=== PATIENT | female | born 1975 | race Hispanic/Latino ===

== ENCOUNTER 2019-08-10 13:52 | Emergency (ER) | payer SELFPAY ==
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
[2019-08-10 15:02] LABS: Albumin 3.7 g/dL (3.4-5.0); Bilirubin Total 0.3 mg/dL (0.2-1.0); Potassium 3.8 mmol/L (3.5-5.1); Protein, Total 7.4 g/dL (6.4-8.2)
[2019-08-10 15:09] LABS: Absolute Lymphocytes (CBC) 1.7 K/uL (0.7-4.9); Basophils % 0.6 % (0-1.3); Hematocrit 36.1 % (36.0-45.0); Lymphocytes % 24.5 % (15.3-44.8); MPV 8.6 fL (7.6-11.3); RBC Red Blood Cell Count 4.35 M/uL (3.86-4.86)
[2019-08-10] MEDS ORDERED: MORPHINE 4 MG/ML SYR ONE (15:19)
[2019-08-10] MEDS ORDERED: CEFAZOLIN/SWI 1gm 1 GM/10 ML SYR ONE (15:20)
[2019-08-10] MEDS ORDERED: TETANUS & DIPHTHERIA TOX,ADULT 0.5 ML VIAL ONE (15:20)
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
[2019-08-10 15:55] VITALS: TEMP 97.6; O2SAT 98
[2019-08-10 15:56] VITALS: BP 122/88
== END 2019-08-10 15:48 | disposition home or self-care (01) ==
LOC: ER 13:52
DX: M79.601 Pain in right arm (principal); Z18.10 Retained metal fragments, unspecified; Z23 Encounter for immunization
CPT/HCPCS: 36415; 80053; 85025; 90471; 90714; 96374; 96375; 99284; J0690

== ENCOUNTER 2023-09-14 02:18 | Emergency (ER) | payer SELFPAY ==
--- OUTSIDE RECORDS SUMMARY | 2023-09-14 03:21 | XMS REPORT | Continuity of Care Document ---
:1975 Author Organization [facility] t Address [address] [place] [address] Care Team Providers Name Role Phone DENISE OSULLIVAN Primary Care Physician Unavailable MARYANNE GUTIÉRREZ Attending Clinician Unavailable Rola Noland LVN Attending Clinician Unavailable Kerry Alvarez MA Attending Clinician Unavailable DENISE OSULLIVAN Attending Clinician Unavailable Maryanne Gutiérrez MD Attending Clinician Doctor Unassigned, [place] Attending Clinician Unavailable Arlette Ga MA Attending Clinician Unavailable Cathie Henderson RN Attending Clinician Unavailable [facility] Attending Clinician Unavailable Cathie Talley RN Attending Clinician Unavailable Deandre Denise CLINTON Attending Clinician [phone] Dasha Agustin CNM Attending Clinician ZEENAT LAWS Attending Clinician Unavailable ZEENAT LAWS Attending Clinician Unavailable ALEXANDRIA ASHFORD Attending Clinician Unavailable Christina Carr MD Attending Clinician [facility] Attending Clinician Unavailable Alexandria Nolan Attending Clinician Bruna Wagner LVN Attending Clinician Unavailable Ramiro Ballard DO Attending Clinician Beverly ESCALANTE, Philipp Clayton Attending Clinician Unavailable Payers Payer Name Policy Type Policy Number Effective Date Expiration Date [employer]ibr[employer] [id number] 2022 JOHN 0-100% 00:00:00 Problems Condition Condition Condition Status Onset Resolution Last Treating Co mments Source Name Details Category Date Date Treatment Clinician Date Seasonal Seasonal Disease Active Unive rs allergic allergic 31 ity of rhinitis rhinitis 00:00: [place] [id number] Medical Branch Encounter Encounter Disease Active Uni vers for for 9-20 ity of [place]pt [place] 00 Medical management management Br anch , , unspecifie unspecifie d type d type History of History of Disease Active U nivers bilateral bilateral 9-20 ity of tubal tubal 00:00: [place] ligation ligation 00 Medica l Branch Morbid Morbid Disease Active Univers obesity obesity 9-20 ity of 00:00: [address] [place] [address] Branch BMI BMI Disease Active Univers 40.0-44.9, 40.0-44.9, 9-20 it y of adult adult 00:00: [address] 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 3-08 [place] disorder[place], [place] episode, episode, 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 it y of ciency ciency 00:00: [place] virus virus 00 Medical infection) infection) Br anch Allergies, Adverse Reactions, Alerts Allergy Allergy Status Severity Reaction(s) Onset Inactive Treating Comm ents Source Name Type Date Date Clinician NO KNOWN Drug Active Univers ALLERGIE Class ity of S [facility] Social History Social Habit Start Date Stop Date Quantity Comments Source History SDOH University o f Alcohol Frequency [place] [facility] History SDOH University o f Alcohol Std Drinks [facility] History SDKS University o f Alcohol Binge [place] [facility] [place] Gender identity Universit y [facility] to 2023-01-25 2023-02-04 Not sure University of SARS-CoV-2 (event) 00:00:00 09:55:00 [facility] Alcohol intake 2023-02-04 2023-02-04 Current drinker Unive rsity of 00:00:00 00:00:00 of alcohol [facility] (finding) [place] Alcohol Comment 2022-07-17 2022-07-17 social Universit y of 00:00:00 00:00:00 [facility] Tobacco use and 2022-07-02 2022-07-02 Smokeless Universit y of exposure 00:00:00 00:00:00 tobacco non-user [facility] History of Social 2021-12-25 2021-12-25 Univers ity of function 00:00:00 00:00:00 [facility] Sex [birth year] Universit y of 00:00:00 00:00:00 [facility] Smoking Status Start Date Stop Date Source Never smoked tobacco [facility] Medications Ordered Filled Start Stop Current Ordering Indication Dosage Frequency Signature Comments Components Source Medication Medication Date Date Medication? Clinician (SIG) Name Name abacavir-do 2022-10 Yes [id number] 1{tbl} Take 1 Univers lutegravir- 0-02 tablet by ity of lamivudine 00:00: mouth [place] (TRIUMEQ) 00 daily. Medical 600-50-300 Branch mg per tablet abacavir-do 2022-10 Yes [id number] 1{tbl} Take 1 Univers lutegravir- 0-02 tablet by ity of lamivudine 00:00: mouth [place] (TRIUMEQ) 00 daily. Medical 600-50-300 Branch mg per tablet abacavir-do 2022-10 Yes [id number] 1{tbl} Take 1 Univers lutegravir- 0-02 tablet by ity of lamivudine 00:00: mouth [place] (TRIUMEQ) 00 daily. Medical 600-50-300 Branch mg per tablet abacavir-do 2022-10 Yes [id number] 1{tbl} Take 1 Univers lutegravir- 0-02 tablet by ity of lamivudine 00:00: mouth [place] (TRIUMEQ) 00 daily. Medical 600-50-300 Branch mg per tablet abacavir-do 2022-10- No [id number] 1{tbl} Take 1 Univers lutegravir- 0-02 10-02 tablet by it y of lamivudine 00:00: 00:00 mouth [place] (TRIUMEQ) 00 :00 daily. Medical 600-50-300 Branch mg per tablet abacavir-do 2022-10- No [id number] 1{tbl} Take 1 Univers lutegravir- 0-02 10-02 tablet by it y of lamivudine 00:00: 00:00 mouth [place] (TRIUMEQ) 00 :00 daily. Medical 600-50-300 Branch mg per tablet metroNIDAZO 0 2022- No [id number] 500mg Take 1 Univers LE 500 mg 4-25 05-03 tablet by ity of tablet 00:00: 04:59 mouth [place] 00 :00 every 12 Medical (twelve) Branch hours for 7 days. metroNIDAZO 0 2022- No [id number] 500mg Take 1 Univers LE 500 mg 4-25 05-03 tablet by ity of tablet 00:00: 04:59 mouth [place] 00 :00 every 12 Medical (twelve) Branch hours for 7 days. metroNIDAZO 2022- No [id number] 500mg Take 1 Univers LE 500 mg 4-25 05-03 tablet by ity of tablet 00:00: 04:59 mouth [place] 00 :00 every 12 Medical (twelve) Branch hours for 7 days. abacavir-do Yes 1{tbl} Take 1 Un negrita lutegravir- 4-20 tablet by ity of lamivudine 00:00: mouth [place] (TRIUMEQ) 00 daily. Medical 600-50-300 Branch mg per tablet abacavir-do Yes 1{tbl} Take 1 Un negrita lutegravir- 4-20 tablet by ity of lamivudine 00:00: mouth [place] (TRIUMEQ) 00 daily. Medical 600-50-300 Branch mg per tablet abacavir-do 0 Yes 1{tbl} Take 1 Un negrita lutegravir- 4-20 tablet by ity of lamivudine 00:00: mouth [place] (TRIUMEQ) 00 daily. Medical 600-50-300 Branch mg per tablet abacavir-do Yes 1{tbl} Take 1 Un negrita lutegravir- 4-20 tablet by ity of lamivudine 00:00: mouth [place] (TRIUMEQ) 00 daily. Medical 600-50-300 Branch mg per tablet abacavir-do 2022-0 Yes 1{tbl} Take 1 Un negrita lutegravir- 4-20 tablet by ity of lamivudine 00:00: mouth [place] (TRIUMEQ) 00 daily. Medical 600-50-300 Branch mg per tablet abacavir-do 2022-0 Yes 1{tbl} Take 1 Un negrita lutegravir- 4-20 tablet by ity of lamivudine 00:00: mouth [place] (TRIUMEQ) 00 daily. Medical 600-50-300 Branch mg per tablet abacavir-do 2022-0 Yes 1{tbl} Take 1 Un negrita lutegravir- 4-20 tablet by ity of lamivudine 00:00: mouth [place] (TRIUMEQ) 00 daily. Medical 600-50-300 Branch mg per tablet abacavir-do 2022-0 Yes 1{tbl} Take 1 Un negrita lutegravir- 4-20 tablet by ity of lamivudine 00:00: mouth [place] (TRIUMEQ) 00 daily. Medical 600-50-300 Branch mg per tablet abacavir-do 2022-0 Yes 1{tbl} Take 1 Un negrita lutegravir- 4-20 tablet by ity of lamivudine 00:00: mouth [place] (TRIUMEQ) 00 daily. Medical 600-50-300 Branch mg per tablet abacavir-do 2022-0 Yes 1{tbl} Take 1 Un negrita lutegravir- 4-20 tablet by ity of lamivudine 00:00: mouth [place] (TRIUMEQ) 00 daily. Medical 600-50-300 Branch mg per tablet abacavir-do 2022-0 Yes 1{tbl} Take 1 Un negrita lutegravir- 4-20 tablet by ity of lamivudine 00:00: mouth [place] (TRIUMEQ) 00 daily. Medical 600-50-300 Branch mg per tablet abacavir-do 2022-0 Yes 1{tbl} Take 1 Un negrita lutegravir- 4-20 tablet by ity of lamivudine 00:00: mouth [place] (TRIUMEQ) 00 daily. Medical 600-50-300 Branch mg per tablet abacavir-do 2022-0 Yes 1{tbl} Take 1 Un negrita lutegravir- 4-20 tablet by ity of lamivudine 00:00: mouth [place] (TRIUMEQ) 00 daily. Medical 600-50-300 Branch mg per tablet abacavir-do 0 2022- No 1{tbl} Take 1 U nivers lutegravir- 4-20 10-02 tablet by it y of lamivudine 00:00: 00:00 mouth [place] (TRIUMEQ) 00 :00 daily. Medical 600-50-300 Branch mg per tablet abacavir-do 0 3- No 1{tbl} Take 1 U nivers lutegravir- 4-20 10-02 tablet by it y of lamivudine 00:00: 00:00 mouth [place] (TRIUMEQ) 00 :00 daily. Medical 600-50-300 Branch mg per tablet abacavir-do 0 Yes [id number] 1{tbl} Take 1 Univers lutegravir- 2-02 tablet by ity of lamivudine 00:00: mouth [place] (TRIUMEQ) 00 daily. Medical 600-50-300 Branch mg per tablet abacavir-do 0 Yes [id number] 1{tbl} Take 1 Univers lutegravir- 2-02 tablet by ity of lamivudine 00:00: mouth [place] (TRIUMEQ) 00 daily. Medical 600-50-300 Branch mg per tablet abacavir-do 0 Yes [id number] 1{tbl} Take 1 Univers lutegravir- 2-02 tablet by ity of lamivudine 00:00: mouth [place] (TRIUMEQ) 00 daily. Medical 600-50-300 Branch mg per tablet abacavir-do 2022-0 Yes [id number] 1{tbl} Take 1 Univers lutegravir- 2-02 tablet by ity of lamivudine 00:00: mouth [place] (TRIUMEQ) 00 daily. Medical 600-50-300 Branch mg per tablet abacavir-do 0 Yes [id number] 1{tbl} Take 1 Univers lutegravir- 2-02 tablet by ity of lamivudine 00:00: mouth [place] (TRIUMEQ) 00 daily. Medical 600-50-300 Branch mg per tablet abacavir-do 0 Yes [id number] 1{tbl} Take 1 Univers lutegravir- 2-02 tablet by ity of lamivudine 00:00: mouth [place] (TRIUMEQ) 00 daily. Medical 600-50-300 Branch mg per tablet abacavir-do Yes [id number] 1{tbl} Take 1 Univers lutegravir- 2-02 tablet by ity of lamivudine 00:00: mouth [place] (TRIUMEQ) 00 daily. Medical 600-50-300 Branch mg per tablet abacavir-do Yes [id number] 1{tbl} Take 1 Univers lutegravir- 2-02 tablet by ity of lamivudine 00:00: mouth [place] (TRIUMEQ) 00 daily. Medical 600-50-300 Branch mg per tablet abacavir-do Yes [id number] 1{tbl} Take 1 Univers lutegravir- 2-02 tablet by ity of lamivudine 00:00: mouth [place] (TRIUMEQ) 00 daily. Medical 600-50-300 Branch mg per tablet abacavir-do Yes [id number] 1{tbl} Take 1 Univers lutegravir- 2-02 tablet by ity of lamivudine 00:00: mouth [place] (TRIUMEQ) 00 daily. Medical 600-50-300 Branch mg per tablet abacavir-do Yes [id number] 1{tbl} Take 1 Univers lutegravir- 2-02 tablet by ity of lamivudine 00:00: mouth [place] (TRIUMEQ) 00 daily. Medical 600-50-300 Branch mg per tablet abacavir-do Yes [id number] 1{tbl} Take 1 Univers lutegravir- 2-02 tablet by ity of lamivudine 00:00: mouth [place] (TRIUMEQ) 00 daily. Medical 600-50-300 Branch mg per tablet abacavir-do Yes [id number] 1{tbl} Take 1 Univers lutegravir- 2-02 tablet by ity of lamivudine 00:00: mouth [place] (TRIUMEQ) 00 daily. Medical 600-50-300 Branch mg per tablet abacavir-do Yes [id number] 1{tbl} Take 1 Univers lutegravir- 2-02 tablet by ity of lamivudine 00:00: mouth [place] (TRIUMEQ) 00 daily. Medical 600-50-300 Branch mg per tablet abacavir-do Yes [id number] 1{tbl} Take 1 Univers lutegravir- 2-02 tablet by ity of lamivudine 00:00: mouth [place] (TRIUMEQ) 00 daily. Medical 600-50-300 Branch mg per tablet abacavir-do 0 Yes [id number] 1{tbl} Take 1 Univers lutegravir- 2-02 tablet by ity of lamivudine 00:00: mouth [place] (TRIUMEQ) 00 daily. Medical 600-50-300 Branch mg per tablet abacavir-do 0 2022- No [id number] 1{tbl} Take 1 Univers lutegravir- 2-02 04-20 tablet by it y of lamivudine 00:00: 00:00 mouth [place] (TRIUMEQ) 00 :00 daily. Medical 600-50-300 Branch mg per tablet abacavir-do 0 2022- No [id number] 1{tbl} Take 1 Univers lutegravir- 2-02 04-20 tablet by it y of lamivudine 00:00: 00:00 mouth [place] (TRIUMEQ) 00 :00 daily. Medical 600-50-300 Branch mg per tablet abacavir-do 0 2022- No [id number] 1{tbl} Take 1 Univers lutegravir- 2-02 04-20 tablet by it y of lamivudine 00:00: 00:00 mouth [place] (TRIUMEQ) 00 :00 daily. Medical 600-50-300 Branch mg per tablet abacavir-do 0 2022- No [id number] 1{tbl} Take 1 Univers lutegravir- 2-02 04-20 tablet by it y of lamivudine 00:00: 00:00 mouth [place] (TRIUMEQ) 00 :00 daily. Medical 600-50-300 Branch mg per tablet abacavir-do 0 Yes [id number] 1{tbl} Take 1 Univers lutegravir- 1-26 tablet by ity of lamivudine 00:00: mouth [place] (TRIUMEQ) 00 daily. Medical 600-50-300 Branch mg per tablet abacavir-do 0 Yes [id number] 1{tbl} Take 1 Univers lutegravir- 1-26 tablet by ity of lamivudine 00:00: mouth [place] (TRIUMEQ) 00 daily. Medical 600-50-300 Branch mg per tablet abacavir-do 0 Yes [id number] 1{tbl} Take 1 Univers lutegravir- 1-26 tablet by ity of lamivudine 00:00: mouth [place] (TRIUMEQ) 00 daily. Medical 600-50-300 Branch mg per tablet abacavir-do Yes [id number] 1{tbl} Take 1 Univers lutegravir- 1-26 tablet by ity of lamivudine 00:00: mouth [place] (TRIUMEQ) 00 daily. Medical 600-50-300 Branch mg per tablet abacavir-do Yes [id number] 1{tbl} Take 1 Univers lutegravir- 1-26 tablet by ity of lamivudine 00:00: mouth [place] (TRIUMEQ) 00 daily. Medical 600-50-300 Branch mg per tablet abacavir-do Yes [id number] 1{tbl} Take 1 Univers lutegravir- 1-26 tablet by ity of lamivudine 00:00: mouth [place] (TRIUMEQ) 00 daily. Medical 600-50-300 Branch mg per tablet abacavir-do 2022- No [id number] 1{tbl} Take 1 Univers lutegravir- 1-26 - tablet by it y of lamivudine 00:00: 00:00 mouth [place] (TRIUMEQ) 00 :00 daily. Medical 600-50-300 Branch mg per tablet abacavir-do 2022- No [id number] 1{tbl} Take 1 Univers lutegravir- 1-26 - tablet by it y of lamivudine 00:00: 00:00 mouth [place] (TRIUMEQ) 00 :00 daily. Medical 600-50-300 Branch mg per tablet abacavir-do 2022- No [id number] 1{tbl} Take 1 Univers lutegravir- 1-26 - tablet by it y of lamivudine 00:00: 00:00 mouth [place] (TRIUMEQ) 00 :00 daily. Medical 600-50-300 Branch mg per tablet abacavir-do 2022- No [id number] 1{tbl} Take 1 Univers lutegravir- 1-26 - tablet by it y of lamivudine 00:00: 00:00 mouth [place] (TRIUMEQ) 00 :00 daily. Medical 600-50-300 Branch mg per tablet abacavir-do 0 202- No [id number] 1{tbl} Take 1 Univers lutegravir- 1-26 - tablet by it y of lamivudine 00:00: 00:00 mouth [place] (TRIUMEQ) 00 :00 daily. Medical 600-50-300 Branch mg per tablet abacavir-do 0 2022- No [id number] 1{tbl} Take 1 Univers lutegravir- 1-26 - tablet by it y of lamivudine 00:00: 00:00 mouth [place] (TRIUMEQ) 00 :00 daily. Medical 600-50-300 Branch mg per tablet abacavir-do 0 2022- No [id number] 1{tbl} Take 1 Univers lutegravir- 1-26 - tablet by it y of lamivudine 00:00: 00:00 mouth [place] (TRIUMEQ) 00 :00 daily. Medical 600-50-300 Branch mg per tablet abacavir-do 2022- No [id number] 1{tbl} Take 1 Univers lutegravir- 1-26 11-12 tablet by it y of lamivudine 00:00: 00:00 mouth [place] (TRIUMEQ) 00 :00 daily. Medical 600-50-300 Branch mg per tablet abacavir-do 0 Yes [id number] 1{tbl} Take 1 Univers lutegravir- 1-25 tablet by ity of lamivudine 00:00: mouth [place] (TRIUMEQ) 00 daily. Medical 600-50-300 Branch mg per tablet abacavir-do 0 Yes [id number] 1{tbl} Take 1 Univers lutegravir- 1-25 tablet by ity of lamivudine 00:00: mouth [place] (TRIUMEQ) 00 daily. Medical 600-50-300 Branch mg per tablet abacavir-do 0 Yes [id number] 1{tbl} Take 1 Univers lutegravir- 1-25 tablet by ity of lamivudine 00:00: mouth [place] (TRIUMEQ) 00 daily. Medical 600-50-300 Branch mg per tablet abacavir-do 0 2022- No [id number] 1{tbl} Take 1 Univers lutegravir- 1-25 - tablet by it y of lamivudine 00:00: 00:00 mouth [place] (TRIUMEQ) 00 :00 daily. Medical 600-50-300 Branch mg per tablet abacavir-do 0 2022- No [id number] 1{tbl} Take 1 Univers lutegravir- 1-25 -26 tablet by it y of lamivudine 00:00: 00:00 mouth [place] (TRIUMEQ) 00 :00 daily. Medical 600-50-300 Branch mg per tablet abacavir-do 0 2022- No [id number] 1{tbl} Take 1 Univers lutegravir- 1-25 -26 tablet by it y of lamivudine 00:00: 00:00 mouth [place] (TRIUMEQ) 00 :00 daily. Medical 600-50-300 Branch mg per tablet abacavir-do 2022- No [id number] 1{tbl} Take 1 Univers lutegravir- 1-25 -26 tablet by it y of lamivudine 00:00: 00:00 mouth [place] (TRIUMEQ) 00 :00 daily. Medical 600-50-300 Branch mg per tablet abacavir-do Yes [id number] 1{tbl} Take 1 Univers lutegravir- 8-26 tablet by ity of lamivudine 00:00: mouth [place] (TRIUMEQ) 00 daily. Medical 600-50-300 Branch mg per tablet abacavir-do Yes [id number] 1{tbl} Take 1 Univers lutegravir- 8-26 tablet by ity of lamivudine 00:00: mouth [place] (TRIUMEQ) 00 daily. Medical 600-50-300 Branch mg per tablet abacavir-do Yes [id number] 1{tbl} Take 1 Univers lutegravir- 8-26 tablet by ity of lamivudine 00:00: mouth [place] (TRIUMEQ) 00 daily. Medical 600-50-300 Branch mg per tablet abacavir-do Yes [id number] 1{tbl} Take 1 Univers lutegravir- 8-26 tablet by ity of lamivudine 00:00: mouth [place] (TRIUMEQ) 00 daily. Medical 600-50-300 Branch mg per tablet abacavir-do Yes [id number] 1{tbl} Take 1 Univers lutegravir- 8-26 tablet by ity of lamivudine 00:00: mouth [place] (TRIUMEQ) 00 daily. Medical 600-50-300 Branch mg per tablet abacavir-do Yes [id number] 1{tbl} Take 1 Univers lutegravir- 8-26 tablet by ity of lamivudine 00:00: mouth [place] (TRIUMEQ) 00 daily. Medical 600-50-300 Branch mg per tablet abacavir-do Yes [id number] 1{tbl} Take 1 Univers lutegravir- 8-26 tablet by ity of lamivudine 00:00: mouth [place] (TRIUMEQ) 00 daily. Medical 600-50-300 Branch mg per tablet abacavir-do Yes [id number] 1{tbl} Take 1 Univers lutegravir- 8-26 tablet by ity of lamivudine 00:00: mouth [place] (TRIUMEQ) 00 daily. Medical 600-50-300 Branch mg per tablet abacavir-do Yes [id number] 1{tbl} Take 1 Univers lutegravir- 8-26 tablet by ity of lamivudine 00:00: mouth [place] (TRIUMEQ) 00 daily. Medical 600-50-300 Branch mg per tablet abacavir-do Yes [id number] 1{tbl} Take 1 Univers lutegravir- 8-26 tablet by ity of lamivudine 00:00: mouth [place] (TRIUMEQ) 00 daily. Medical 600-50-300 Branch mg per tablet abacavir-do Yes [id number] 1{tbl} Take 1 Univers lutegravir- 8-26 tablet by ity of lamivudine 00:00: mouth [place] (TRIUMEQ) 00 daily. Medical 600-50-300 Branch mg per tablet abacavir-do Yes [id number] 1{tbl} Take 1 Univers lutegravir- 8-26 tablet by ity of lamivudine 00:00: mouth [place] (TRIUMEQ) 00 daily. Medical 600-50-300 Branch mg per tablet abacavir-do Yes [id number] 1{tbl} Take 1 Univers lutegravir- 8-26 tablet by ity of lamivudine 00:00: mouth [place] (TRIUMEQ) 00 daily. Medical 600-50-300 Branch mg per tablet abacavir-do Yes [id number] 1{tbl} Take 1 Univers lutegravir- 8-26 tablet by ity of lamivudine 00:00: mouth [place] (TRIUMEQ) 00 daily. Medical 600-50-300 Branch mg per tablet abacavir-do 2020-0 Yes [id number] 1{tbl} Take 1 Univers lutegravir- 8-26 tablet by ity of lamivudine 00:00: mouth [place] (TRIUMEQ) 00 daily. Medical 600-50-300 Branch mg per tablet abacavir-do 2020-0 Yes [id number] 1{tbl} Take 1 Univers lutegravir- 8-26 tablet by ity of lamivudine 00:00: mouth [place] (TRIUMEQ) 00 daily. Medical 600-50-300 Branch mg per tablet abacavir-do 2020-0 Yes [id number] 1{tbl} Take 1 Univers lutegravir- 8-26 tablet by ity of lamivudine 00:00: mouth [place] (TRIUMEQ) 00 daily. Medical 600-50-300 Branch mg per tablet abacavir-do 0 Yes [id number] 1{tbl} Take 1 Univers lutegravir- 8-26 tablet by ity of lamivudine 00:00: mouth [place] (TRIUMEQ) 00 daily. Medical 600-50-300 Branch mg per tablet abacavir-do 0 3- No [id number] 1{tbl} Take 1 Univers lutegravir- 8-26 -25 tablet by it y of lamivudine 00:00: 00:00 mouth [place] (TRIUMEQ) 00 :00 daily. Medical 600-50-300 Branch mg per tablet abacavir-do 2020-0 2023- No [id number] 1{tbl} Take 1 Univers lutegravir- 8-26 01-25 tablet by it y of lamivudine 00:00: 00:00 mouth [place] (TRIUMEQ) 00 :00 daily. Medical 600-50-300 Branch mg per tablet abacavir-do 2020-0 2023- No [id number] 1{tbl} Take 1 Univers lutegravir- 8-26 01-25 tablet by it y of lamivudine 00:00: 00:00 mouth [place] (TRIUMEQ) 00 :00 daily. Medical 600-50-300 Branch mg per tablet abacavir-do 2020-0 2023- No [id number] 1{tbl} Take 1 Univers lutegravir- 8-26 01-25 tablet by it y of lamivudine 00:00: 00:00 mouth [place] (TRIUMEQ) 00 :00 daily. Medical 600-50-300 Branch mg per tablet abacavir-do 2022- No [id number] 1{tbl} Take 1 Univers lutegravir- 06-12 tablet by it y of lamivudine 00:00: 00:00 mouth [place] (TRIUMEQ) 00 :00 daily. Medical 600-50-300 Branch mg per tablet abacavir-do 2022- No [id number] 1{tbl} Take 1 Univers lutegravir- 06-12 tablet by it y of lamivudine 00:00: 00:00 mouth [place] (TRIUMEQ) 00 :00 daily. Medical 600-50-300 Branch mg per tablet cetirizine 2021- No [id number] 10mg Take 1 Univers (ZYRTEC) 10 06-12 tablet by it y of mg tablet 00:00: 00:00 mouth [place] 00 :00 daily. Medical Branch fluticasone 2021- No [id number] 2{spray Use 2 Univers propionate 06-12 } Sprays in ity of 50 00:00: 00:00 each [place] mcg/actuati 00 :00 nostril Medic al on nasal daily. Branch spray Immunizations Ordered Filled Date Status Comments Source Immunization Name Immunization Name Influenza Virus 2022-07-02 Completed Universit y of Vaccine Quad IM 3+ 00:00:00 [facility] Influenza Virus 2022-07-02 Completed Universit y of Vaccine Quad IM, 00:00:00 [facility] [place] [facility] dical Preserv and ABX Branch Free 6 MO-64 YRS Pneumococcal 20 2022-07-02 Completed Universit y of Conjugate, PCV20 00:00:00 [place] [facility]ical (Prevnar 20) Branch Influenza Virus 2022-07-02 Completed Universit y of Vaccine Quad IM 3+ 00:00:00 [facility] Influenza Virus 2022-07-02 Completed Universit y of Vaccine Quad IM, 00:00:00 [facility] [place] [facility] dical Preserv and ABX Branch Free 6 MO-64 YRS Pneumococcal 20 2022-07-02 Completed Universit y of Conjugate, PCV20 00:00:00 [facility] [place] [facility] dical (Prevnar 20) [place] Influenza Virus 2022-07-02 Completed Universit y of Vaccine Quad IM 3+ 00:00:00 [facility] Influenza Virus 2022-07-02 Completed Universit y of Vaccine Quad IM, 00:00:00 [facility] [place] [facility] dical Preserv and ABX Branch Free 6 MO-64 YRS Pneumococcal 20 2022-07-02 Completed Universit y of Conjugate, PCV20 00:00:00 [facility] [place] [facility] dical (Prevnar 20) [place] Influenza Virus 2022-07-02 Completed Universit y of Vaccine Quad IM 3+ 00:00:00 [facility] Influenza Virus 2022-07-02 Completed Universit y of Vaccine Quad IM, 00:00:00 [facility] [place] [facility] dical Preserv and ABX Branch Free 6 MO-64 YRS Pneumococcal 20 2022-07-02 Completed Universit y of Conjugate, PCV20 00:00:00 [facility] [place] [facility] dical (Prevnar 20) [place] Influenza Virus 2022-07-02 Completed Universit y of Vaccine Quad IM 3+ 00:00:00 [facility] Influenza Virus 2022-07-02 Completed Universit y of Vaccine Quad IM, 00:00:00 [facility] [place] [facility] dical Preserv and ABX Branch Free 6 MO-64 YRS Pneumococcal 20 2022-07-02 Completed Universit y of Conjugate, PCV20 00:00:00 [facility] [place] [facility] dical (Prevnar 20) [place] Influenza Virus 2022-07-02 Completed Universit y of Vaccine Quad IM 3+ 00:00:00 [facility] Influenza Virus 2022-07-02 Completed Universit y of Vaccine Quad IM, 00:00:00 [facility] [place] [facility] dical Preserv and ABX Branch Free 6 MO-64 YRS Pneumococcal 20 2022-07-02 Completed Universit y of Conjugate, PCV20 00:00:00 [facility] [place] [facility] dical (Prevnar 20) [place] Influenza Virus 2022-07-02 Completed Universit y of Vaccine Quad IM 3+ 00:00:00 [facility] Influenza Virus 2022-07-02 Completed Universit y of Vaccine Quad IM, 00:00:00 [facility] [place] [facility] dical Preserv and ABX Branch Free 6 MO-64 YRS Pneumococcal 20 2022-07-02 Completed Universit y of Conjugate, PCV20 00:00:00 [facility] [place] [facility] dical (Prevnar 20) [place] Influenza Virus 2022-07-02 Completed Universit y of Vaccine Quad IM 3+ 00:00:00 [facility] Influenza Virus 2022-07-02 Completed Universit y of Vaccine Quad IM, 00:00:00 [place] [facility] [facility] dical Preserv and ABX Branch Free 6 MO-64 YRS Pneumococcal 20 2022-07-02 Completed [facility] Conjugate, PCV20 00:00:00 [facility] dical (Prevnar 20) [place] Influenza Virus 2022-07-02 Completed [facility] Vaccine Quad IM 3+ 00:00:00 [facility] Influenza Virus 2022-07-02 Completed [facility] Vaccine Quad IM, 00:00:00 [facility] dical Preserv and ABX Branch Free 6 MO-64 YRS Pneumococcal 20 2022-07-02 Completed [facility] Conjugate, PCV20 00:00:00 [facility] dical (Prevnar 20) [place] Influenza Virus 2022-07-02 Completed [facility] Vaccine Quad IM 3+ 00:00:00 [facility] Influenza Virus 2022-07-02 Completed [facility] Vaccine Quad IM, 00:00:00 [facility] dical Preserv and ABX Branch Free 6 MO-64 YRS Pneumococcal 20 2022-07-02 Completed [facility] Conjugate, PCV20 00:00:00 [facility] dical (Prevnar 20) [place] Influenza Virus 2022-07-02 Completed [facility] Vaccine Quad IM 3+ 00:00:00 [facility] Influenza Virus 2022-07-02 Completed [facility] of Vaccine Quad IM, 00:00:00 [facility] dical Preserv and ABX Branch Free 6 MO-64 YRS Pneumococcal 20 2022-07-02 Completed [facility] Conjugate, PCV20 00:00:00 [facility] dical (Prevnar 20) [place] Influenza Virus 2022-07-02 Completed [facility] Vaccine Quad IM 3+ 00:00:00 [facility] Influenza Virus 2022-07-02 Completed [facility] of Vaccine Quad IM, 00:00:00 [facility] dical Preserv and ABX Branch Free 6 MO-64 YRS Pneumococcal 20 2022-07-02 Completed [facility] Conjugate, PCV20 00:00:00 [facility] dical (Prevnar 20) [place] Influenza Virus 2022-07-02 Completed [facility] Vaccine Quad IM 3+ 00:00:00 [facility] Influenza Virus 2022-07-02 Completed [facility] Vaccine Quad IM, 00:00:00 [facility] dical Preserv and ABX Branch Free 6 MO-64 YRS Pneumococcal 20 2022-07-02 Completed [facility] Conjugate, PCV20 00:00:00 [facility] dical (Prevnar 20) [place] Influenza Virus 2022-07-02 Completed [facility] Vaccine Quad IM 3+ 00:00:00 [facility] Influenza Virus 2022-07-02 Completed [facility] of Vaccine Quad IM, 00:00:00 [facility] dical Preserv and ABX Branch Free 6 MO-64 YRS Pneumococcal 20 2022-07-02 Completed [facility] Conjugate, PCV20 00:00:00 [facility] dical (Prevnar 20) [place] Influenza Virus 2022-07-02 Completed [facility] Vaccine Quad IM 3+ 00:00:00 [facility] Influenza Virus 2022-07-02 Completed [facility] of Vaccine Quad IM, 00:00:00 [facility] dical Preserv and ABX Branch Free 6 MO-64 YRS Pneumococcal 20 2022-07-02 Completed [facility] Conjugate, PCV20 00:00:00 [facility] dical (Prevnar 20) [place] Influenza Virus 2022-07-02 Completed [facility] Vaccine Quad IM 3+ 00:00:00 [facility] Influenza Virus 2022-07-02 Completed [facility] of Vaccine Quad IM, 00:00:00 [facility] dical Preserv and ABX Branch Free 6 MO-64 YRS Pneumococcal 20 2022-07-02 Completed [facility] Conjugate, PCV20 00:00:00 [facility] dical (Prevnar 20) [place] Influenza Virus 2022-07-02 Completed [facility] Vaccine Quad IM 3+ 00:00:00 [facility] Influenza Virus 2022-07-02 Completed [facility] of Vaccine Quad IM, 00:00:00 [facility] dical Preserv and ABX Branch Free 6 MO-64 YRS Pneumococcal 20 2022-07-02 Completed [facility] Conjugate, PCV20 00:00:00 [facility] dical (Prevnar 20) [place] Influenza Virus 2022-07-02 Completed [facility] of Vaccine Quad IM 3+ 00:00:00 [facility] Influenza Virus 2022-07-02 Completed [facility] of Vaccine Quad IM, 00:00:00 [facility] dical Preserv and ABX Branch Free 6 MO-64 YRS Pneumococcal 20 2022-07-02 Completed [facility] Conjugate, PCV20 00:00:00 [facility] dical (Prevnar 20) [place] Influenza Virus 2022-07-02 Completed [facility] Vaccine Quad IM 3+ 00:00:00 [facility] Influenza Virus 2022-07-02 Completed [facility] of Vaccine Quad IM, 00:00:00 [facility] dical Preserv and ABX Branch Free 6 MO-64 YRS Pneumococcal 20 2022-07-02 Completed [facility] of Conjugate, PCV20 00:00:00 [facility] dical (Prevnar 20) [place] Influenza Virus 2022-07-02 Completed [facility] Vaccine Quad IM 3+ 00:00:00 [facility] Influenza Virus 2022-07-02 Completed [facility] of Vaccine Quad IM, 00:00:00 [facility] dical Preserv and ABX Branch Free 6 MO-64 YRS Pneumococcal 20 2022-07-02 Completed [facility] of Conjugate, PCV20 00:00:00 [facility] dical (Prevnar 20) [place] Influenza Virus 2022-07-02 Completed [facility] Vaccine Quad IM 3+ 00:00:00 [facility] Influenza Virus 2022-07-02 Completed [facility] of Vaccine Quad IM, 00:00:00 [facility] dical Preserv and ABX Branch Free 6 MO-64 YRS Pneumococcal 20 2022-07-02 Completed [facility] Conjugate, PCV20 00:00:00 [facility] dical (Prevnar 20) [place] Influenza Virus 2022-07-02 Completed [facility] Vaccine Quad IM 3+ 00:00:00 [facility] Influenza Virus 2022-07-02 Completed [facility] of Vaccine Quad IM, 00:00:00 [facility] dical Preserv and ABX Branch Free 6 MO-64 YRS Pneumococcal 20 2022-07-02 Completed [facility] Conjugate, PCV20 00:00:00 [facility] dical (Prevnar 20) [place] Influenza Virus 2022-07-02 Completed [facility] Vaccine Quad IM 3+ 00:00:00 [facility] Influenza Virus 2022-07-02 Completed [facility] of Vaccine Quad IM, 00:00:00 [facility] dical Preserv and ABX Branch Free 6 MO-64 YRS Pneumococcal 20 2022-07-02 Completed [facility] Conjugate, PCV20 00:00:00 [facility] dical (Prevnar 20) [place] Influenza Virus 2022-07-02 Completed [facility] of Vaccine Quad IM 3+ 00:00:00 [facility] Influenza Virus 2022-07-02 Completed [facility] of Vaccine Quad IM, 00:00:00 [facility] dical Preserv and ABX Branch Free 6 MO-64 YRS Pneumococcal 20 2022-07-02 Completed [facility] of Conjugate, PCV20 00:00:00 [facility] dical (Prevnar 20) [place] Influenza Virus 2022-07-02 Completed [facility] of Vaccine Quad IM 3+ 00:00:00 [facility] Influenza Virus 2022-07-02 Completed [facility] of Vaccine Quad IM, 00:00:00 [facility] dical Preserv and ABX Branch Free 6 MO-64 YRS Pneumococcal 20 2022-07-02 Completed [facility] of Conjugate, PCV20 00:00:00 [facility] dical (Prevnar 20) [place] Influenza Virus 2022-07-02 Completed [facility] of Vaccine Quad IM 3+ 00:00:00 [facility] Influenza Virus 2022-07-02 Completed [facility] of Vaccine Quad IM, 00:00:00 [facility] dical Preserv and ABX Branch Free 6 MO-64 YRS Pneumococcal 20 2022-07-02 Completed [facility] Conjugate, PCV20 00:00:00 [facility] dical (Prevnar 20) [place] Influenza Virus 2022-07-02 Completed [facility] of Vaccine Quad IM 3+ 00:00:00 [facility] Influenza Virus 2022-07-02 Completed [facility] of Vaccine Quad IM, 00:00:00 [facility] dical Preserv and ABX Branch Free 6 MO-64 YRS Pneumococcal 20 2022-07-02 Completed [facility] of Conjugate, PCV20 00:00:00 [facility] dical (Prevnar 20) [place] Influenza Virus 2022-07-02 Completed [facility] of Vaccine Quad IM 3+ 00:00:00 [facility] Influenza Virus 2022-07-02 Completed [facility] of Vaccine Quad IM, 00:00:00 [facility] dical Preserv and ABX Branch Free 6 MO-64 YRS Pneumococcal 20 2022-07-02 Completed [facility] Conjugate, PCV20 00:00:00 [facility] dical (Prevnar 20) [place] Influenza Virus 2022-07-02 Completed [facility] of Vaccine Quad IM 3+ 00:00:00 [facility] Influenza Virus 2022-07-02 Completed [facility] of Vaccine Quad IM, 00:00:00 [facility] dical Preserv and ABX Branch Free 6 MO-64 YRS Pneumococcal 20 2022-07-02 Completed [facility] of Conjugate, PCV20 00:00:00 [facility] dical (Prevnar 20) [place] Influenza Virus 2022-07-02 Completed [facility] of Vaccine Quad IM 3+ 00:00:00 [facility] Influenza Virus 2022-07-02 Completed [facility] of Vaccine Quad IM, 00:00:00 [facility] dical Preserv and ABX Branch Free 6 MO-64 YRS Pneumococcal 20 2022-07-02 Completed [facility] of Conjugate, PCV20 00:00:00 [facility] dical (Prevnar 20) [place] Influenza Virus 2022-07-02 Completed [facility] of Vaccine Quad IM 3+ 00:00:00 [facility] Influenza Virus 2022-07-02 Completed [facility] of Vaccine Quad IM, 00:00:00 [facility] dical Preserv and ABX Branch Free 6 MO-64 YRS Pneumococcal 20 2022-07-02 Completed [facility] of Conjugate, PCV20 00:00:00 [facility] dical (Prevnar 20) [place] Influenza Virus 2022-07-02 Completed [facility] of Vaccine Quad IM 3+ 00:00:00 [facility] Influenza Virus 2022-07-02 Completed [facility] of Vaccine Quad IM, 00:00:00 [facility] dical Preserv and ABX Branch Free 6 MO-64 YRS Pneumococcal 20 2022-07-02 Completed [facility] of Conjugate, PCV20 00:00:00 [facility] dical (Prevnar 20) [place] Influenza Virus 2022-07-02 Completed [facility] of Vaccine Quad IM 3+ 00:00:00 [facility] Influenza Virus 2022-07-02 Completed [facility] of Vaccine Quad IM, 00:00:00 [facility] dical Preserv and ABX Branch Free 6 MO-64 YRS Pneumococcal 20 2022-07-02 Completed [facility] of Conjugate, PCV20 00:00:00 [facility] dical (Prevnar 20) [place] Influenza Virus 2022-07-02 Completed [facility] of Vaccine Quad IM 3+ 00:00:00 [facility] Influenza Virus 2022-07-02 Completed [facility] of Vaccine Quad IM, 00:00:00 [facility] dical Preserv and ABX Branch Free 6 MO-64 YRS Pneumococcal 20 2022-07-02 Completed [facility] of Conjugate, PCV20 00:00:00 [facility] dical (Prevnar 20) [place] Influenza Virus 2022-07-02 Completed [facility] of Vaccine Quad IM 3+ 00:00:00 [facility] Influenza Virus 2022-07-02 Completed [facility] of Vaccine Quad IM, 00:00:00 [facility] dical Preserv and ABX Branch Free 6 MO-64 YRS Pneumococcal 20 2022-07-02 Completed [facility] of Conjugate, PCV20 00:00:00 [facility] dical (Prevnar 20) [place] Influenza Virus 2022-07-02 Completed [facility] of Vaccine Quad IM 3+ 00:00:00 [facility] Influenza Virus 2022-07-02 Completed [facility] of Vaccine Quad IM, 00:00:00 [facility] dical Preserv and ABX Branch Free 6 MO-64 YRS Pneumococcal 20 2022-07-02 Completed [facility] of Conjugate, PCV20 00:00:00 [facility] dical (Prevnar 20) [place] Influenza Virus 2022-07-02 Completed [facility] of Vaccine Quad IM 3+ 00:00:00 [facility] Influenza Virus 2022-07-02 Completed [facility] of Vaccine Quad IM, 00:00:00 [facility] dical Preserv and ABX Branch Free 6 MO-64 YRS Pneumococcal 20 2022-07-02 Completed [facility] of Conjugate, PCV20 00:00:00 [facility] dical (Prevnar 20) Branch Influenza Virus 2022-07-02 Completed [facility] of Vaccine Quad IM 3+ 00:00:00 [facility] Influenza Virus 2022-07-02 Completed [facility] of Vaccine Quad IM, 00:00:00 [facility] dical Preserv and ABX Branch Free 6 MO-64 YRS Pneumococcal 20 2022-07-02 Completed [facility] of Conjugate, PCV20 00:00:00 [facility] dical (Prevnar 20) [place] Influenza Virus 2022-07-02 Completed [facility] of Vaccine Quad IM 3+ 00:00:00 [facility] Influenza Virus 2022-07-02 Completed [facility] of Vaccine Quad IM, 00:00:00 [facility] dical Preserv and ABX Branch Free 6 MO-64 YRS Pneumococcal 20 2022-07-02 Completed [facility] of Conjugate, PCV20 00:00:00 [facility] dical (Prevnar 20) [place] Influenza Virus 2022-07-02 Completed [facility] of Vaccine Quad IM 3+ 00:00:00 [facility] Influenza Virus 2022-07-02 Completed [facility] of Vaccine Quad IM, 00:00:00 [facility] dical Preserv and ABX Branch Free 6 MO-64 YRS Pneumococcal 20 2022-07-02 Completed [facility] of Conjugate, PCV20 00:00:00 [facility] dical (Prevnar 20) [place] Influenza Virus 2022-07-02 Completed [facility] of Vaccine Quad IM 3+ 00:00:00 [facility] Influenza Virus 2022-07-02 Completed [facility] of Vaccine Quad IM, 00:00:00 [facility] dical Preserv and ABX Branch Free 6 MO-64 YRS Pneumococcal 20 2022-07-02 Completed [facility] of Conjugate, PCV20 00:00:00 [facility] dical (Prevnar 20) [place] Influenza Virus 2022-07-02 Completed [facility] of Vaccine Quad IM 3+ 00:00:00 [facility] Influenza Virus 2022-07-02 Completed [facility] of Vaccine Quad IM, 00:00:00 [facility] dical Preserv and ABX Branch Free 6 MO-64 YRS Pneumococcal 20 2022-07-02 Completed [facility] of Conjugate, PCV20 00:00:00 [facility] dical (Prevnar 20) [place] Influenza Virus 2022-07-02 Completed [facility] of Vaccine Quad IM 3+ 00:00:00 [facility] Influenza Virus 2022-07-02 Completed [facility] of Vaccine Quad IM, 00:00:00 [facility] dical Preserv and ABX Branch Free 6 MO-64 YRS Pneumococcal 20 2022-07-02 Completed [facility] of Conjugate, PCV20 00:00:00 [facility] dical (Prevnar 20) [place] Influenza Virus 2022-07-02 Completed [facility] of Vaccine Quad IM 3+ 00:00:00 [facility] Influenza Virus 2022-07-02 Completed [facility] of Vaccine Quad IM, 00:00:00 [facility] dical Preserv and ABX Branch Free 6 MO-64 YRS Pneumococcal 20 2022-07-02 Completed [facility] of Conjugate, PCV20 00:00:00 [facility] dical (Prevnar 20) Branch Influenza Virus 2022-07-02 Completed [facility] of Vaccine Quad IM 3+ 00:00:00 [facility] Influenza Virus 2022-07-02 Completed [facility] of Vaccine Quad IM, 00:00:00 [facility] dical Preserv and ABX Branch Free 6 MO-64 YRS Pneumococcal 20 2022-07-02 Completed [facility] of Conjugate, PCV20 00:00:00 [facility] dical (Prevnar 20) [place] Influenza Virus 2022-07-02 Completed [facility] of Vaccine Quad IM 3+ 00:00:00 [facility] Influenza Virus 2022-07-02 Completed [facility] y of Vaccine Quad IM, 00:00:00 [facility] dical Preserv and ABX Branch Free 6 MO-64 YRS Pneumococcal 20 2022-07-02 Completed [facility] of Conjugate, PCV20 00:00:00 [facility] dical (Prevnar 20) [place] Influenza Virus 2022-07-02 Completed [facility] of Vaccine Quad IM 3+ 00:00:00 [facility] Influenza Virus 2022-07-02 Completed [facility] of Vaccine Quad IM, 00:00:00 [facility] dical Preserv and ABX Branch Free 6 MO-64 YRS Pneumococcal 20 2022-07-02 Completed [facility] y of Conjugate, PCV20 00:00:00 [facility] dical (Prevnar 20) [place] Influenza Virus 2022-07-02 Completed [facility] of Vaccine Quad IM 3+ 00:00:00 [facility] Influenza Virus 2022-07-02 Completed [facility] of Vaccine Quad IM, 00:00:00 [facility] dical Preserv and ABX Branch Free 6 MO-64 YRS Pneumococcal 20 2022-07-02 Completed [facility] of Conjugate, PCV20 00:00:00 [facility] dical (Prevnar 20) [place] Influenza Virus 2022-07-02 Completed [facility] of Vaccine Quad IM 3+ 00:00:00 [facility] Influenza Virus 2022-07-02 Completed [facility] y of Vaccine Quad IM, 00:00:00 [facility] dical Preserv and ABX Branch Free 6 MO-64 YRS Pneumococcal 20 2022-07-02 Completed [facility] of Conjugate, PCV20 00:00:00 [facility] dical (Prevnar 20) [place] Influenza Virus 2022-07-02 Completed [facility] y of Vaccine Quad IM 3+ 00:00:00 [facility] Influenza Virus 2022-07-02 Completed [facility] y of Vaccine Quad IM, 00:00:00 [facility] dical Preserv and ABX Branch Free 6 MO-64 YRS Pneumococcal 20 2022-07-02 Completed [facility] of Conjugate, PCV20 00:00:00 [facility] dical (Prevnar 20) [place] Influenza Virus 2022-07-02 Completed [facility] of Vaccine Quad IM 3+ 00:00:00 [facility] Influenza Virus 2022-07-02 Completed [facility] of Vaccine Quad IM, 00:00:00 [facility] dical Preserv and ABX Branch Free 6 MO-64 YRS Pneumococcal 20 2022-07-02 Completed [facility] of Conjugate, PCV20 00:00:00 [facility] dical (Prevnar 20) [place] Influenza Virus 2022-07-02 Completed [facility] of Vaccine Quad IM 3+ 00:00:00 [facility] Influenza Virus 2022-07-02 Completed [facility] of Vaccine Quad IM, 00:00:00 [facility] dical Preserv and ABX Branch Free 6 MO-64 YRS Pneumococcal 20 2022-07-02 Completed [facility] of Conjugate, PCV20 00:00:00 [facility] dical (Prevnar 20) [place] Influenza Virus 2022-07-02 Completed [facility] of Vaccine Quad IM 3+ 00:00:00 [facility] Influenza Virus 2022-07-02 Completed [facility] of Vaccine Quad IM, 00:00:00 [facility] dical Preserv and ABX Branch Free 6 MO-64 YRS Pneumococcal 20 2022-07-02 Completed [facility] of Conjugate, PCV20 00:00:00 [facility] dical (Prevnar 20) [place] Influenza Virus 2022-07-02 Completed [facility] of Vaccine Quad IM 3+ 00:00:00 [facility] Influenza Virus 2022-07-02 Completed [facility] of Vaccine Quad IM, 00:00:00 [facility] dical Preserv and ABX Branch Free 6 MO-64 YRS Pneumococcal 20 2022-07-02 Completed [facility] of Conjugate, PCV20 00:00:00 [facility] dical (Prevnar 20) [place] Influenza Virus 2022-07-02 Completed [facility] of Vaccine Quad IM 3+ 00:00:00 [facility] Influenza Virus 2022-07-02 Completed [facility] of Vaccine Quad IM, 00:00:00 [facility] dical Preserv and ABX Branch Free 6 MO-64 YRS Pneumococcal 20 2022-07-02 Completed [facility] of Conjugate, PCV20 00:00:00 [facility] dical (Prevnar 20) [place] Influenza Virus 2022-07-02 Completed [facility] y of Vaccine Quad IM 3+ 00:00:00 [facility] Influenza Virus 2022-07-02 Completed [facility] of Vaccine Quad IM, 00:00:00 [facility] dical Preserv and ABX Branch Free 6 MO-64 YRS Pneumococcal 20 2022-07-02 Completed [facility] of Conjugate, PCV20 00:00:00 [facility] dical (Prevnar 20) [place] Influenza Virus 2022-07-02 Completed [facility] of Vaccine Quad IM 3+ 00:00:00 [facility] Influenza Virus 2022-07-02 Completed [facility] of Vaccine Quad IM, 00:00:00 [facility] dical Preserv and ABX Branch Free 6 MO-64 YRS Pneumococcal 20 2022-07-02 Completed [facility] of Conjugate, PCV20 00:00:00 [facility] dical (Prevnar 20) [place] Influenza Virus 2022-07-02 Completed [facility] of Vaccine Quad IM 3+ 00:00:00 [facility] Influenza Virus 2022-07-02 Completed [facility] of Vaccine Quad IM, 00:00:00 [facility] dical Preserv and ABX Branch Free 6 MO-64 YRS Pneumococcal 20 2022-07-02 Completed [facility] of Conjugate, PCV20 00:00:00 [facility] dical (Prevnar 20) [place] Influenza Virus 2022-07-02 Completed [facility] of Vaccine Quad IM 3+ 00:00:00 [facility] Influenza Virus 2022-07-02 Completed [facility] of Vaccine Quad IM, 00:00:00 [facility] dical Preserv and ABX Branch Free 6 MO-64 YRS (FLUCELVAX) Pneumococcal 20 2022-07-02 Completed [facility] Conjugate, PCV20 00:00:00 [place] [facility] (Prevnar 20) Branch Influenza Virus 2021-12-25 Completed [facility] Vaccine Quad IM, 00:00:00 [place] [facility] Preserv and ABX Branch Free 6 MO-64 YRS Influenza Virus 2021-12-25 Completed [facility] Vaccine Quad IM, 00:00:00 [place] [facility] Preserv and ABX Branch Free 6 MO-64 YRS Influenza Virus 2021-12-25 Completed [facility] of Vaccine Quad IM, 00:00:00 [place] [facility] Preserv and ABX Branch Free 6 MO-64 YRS Influenza Virus 2021-12-25 Completed [facility] of Vaccine Quad IM, 00:00:00 [place] [facility] Preserv and ABX Branch Free 6 MO-64 YRS Influenza Virus 2021-12-25 Completed [facility] Vaccine Quad IM, 00:00:00 [place] [facility] Preserv and ABX Branch Free 6 MO-64 YRS Influenza Virus 2021-12-25 Completed [facility] Vaccine Quad IM, 00:00:00 [place] [facility] Preserv and ABX Branch Free 6 MO-64 YRS Influenza Virus 2021-12-25 Completed [facility] Vaccine Quad IM, 00:00:00 [place] [facility] Preserv and ABX Branch Free 6 MO-64 YRS Influenza Virus 2021-12-25 Completed [facility] Vaccine Quad IM, 00:00:00 [place] [facility] Preserv and ABX Branch Free 6 MO-64 YRS Influenza Virus 2021-12-25 Completed [facility], 00:00:00 [place] [facility] Preserv [facility] ABX Branch Free 6 MO-64 YRS Influenza Virus 2021-12-25 Completed [facility], 00:00:00 [place] [facility] Pres[facility] ABX Branch Free 6 MO-64 YRS Influenza Virus 2021-12-25 Completed [facility], 00:00:00 [place] [facility] Preserv [facility] ABX Branch Free 6 MO-64 YRS Influenza Virus 2021-12-25 Completed [facility], 00:00:00 [place] [facility] Preserv and ABX Branch Free 6 MO-64 YRS Influenza Virus 2021-12-25 Completed [facility], 00:00:00 [place] [facility] Preserv [facility] ABX Branch Free 6 MO-64 YRS Influenza Virus 2021-12-25 Completed [facility], 00:00:00 [place] [facility] Preserv and ABX Branch Free 6 MO-64 YRS Influenza Virus 2021-12-25 Completed [facility], 00:00:00 [place] [facility] Preserv and ABX Branch Free 6 MO-64 YRS Influenza Virus 2021-12-25 Completed [facility], 00:00:00 [place] [facility] Preserv and ABX Branch Free 6 MO-64 YRS Influenza Virus 2021-12-25 Completed [facility], 00:00:00 [place] [facility] Preserv and ABX Branch Free 6 MO-64 YRS Influenza Virus 2021-12-25 Completed [facility], 00:00:00 [place] [facility] Preserv and ABX Branch Free 6 MO-64 YRS Influenza Virus 2021-12-25 Completed [facility], 00:00:00 [place] [facility] Preserv and ABX Branch Free 6 MO-64 YRS Influenza Virus 2021-12-25 Completed [facility], 00:00:00 [place] [facility] Preserv and ABX Branch Free 6 MO-64 YRS Influenza Virus 2021-12-25 Completed [facility], 00:00:00 [place] [facility] Preserv and ABX Branch Free 6 MO-64 YRS Influenza Virus 2021-12-25 Completed [facility], 00:00:00 [place] [facility] Preserv and ABX Branch Free 6 MO-64 YRS Influenza Virus 2021-12-25 Completed [facility], 00:00:00 [place] [facility] Preserv and ABX Branch Free 6 MO-64 YRS Influenza Virus 2021-12-25 Completed [facility], 00:00:00 [place] [facility] Preserv and ABX Branch Free 6 MO-64 YRS Influenza Virus 2021-12-25 Completed [facility], 00:00:00 [place] [facility] Preserv and ABX Branch Free 6 MO-64 YRS Influenza Virus 2021-12-25 Completed [facility], 00:00:00 [place] [facility] Preserv and ABX Branch Free 6 MO-64 YRS Influenza Virus 2021-12-25 Completed [facility], 00:00:00 [place] [facility] Preserv and ABX Branch Free 6 MO-64 YRS Influenza Virus 2021-12-25 Completed [facility], 00:00:00 [place] [facility] Preserv and ABX Branch Free 6 MO-64 YRS Influenza Virus 2021-12-25 Completed [facility], 00:00:00 [place] [facility] Preserv and ABX Branch Free 6 MO-64 YRS Influenza Virus 2021-12-25 Completed [facility], 00:00:00 [place] [facility] Preserv and ABX Branch Free 6 MO-64 YRS Influenza Virus 2021-12-25 Completed [facility], 00:00:00 [place] [facility] Preserv and ABX Branch Free 6 MO-64 YRS Influenza Virus 2021-12-25 Completed [facility], 00:00:00 [place] [facility] Pres[facility] and ABX Branch Free 6 MO-64 YRS Influenza Virus 2021-12-25 Completed [facility], 00:00:00 [place] [facility] Preserv and ABX Branch Free 6 MO-64 YRS Influenza Virus 2021-12-25 Completed [facility], 00:00:00 [place] [facility] Pres[facility] and ABX Branch Free 6 MO-64 YRS Influenza Virus 2021-12-25 Completed [facility], 00:00:00 [place] [facility] Preserv and ABX Branch Free 6 MO-64 YRS Influenza Virus 2021-12-25 Completed [facility], 00:00:00 [place] [facility] Preserv and ABX Branch Free 6 MO-64 YRS Influenza Virus 2021-12-25 Completed [facility], 00:00:00 [place] [facility] Preserv and ABX Branch Free 6 MO-64 YRS Influenza Virus 2021-12-25 Completed [facility], 00:00:00 [place] [facility] Preserv and ABX Branch Free 6 MO-64 YRS Influenza Virus 2021-12-25 Completed [facility], 00:00:00 [place] [facility] Preserv and ABX Branch Free 6 MO-64 YRS Influenza Virus 2021-12-25 Completed [facility], 00:00:00 [place] [facility] Preserv and ABX Branch Free 6 MO-64 YRS Influenza Virus 2021-12-25 Completed [facility], 00:00:00 [place] [facility] Preserv and ABX Branch Free 6 MO-64 YRS Influenza Virus 2021-12-25 Completed [facility], 00:00:00 [place] [facility] Preserv and ABX Branch Free 6 MO-64 YRS Influenza Virus 2021-12-25 Completed [facility], 00:00:00 [place] [facility] Preserv and ABX Branch Free 6 MO-64 YRS Influenza Virus 2021-12-25 Completed [facility], 00:00:00 [place] [facility] Preserv and ABX Branch Free 6 MO-64 YRS Influenza Virus 2021-12-25 Completed [facility], 00:00:00 [place] [facility] Preserv and ABX Branch Free 6 MO-64 YRS Influenza Virus 2021-12-25 Completed [facility], 00:00:00 [place] [facility] Preserv and ABX Branch Free 6 MO-64 YRS Influenza Virus 2021-12-25 Completed [facility], 00:00:00 [place] [facility] Preserv and ABX Branch Free 6 MO-64 YRS Influenza Virus 2021-12-25 Completed [facility], 00:00:00 [place] [facility] Preserv and ABX Branch Free 6 MO-64 YRS Influenza Virus 2021-12-25 Completed [facility], 00:00:00 [place] [facility] Preserv and ABX Branch Free 6 MO-64 YRS Influenza Virus 2021-12-25 Completed [facility], 00:00:00 [place] [facility] Preserv and ABX Branch Free 6 MO-64 YRS Influenza Virus 2021-12-25 Completed [facility], 00:00:00 [place] [facility] Preserv and ABX Branch Free 6 MO-64 YRS Influenza Virus 2021-12-25 Completed [facility], 00:00:00 [place] [facility] Preserv and ABX Branch Free 6 MO-64 YRS Influenza Virus 2021-12-25 Completed [facility], 00:00:00 [place] [facility] Preserv and ABX Branch Free 6 MO-64 YRS Influenza Virus 2021-12-25 Completed [facility], 00:00:00 [place] [facility] Preserv and ABX Branch Free 6 MO-64 YRS Influenza Virus 2021-12-25 Completed [facility], 00:00:00 [place] [facility] Preserv and ABX Branch Free 6 MO-64 YRS Influenza Virus 2021-12-25 Completed [facility], 00:00:00 [place] [facility] Preserv and ABX Branch Free 6 MO-64 YRS Influenza Virus 2021-12-25 Completed [facility], 00:00:00 [place] [facility] Preserv and ABX Branch Free 6 MO-64 YRS Influenza Virus 2021-12-25 Completed [facility], 00:00:00 [place] [facility] Preserv and ABX Branch Free 6 MO-64 YRS Influenza Virus 2021-12-25 Completed [facility], 00:00:00 [place] [facility] Preserv and ABX Branch Free 6 MO-64 YRS Influenza Virus 2021-12-25 Completed [facility], 00:00:00 [place] [facility] Pres[facility] and ABX [facility] Free 6 MO-64 YRS (FLUCELVAX) SARS-COV-2 COVID-19 2021-03-11 Completed [facility] 12+ YRS 00:00:00 [place] [facility] VACCINE [facility] SARS-COV-2 COVID-19 2021-03-11 Completed [facility] 12+ YRS 00:00:00 [place] [facility] VACCINE [facility] SARS-COV-2 COVID-19 2021-03-11 Completed [facility] 12+ YRS 00:00:00 [place] [facility] VACCINE [facility] SARS-COV-2 COVID-19 2021-03-11 Completed [facility] 12+ YRS 00:00:00 [place] [facility] VACCINE [facility] SARS-COV-2 COVID-19 2021-03-11 Completed [facility]ERNA 12+ YRS 00:00:00 [place] [facility] VACCINE [facility] SARS-COV-2 COVID-19 2021-03-11 Completed [facility] 12+ YRS 00:00:00 [place] [facility] VACCINE [facility] SARS-COV-2 COVID-19 2021-03-11 Completed [facility]ER[facility] 12+ YRS 00:00:00 [place] [facility] VACCINE [facility] SARS-COV-2 COVID-19 2021-03-11 Completed [facility]ERNA 12+ YRS 00:00:00 [place] [facility] VACCINE [facility] SARS-COV-2 COVID-19 2021-03-11 Completed [facility]ERNA 12+ YRS 00:00:00 [place] [facility] VACCINE [facility] SARS-COV-2 COVID-19 2021-03-11 Completed [facility]ERNA 12+ YRS 00:00:00 [place] [facility] VACCINE [facility] SARS-COV-2 COVID-19 2021-03-11 Completed [facility]ERNA 12+ YRS 00:00:00 [place] [facility] VACCINE [facility] SARS-COV-2 COVID-19 2021-03-11 Completed [facility]ERNA 12+ YRS 00:00:00 [place] [facility] VACCINE [facility] SARS-COV-2 COVID-19 2021-03-11 Completed [facility]ERNA 12+ YRS 00:00:00 [place] [facility] VACCINE [facility] SARS-COV-2 COVID-19 2021-03-11 Completed [facility]ERNA 12+ YRS 00:00:00 [place] [facility] VACCINE [facility] SARS-COV-2 COVID-19 2021-03-11 Completed [facility]ERNA 12+ YRS 00:00:00 [place] [facility] VACCINE [facility] SARS-COV-2 COVID-19 2021-03-11 Completed [facility]ERNA 12+ YRS 00:00:00 [place] [facility] VACCINE [facility] SARS-COV-2 COVID-19 2021-03-11 Completed [facility]ERNA 12+ YRS 00:00:00 [place] [facility] VACCINE [facility] SARS-COV-2 COVID-19 2021-03-11 Completed [facility]ERNA 12+ YRS 00:00:00 [place] [facility] VACCINE [facility] SARS-COV-2 COVID-19 2021-03-11 Completed [facility]ERNA 12+ YRS 00:00:00 [place] [facility] VACCINE [facility] SARS-COV-2 COVID-19 2021-03-11 Completed [facility]ERNA 12+ YRS 00:00:00 [place] [facility] VACCINE [facility] SARS-COV-2 COVID-19 2021-03-11 Completed [facility]ERNA 12+ YRS 00:00:00 [place] [facility] VACCINE [facility] SARS-COV-2 COVID-19 2021-03-11 Completed [facility] MODERNA 12+ YRS 00:00:00 [place] [facility] VACCINE [facility] SARS-COV-2 COVID-19 2021-03-11 Completed [facility] MODERNA 12+ YRS 00:00:00 [place] [facility] VACCINE [facility] SARS-COV-2 COVID-19 2021-03-11 Completed [facility] MODERNA 12+ YRS 00:00:00 [place] [facility] VACCINE [facility] SARS-COV-2 COVID-19 2021-03-11 Completed [facility] MODERNA 12+ YRS 00:00:00 [place] [facility] VACCINE [facility] SARS-COV-2 COVID-19 2021-03-11 Completed [facility] MODERNA 12+ YRS 00:00:00 [place] [facility] VACCINE [facility] SARS-COV-2 COVID-19 2021-03-11 Completed [facility] MODERNA 12+ YRS 00:00:00 [place] [facility] VACCINE [facility] SARS-COV-2 COVID-19 2021-03-11 Completed [facility] MODERNA 12+ YRS 00:00:00 [place] [facility] VACCINE [facility] SARS-COV-2 COVID-19 2021-03-11 Completed [facility] MODERNA 12+ YRS 00:00:00 [place] [facility] VACCINE [facility] SARS-COV-2 COVID-19 2021-03-11 Completed [facility] MODERNA 12+ YRS 00:00:00 [place] [facility] VACCINE [facility] SARS-COV-2 COVID-19 2021-03-11 Completed [facility] MODERNA 12+ YRS 00:00:00 [place] [facility] VACCINE [facility] SARS-COV-2 COVID-19 2021-03-11 Completed [facility] MODERNA 12+ YRS 00:00:00 [place] [facility] VACCINE [facility] SARS-COV-2 COVID-19 2021-03-11 Completed [facility] MODERNA 12+ YRS 00:00:00 [place] [facility] VACCINE [facility] SARS-COV-2 COVID-19 2021-03-11 Completed [facility] MODERNA 12+ YRS 00:00:00 [place] [facility] VACCINE [facility] SARS-COV-2 COVID-19 2021-03-11 Completed [facility] MODERNA 12+ YRS 00:00:00 [place] [facility] VACCINE [facility] SARS-COV-2 COVID-19 2021-03-11 Completed [facility] MODERNA 12+ YRS 00:00:00 [place] [facility] VACCINE [facility] SARS-COV-2 COVID-19 2021-03-11 Completed [facility] MODERNA 12+ YRS 00:00:00 [place] [facility] VACCINE [facility] SARS-COV-2 COVID-19 2021-03-11 Completed [facility]ERNA 12+ YRS 00:00:00 [place] [facility] VACCINE [facility] SARS-COV-2 COVID-19 2021-03-11 Completed [facility]ERNA 12+ YRS 00:00:00 [place] [facility] VACCINE [facility] SARS-COV-2 COVID-19 2021-03-11 Completed [facility]ERNA 12+ YRS 00:00:00 [place] [facility] VACCINE [facility] SARS-COV-2 COVID-19 2021-03-11 Completed [facility]ERNA 12+ YRS 00:00:00 [place] [facility] VACCINE [facility] SARS-COV-2 COVID-19 2021-03-11 Completed [facility]ERNA 12+ YRS 00:00:00 [place] [facility] VACCINE [facility] SARS-COV-2 COVID-19 2021-03-11 Completed [facility]ERNA 12+ YRS 00:00:00 [place] [facility] VACCINE [facility] SARS-COV-2 COVID-19 2021-03-11 Completed [facility]ERNA 12+ YRS 00:00:00 [place] [facility] VACCINE [facility] SARS-COV-2 COVID-19 2021-03-11 Completed [facility]ER[facility] 12+ YRS 00:00:00 [place] [facility] VACCINE [facility] SARS-COV-2 COVID-19 2021-03-11 Completed [facility]ERNA 12+ YRS 00:00:00 [place] [facility] VACCINE [facility] SARS-COV-2 COVID-19 2021-03-11 Completed [facility]ERNA 12+ YRS 00:00:00 [place] [facility] VACCINE [facility] SARS-COV-2 COVID-19 2021-03-11 Completed [facility]ERNA 12+ YRS 00:00:00 [place] [facility] VACCINE [facility] SARS-COV-2 COVID-19 2021-03-11 Completed [facility]ER[facility] 12+ YRS 00:00:00 [place] [facility] VACCINE [facility] SARS-COV-2 COVID-19 2021-03-11 Completed [facility]ERNA 12+ YRS 00:00:00 [place] [facility] VACCINE [facility] SARS-COV-2 COVID-19 2021-03-11 Completed [facility]ERNA 12+ YRS 00:00:00 [place] [facility] VACCINE [facility] SARS-COV-2 COVID-19 2021-03-11 Completed [facility]ERNA 12+ YRS 00:00:00 [place] [facility] VACCINE [facility] SARS-COV-2 COVID-19 2021-03-11 Completed [facility]ERNA 12+ YRS 00:00:00 [place] [facility] VACCINE [facility] SARS-COV-2 COVID-19 2021-03-11 Completed [facility] MODERNA 12+ YRS 00:00:00 [place] [facility] VACCINE [facility] SARS-COV-2 COVID-19 2021-03-11 Completed [facility]ER[facility] 12+ YRS 00:00:00 [place] [facility] VACCINE [facility] SARS-COV-2 COVID-19 2021-03-11 Completed [facility]ERNA 12+ YRS 00:00:00 [place] [facility] VACCINE [facility] SARS-COV-2 COVID-19 2021-03-11 Completed [facility]ERNA 12+ YRS 00:00:00 [place] [facility] VACCINE [facility] SARS-COV-2 COVID-19 2021-03-11 Completed [facility]ERNA 12+ YRS 00:00:00 [place] [facility] VACCINE [facility] SARS-COV-2 COVID-19 2021-03-11 Completed [facility]ERNA 12+ YRS 00:00:00 [place] [facility] VACCINE [facility] SARS-COV-2 COVID-19 2021-03-11 Completed [facility] MODERNA 12+ YRS 00:00:00 [place] [facility] VACCINE [facility] SARS-COV-2 COVID-19 2021-02-11 Completed [facility]ERNA 12+ YRS 00:00:00 [place] [facility] VACCINE [facility] SARS-COV-2 COVID-19 2021-02-11 Completed [facility]ERNA 12+ YRS 00:00:00 [place] [facility] VACCINE [facility] SARS-COV-2 COVID-19 2021-02-11 Completed [facility]ERNA 12+ YRS 00:00:00 [place] [facility] VACCINE [facility] SARS-COV-2 COVID-19 2021-02-11 Completed [facility] 12+ YRS 00:00:00 [place] [facility] VACCINE [facility] SARS-COV-2 COVID-19 2021-02-11 Completed [facility]ER[facility] 12+ YRS 00:00:00 [place] [facility] VACCINE [facility] SARS-COV-2 COVID-19 2021-02-11 Completed [facility]ERNA 12+ YRS 00:00:00 [place] [facility] VACCINE [facility] SARS-COV-2 COVID-19 2021-02-11 Completed [facility] MODERNA 12+ YRS 00:00:00 [place] [facility] VACCINE [facility] SARS-COV-2 COVID-19 2021-02-11 Completed [facility] MODERNA 12+ YRS 00:00:00 [place] [facility] VACCINE [facility] SARS-COV-2 COVID-19 2021-02-11 Completed [facility] MODERNA 12+ YRS 00:00:00 [place] [facility] VACCINE [facility] SARS-COV-2 COVID-19 2021-02-11 Completed [facility] MODERNA 12+ YRS 00:00:00 [place] [facility] VACCINE [facility] SARS-COV-2 COVID-19 2021-02-11 Completed [facility] MODERNA 12+ YRS 00:00:00 [place] [facility] VACCINE [facility] SARS-COV-2 COVID-19 2021-02-11 Completed [facility]ERNA 12+ YRS 00:00:00 [place] [facility] VACCINE [facility] SARS-COV-2 COVID-19 2021-02-11 Completed [facility]ERNA 12+ YRS 00:00:00 [place] [facility] VACCINE [facility] SARS-COV-2 COVID-19 2021-02-11 Completed [facility]ERNA 12+ YRS 00:00:00 [place] [facility] VACCINE [facility] SARS-COV-2 COVID-19 2021-02-11 Completed [facility]ER[facility] 12+ YRS 00:00:00 [place] [facility] VACCINE [facility] SARS-COV-2 COVID-19 2021-02-11 Completed [facility]ERNA 12+ YRS 00:00:00 [place] [facility] VACCINE [facility] SARS-COV-2 COVID-19 2021-02-11 Completed [facility]ER[facility] 12+ YRS 00:00:00 [place] [facility] VACCINE [facility] SARS-COV-2 COVID-19 2021-02-11 Completed [facility]ERNA 12+ YRS 00:00:00 [place] [facility] VACCINE [facility] SARS-COV-2 COVID-19 2021-02-11 Completed [facility]ERNA 12+ YRS 00:00:00 [place] [facility] VACCINE [facility] SARS-COV-2 COVID-19 2021-02-11 Completed [facility]ERNA 12+ YRS 00:00:00 [place] [facility] VACCINE [facility] SARS-COV-2 COVID-19 2021-02-11 Completed [facility]ER[facility] 12+ YRS 00:00:00 [place] [facility] VACCINE [facility] SARS-COV-2 COVID-19 2021-02-11 Completed [facility]ER[facility] 12+ YRS 00:00:00 [place] [facility] VACCINE [facility] SARS-COV-2 COVID-19 2021-02-11 Completed [facility]ER[facility] 12+ YRS 00:00:00 [place] [facility] VACCINE [facility] SARS-COV-2 COVID-19 2021-02-11 Completed [facility]ERNA 12+ YRS 00:00:00 [place] [facility] VACCINE [facility] SARS-COV-2 COVID-19 2021-02-11 Completed [facility]ERNA 12+ YRS 00:00:00 [place] [facility] VACCINE [facility] SARS-COV-2 COVID-19 2021-02-11 Completed [facility]ERNA 12+ YRS 00:00:00 [place] [facility] VACCINE [facility] SARS-COV-2 COVID-19 2021-02-11 Completed [facility]ERNA 12+ YRS 00:00:00 [place] [facility] VACCINE [facility] SARS-COV-2 COVID-19 2021-02-11 Completed [facility]ERNA 12+ YRS 00:00:00 [place] [facility] VACCINE [facility] SARS-COV-2 COVID-19 2021-02-11 Completed [facility] MODERNA 12+ YRS 00:00:00 [place] [facility] VACCINE [facility] SARS-COV-2 COVID-19 2021-02-11 Completed [facility]ERNA 12+ YRS 00:00:00 [place] [facility] VACCINE [facility] SARS-COV-2 COVID-19 2021-02-11 Completed [facility]ERNA 12+ YRS 00:00:00 [place] [facility] VACCINE [facility] SARS-COV-2 COVID-19 2021-02-11 Completed [facility] MODERNA 12+ YRS 00:00:00 [place] [facility] VACCINE [facility] SARS-COV-2 COVID-19 2021-02-11 Completed [facility] MODERNA 12+ YRS 00:00:00 [place] [facility] VACCINE [facility] SARS-COV-2 COVID-19 2021-02-11 Completed [facility] MODERNA 12+ YRS 00:00:00 [place] [facility] VACCINE [facility] SARS-COV-2 COVID-19 2021-02-11 Completed [facility] MODERNA 12+ YRS 00:00:00 [place] [facility] VACCINE [facility] SARS-COV-2 COVID-19 2021-02-11 Completed [facility]ERNA 12+ YRS 00:00:00 [place] [facility] VACCINE [facility] SARS-COV-2 COVID-19 2021-02-11 Completed [facility]ERNA 12+ YRS 00:00:00 [place] [facility] VACCINE [facility] SARS-COV-2 COVID-19 2021-02-11 Completed [facility]ER[facility] 12+ YRS 00:00:00 [place] [facility] VACCINE [facility] SARS-COV-2 COVID-19 2021-02-11 Completed [facility] MODERNA 12+ YRS 00:00:00 [place] [facility] VACCINE [facility] SARS-COV-2 COVID-19 2021-02-11 Completed [facility]ERNA 12+ YRS 00:00:00 [place] [facility] VACCINE [facility] SARS-COV-2 COVID-19 2021-02-11 Completed [facility] MODERNA 12+ YRS 00:00:00 [place] [facility] VACCINE [facility] SARS-COV-2 COVID-19 2021-02-11 Completed [facility] MODERNA 12+ YRS 00:00:00 [place] [facility] VACCINE [facility] SARS-COV-2 COVID-19 2021-02-11 Completed [facility] MODERNA 12+ YRS 00:00:00 [place] [facility] VACCINE [facility] SARS-COV-2 COVID-19 2021-02-11 Completed [facility]ERNA 12+ YRS 00:00:00 [place] [facility] VACCINE [facility] SARS-COV-2 COVID-19 2021-02-11 Completed [facility] MODERNA 12+ YRS 00:00:00 [place] [facility] VACCINE [facility] SARS-COV-2 COVID-19 2021-02-11 Completed [facility] MODERNA 12+ YRS 00:00:00 [place] [facility] VACCINE [facility] SARS-COV-2 COVID-19 2021-02-11 Completed [facility] MODERNA 12+ YRS 00:00:00 [place] [facility] VACCINE [facility] SARS-COV-2 COVID-19 2021-02-11 Completed [facility] MODERNA 12+ YRS 00:00:00 [place] [facility] VACCINE [facility] SARS-COV-2 COVID-19 2021-02-11 Completed [facility] of MODERNA 12+ YRS 00:00:00 [place] [facility] VACCINE [facility] SARS-COV-2 COVID-19 2021-02-11 Completed [facility] MODERNA 12+ YRS 00:00:00 [place] [facility] VACCINE [facility] SARS-COV-2 COVID-19 2021-02-11 Completed [facility] of MODERNA 12+ YRS 00:00:00 [place] [facility] VACCINE [facility] SARS-COV-2 COVID-19 2021-02-11 Completed [facility] MODERNA 12+ YRS 00:00:00 [place] [facility] VACCINE [facility] SARS-COV-2 COVID-19 2021-02-11 Completed [facility] MODERNA 12+ YRS 00:00:00 [place] [facility] VACCINE [facility] SARS-COV-2 COVID-19 2021-02-11 Completed [facility] MODERNA 12+ YRS 00:00:00 [place] [facility] VACCINE [facility] SARS-COV-2 COVID-19 2021-02-11 Completed [facility] of MODERNA 12+ YRS 00:00:00 [place] [facility] VACCINE [facility] SARS-COV-2 COVID-19 2021-02-11 Completed [facility] MODERNA 12+ YRS 00:00:00 [place] [facility] VACCINE [facility] SARS-COV-2 COVID-19 2021-02-11 Completed [facility] of MODERNA 12+ YRS 00:00:00 [place] [facility] VACCINE [facility] SARS-COV-2 COVID-19 2021-02-11 Completed [facility] of MODERNA 12+ YRS 00:00:00 [place] [facility] VACCINE [facility] SARS-COV-2 COVID-19 2021-02-11 Completed [facility] MODERNA 12+ YRS 00:00:00 [place] [facility] ical VACCINE Branch SARS-COV-2 COVID-19 2021-02-11 Completed [facility] of MODERNA 12+ YRS 00:00:00 [place] [facility] ical VACCINE Branch Influenza Virus 2020-10-03 Completed [facility] .5 mL 00:00:00 [place] [facility] MO [facility] Influenza Virus 2020-10-03 Completed [facility] .5 mL 00:00:00 [place] [facility] 6[facility] MO [facility] Influenza Virus 2020-10-03 Completed [facility] .5 mL 00:00:00 [place] [facility] 6[facility] MO [facility] Influenza Virus 2020-10-03 Completed [facility] .5 mL 00:00:00 [place] [facility] 6[facility] MO [facility] Influenza Virus 2020-10-03 Completed [facility] .5 mL 00:00:00 [place] [facility] 6[facility] MO [facility] Influenza Virus 2020-10-03 Completed [facility] .5 mL 00:00:00 [place] [facility] 6[facility] MO [facility] Influenza Virus 2020-10-03 Completed [facility] .5 mL 00:00:00 [place] [facility] 6[facility] MO [facility] Influenza Virus 2020-10-03 Completed [facility] .5 mL 00:00:00 [place] [facility] 6[facility] MO [facility] Influenza Virus 2020-10-03 Completed [facility] .5 mL 00:00:00 [place] [facility] 6[facility] MO [facility] Influenza Virus 2020-10-03 Completed [facility] .5 mL 00:00:00 [place] [facility] 6[facility] MO [facility] Influenza Virus 2020-10-03 Completed [facility] .5 mL 00:00:00 [place] [facility] 6[facility] MO [facility] Influenza Virus 2020-10-03 Completed [facility] .5 mL 00:00:00 [place] [facility] 6[facility] MO [facility] Influenza Virus 2020-10-03 Completed [facility] .5 mL 00:00:00 [place] [facility] 6[facility] MO [facility] Influenza Virus 2020-10-03 Completed [facility] .5 mL 00:00:00 [place] [facility] 6[facility] MO [facility] Influenza Virus 2020-10-03 Completed [facility] .5 mL 00:00:00 [place] [facility] 6[facility] MO [facility] Influenza Virus 2020-10-03 Completed [facility] .5 mL 00:00:00 [place] [facility] 6[facility] MO [facility] Influenza Virus 2020-10-03 Completed [facility] .5 mL 00:00:00 [place] [facility] 6+ MO [facility] Influenza Virus 2020-10-03 Completed [facility] .5 mL 00:00:00 [place] [facility] 6[facility] MO [facility] Influenza Virus 2020-10-03 Completed [facility] .5 mL 00:00:00 [place] [facility] 6[facility] MO [facility] Influenza Virus 2020-10-03 Completed [facility] .5 mL 00:00:00 [place] [facility] 6[facility] MO [facility] Influenza Virus 2020-10-03 Completed [facility] .5 mL 00:00:00 [place] [facility] 6[facility] MO [facility] Influenza Virus 2020-10-03 Completed [facility] .5 mL 00:00:00 [place] [facility] 6[facility] MO [facility] Influenza Virus 2020-10-03 Completed [facility] .5 mL 00:00:00 [place] [facility] 6[facility] MO [facility] Influenza Virus 2020-10-03 Completed [facility] .5 mL 00:00:00 [place] [facility] 6[facility] MO Branch Influenza Virus 2020-10-03 Completed [facility] .5 mL 00:00:00 [place] [facility] 6[facility] MO [facility] Influenza Virus 2020-10-03 Completed [facility] .5 mL 00:00:00 [place] [facility] 6[facility] MO [facility] Influenza Virus 2020-10-03 Completed [facility] .5 mL 00:00:00 [place] [facility] 6[facility] MO [facility] Influenza Virus 2020-10-03 Completed [facility] .5 mL 00:00:00 [place] [facility] 6[facility] MO Branch Influenza Virus 2020-10-03 Completed [facility] .5 mL 00:00:00 [place] [facility] 6[facility] MO [facility] Influenza Virus 2020-10-03 Completed [facility] .5 mL 00:00:00 [place] [facility] 6+ MO Branch Influenza Virus 2020-10-03 Completed [facility] .5 mL 00:00:00 [place] [facility] 6[facility] MO Branch Influenza Virus 2020-10-03 Completed [facility] .5 mL 00:00:00 [place] [facility] 6[facility] MO [facility] Influenza Virus 2020-10-03 Completed [facility] .5 mL 00:00:00 [place] [facility] 6+ MO [facility] Influenza Virus 2020-10-03 Completed [facility] .[facility] 00:00:00 [facility] Influenza Virus 2020-10-03 Completed [facility] .5 mL 00:00:00 [facility] Influenza Virus 2020-10-03 Completed [facility] .5 mL 00:00:00 [facility] Influenza Virus 2020-10-03 Completed [facility] .5 mL 00:00:00 [facility] Influenza Virus 2020-10-03 Completed [facility] .5 mL 00:00:00 [facility] Influenza Virus 2020-10-03 Completed [facility] .5 mL 00:00:00 [facility] Influenza Virus 2020-10-03 Completed [facility] .5 mL 00:00:00 [facility] Influenza Virus 2020-10-03 Completed [facility] .5 mL 00:00:00 [facility] Influenza Virus 2020-10-03 Completed [facility] .5 mL 00:00:00 [facility] Influenza Virus 2020-10-03 Completed [facility] .5 mL 00:00:00 [facility] Influenza Virus 2020-10-03 Completed [facility] .5 mL 00:00:00 [facility] Influenza Virus 2020-10-03 Completed [facility] .5 mL 00:00:00 [facility] Influenza Virus 2020-10-03 Completed [facility] .5 mL 00:00:00 [facility] Influenza Virus 2020-10-03 Completed [facility] .5 mL 00:00:00 [facility] Influenza Virus 2020-10-03 Completed [facility] .5 mL 00:00:00 [facility] Influenza Virus 2020-10-03 Completed [facility] .5 mL 00:00:00 [facility] Influenza Virus 2020-10-03 Completed [facility] .5 mL 00:00:00 [facility] Influenza Virus 2020-10-03 Completed [facility] .5 mL 00:00:00 [facility] Influenza Virus 2020-10-03 Completed [facility] .5 mL 00:00:00 [facility] Influenza Virus 2020-10-03 Completed [facility] .5 mL 00:00:00 [facility] Influenza Virus 2020-10-03 Completed [facility] .5 mL 00:00:00 [facility] Influenza Virus 2020-10-03 Completed [facility] .5 mL 00:00:00 [facility] Influenza Virus 2020-10-03 Completed [facility] .5 mL 00:00:00 [facility] Influenza Virus 2020-10-03 Completed [facility] .5 mL 00:00:00 [facility] Influenza Virus 2020-10-03 Completed [facility] .5 mL 00:00:00 [facility] Influenza Virus 2020-10-03 Completed [facility] .5 mL 00:00:00 [facility] Influenza Virus 2020-10-03 Completed [facility] .5 mL 00:00:00 [facility] (FLUZONE/FLULAVAL/F LUARIX) Influenza Virus 2019-08-24 Completed [facility] .5 mL 00:00:00 [facility] Influenza Virus 2019-08-24 Completed [facility] .5 mL 00:00:00 [facility] Influenza Virus 2019-08-24 Completed [facility] .5 mL 00:00:00 [facility] Influenza Virus 2019-08-24 Completed [facility] .5 mL 00:00:00 [facility] Influenza Virus 2019-08-24 Completed [facility] .5 mL 00:00:00 [facility] Influenza Virus 2019-08-24 Completed [facility] .5 mL 00:00:00 [facility] Influenza Virus 2019-08-24 Completed [facility] .5 mL 00:00:00 [facility] Influenza Virus 2019-08-24 Completed [facility] .5 mL 00:00:00 [facility] Influenza Virus 2019-08-24 Completed [facility] .5 mL 00:00:00 [facility] Influenza Virus 2019-08-24 Completed [facility] .5 mL 00:00:00 [facility] Influenza Virus 2019-08-24 Completed [facility] .5 mL 00:00:00 [facility] Influenza Virus 2019-08-24 Completed [facility] .5 mL 00:00:00 [facility] Influenza Virus 2019-08-24 Completed [facility] .5 mL 00:00:00 [facility] Influenza Virus 2019-08-24 Completed [facility] .5 mL 00:00:00 [facility] Influenza Virus 2019-08-24 Completed [facility] .5 mL 00:00:00 [facility] Influenza Virus 2019-08-24 Completed [facility] .5 mL 00:00:00 [facility] Influenza Virus 2019-08-24 Completed [facility] .5 mL 00:00:00 [facility] Influenza Virus 2019-08-24 Completed [facility] .5 mL 00:00:00 [facility] Influenza Virus 2019-08-24 Completed [facility] .5 mL 00:00:00 [facility] Influenza Virus 2019-08-24 Completed [facility] .5 mL 00:00:00 [facility] Influenza Virus 2019-08-24 Completed [facility] .5 mL 00:00:00 [facility] Influenza Virus 2019-08-24 Completed [facility] .5 mL 00:00:00 [facility] Influenza Virus 2019-08-24 Completed [facility] .5 mL 00:00:00 [facility] Influenza Virus 2019-08-24 Completed [facility] .5 mL 00:00:00 [facility] Influenza Virus 2019-08-24 Completed [facility] .5 mL 00:00:00 [facility] Influenza Virus 2019-08-24 Completed [facility] .5 mL 00:00:00 [facility] Influenza Virus 2019-08-24 Completed [facility] .5 mL 00:00:00 [facility] Influenza Virus 2019-08-24 Completed [facility] .5 mL 00:00:00 [facility] Influenza Virus 2019-08-24 Completed [facility] .5 mL 00:00:00 [facility] Influenza Virus 2019-08-24 Completed [facility] .5 mL 00:00:00 [facility] Influenza Virus 2019-08-24 Completed [facility] .5 mL 00:00:00 [facility] Influenza Virus 2019-08-24 Completed [facility] .5 mL 00:00:00 [facility] Influenza Virus 2019-08-24 Completed [facility] .5 mL 00:00:00 [facility] Influenza Virus 2019-08-24 Completed [facility] .5 mL 00:00:00 [facility] Influenza Virus 2019-08-24 Completed [facility] .5 mL 00:00:00 [facility] Influenza Virus 2019-08-24 Completed [facility] .5 mL 00:00:00 [facility] Influenza Virus 2019-08-24 Completed [facility] .5 mL 00:00:00 [facility] Influenza Virus 2019-08-24 Completed [facility] .5 mL 00:00:00 [facility] Influenza Virus 2019-08-24 Completed [facility] .5 mL 00:00:00 [facility] Influenza Virus 2019-08-24 Completed [facility] .5 mL 00:00:00 [facility] Influenza Virus 2019-08-24 Completed [facility] .5 mL 00:00:00 [facility] Influenza Virus 2019-08-24 Completed [facility] .5 mL 00:00:00 [facility] Influenza Virus 2019-08-24 Completed [facility] .5 mL 00:00:00 [facility] Influenza Virus 2019-08-24 Completed [facility] .5 mL 00:00:00 [facility] Influenza Virus 2019-08-24 Completed [facility] .5 mL 00:00:00 [facility] Influenza Virus 2019-08-24 Completed [facility] .5 mL 00:00:00 [facility] Influenza Virus 2019-08-24 Completed [facility] .5 mL 00:00:00 [facility] Influenza Virus 2019-08-24 Completed [facility] .5 mL 00:00:00 [facility] Influenza Virus 2019-08-24 Completed [facility] .5 mL 00:00:00 [facility] Influenza Virus 2019-08-24 Completed [facility] .5 mL 00:00:00 [facility] Influenza Virus 2019-08-24 Completed [facility] .5 mL 00:00:00 [facility] Influenza Virus 2019-08-24 Completed [facility] .5 mL 00:00:00 [facility] Influenza Virus 2019-08-24 Completed [facility] .5 mL 00:00:00 [facility] Influenza Virus 2019-08-24 Completed [facility] .5 mL 00:00:00 [facility] Influenza Virus 2019-08-24 Completed [facility] .5 mL 00:00:00 [facility] Influenza Virus 2019-08-24 Completed [facility] .5 mL 00:00:00 [facility] Influenza Virus 2019-08-24 Completed [facility] .5 mL 00:00:00 [facility] Influenza Virus 2019-08-24 Completed [facility] .5 mL 00:00:00 [facility] Influenza Virus 2019-08-24 Completed [facility] .5 mL 00:00:00 [facility] Influenza Virus 2019-08-24 Completed [facility] .5 mL 00:00:00 [facility] (FLUZONE/FLULAVAL/F LUARIX) Influenza Virus 2018-11-17 Completed [facility] .5 mL 00:00:00 [facility] Influenza Virus 2018-11-17 Completed [facility] .5 mL 00:00:00 [facility] Influenza Virus 2018-11-17 Completed [facility] .5 mL 00:00:00 [facility] Influenza Virus 2018-11-17 Completed [facility] .5 mL 00:00:00 [facility] Influenza Virus 2018-11-17 Completed [facility] .5 mL 00:00:00 [facility] Influenza Virus 2018-11-17 Completed [facility] .5 mL 00:00:00 [facility] Influenza Virus 2018-11-17 Completed [facility] .5 mL 00:00:00 [facility] Influenza Virus 2018-11-17 Completed [facility] .5 mL 00:00:00 [facility] Influenza Virus 2018-11-17 Completed [facility] .5 mL 00:00:00 [facility] Influenza Virus 2018-11-17 Completed [facility] .5 mL 00:00:00 [facility] Influenza Virus 2018-11-17 Completed [facility] .5 mL 00:00:00 [facility] Influenza Virus 2018-11-17 Completed [facility] .5 mL 00:00:00 [facility] Influenza Virus 2018-11-17 Completed [facility] .5 mL 00:00:00 [facility] Influenza Virus 2018-11-17 Completed [facility] .5 mL 00:00:00 [facility] Influenza Virus 2018-11-17 Completed [facility] .5 mL 00:00:00 [facility] Influenza Virus 2018-11-17 Completed [facility] .5 mL 00:00:00 [facility] Influenza Virus 2018-11-17 Completed [facility] .5 mL 00:00:00 [facility] Influenza Virus 2018-11-17 Completed [facility] .5 mL 00:00:00 [facility] Influenza Virus 2018-11-17 Completed [facility] .5 mL 00:00:00 [facility] Influenza Virus 2018-11-17 Completed [facility] .5 mL 00:00:00 [facility] Influenza Virus 2018-11-17 Completed [facility] .5 mL 00:00:00 [facility] Influenza Virus 2018-11-17 Completed [facility] .5 mL 00:00:00 [facility] Influenza Virus 2018-11-17 Completed [facility] .5 mL 00:00:00 [facility] Influenza Virus 2018-11-17 Completed [facility] .5 mL 00:00:00 [facility] Influenza Virus 2018-11-17 Completed [facility] .5 mL 00:00:00 [facility] Influenza Virus 2018-11-17 Completed [facility] .5 mL 00:00:00 [facility] Influenza Virus 2018-11-17 Completed [facility] .5 mL 00:00:00 [facility] Influenza Virus 2018-11-17 Completed [facility] .5 mL 00:00:00 [facility] Influenza Virus 2018-11-17 Completed [facility] .5 mL 00:00:00 [facility] Influenza Virus 2018-11-17 Completed [facility] .5 mL 00:00:00 [facility] Influenza Virus 2018-11-17 Completed [facility] .5 mL 00:00:00 [facility] Influenza Virus 2018-11-17 Completed [facility] .5 mL 00:00:00 [facility] Influenza Virus 2018-11-17 Completed [facility] .5 mL 00:00:00 [facility] Influenza Virus 2018-11-17 Completed [facility] .5 mL 00:00:00 [facility] Influenza Virus 2018-11-17 Completed [facility] .5 mL 00:00:00 [facility] Influenza Virus 2018-11-17 Completed [facility] .5 mL 00:00:00 [facility] Influenza Virus 2018-11-17 Completed [facility] .5 mL 00:00:00 [facility] Influenza Virus 2018-11-17 Completed [facility] .5 mL 00:00:00 [facility] Influenza Virus 2018-11-17 Completed [facility] .5 mL 00:00:00 [facility] Influenza Virus 2018-11-17 Completed [facility] .5 mL 00:00:00 [facility] Influenza Virus 2018-11-17 Completed [facility] .5 mL 00:00:00 [facility] Influenza Virus 2018-11-17 Completed [facility] .5 mL 00:00:00 [facility] Influenza Virus 2018-11-17 Completed [facility] .5 mL 00:00:00 [facility] Influenza Virus 2018-11-17 Completed [facility] .5 mL 00:00:00 [facility] Influenza Virus 2018-11-17 Completed [facility] .5 mL 00:00:00 [facility] Influenza Virus 2018-11-17 Completed [facility] .5 mL 00:00:00 [facility] Influenza Virus 2018-11-17 Completed [facility] .5 mL 00:00:00 [facility] Influenza Virus 2018-11-17 Completed [facility] .5 mL 00:00:00 [facility] Influenza Virus 2018-11-17 Completed [facility] .5 mL 00:00:00 [facility] Influenza Virus 2018-11-17 Completed [facility] .5 mL 00:00:00 [facility] 6+ MO [facility] Influenza Virus 2018-11-17 Completed [facility] .5 mL 00:00:00 [facility] IM 6+ MO Branch Influenza Virus 2018-11-17 Completed [facility] .5 mL 00:00:00 [facility] IM 6+ MO Branch Influenza Virus 2018-11-17 Completed [facility] .5 mL 00:00:00 [facility] IM 6+ MO Branch Influenza Virus 2018-11-17 Completed [facility]ine [facility] .5 mL 00:00:00 [facility] 6+ MO Branch Influenza Virus 2018-11-17 Completed [facility] Vaccine Quad .5 mL 00:00:00 [facility] Influenza Virus 2018-11-17 Completed [facility] .5 mL 00:00:00 [facility] Influenza Virus 2018-11-17 Completed [facility] .5 mL 00:00:00 [facility] Influenza Virus 2018-11-17 Completed [facility] .5 mL 00:00:00 [facility] Influenza Virus 2018-11-17 Completed [facility] .5 mL 00:00:00 [facility] Influenza Virus 2018-11-17 Completed [facility] .5 mL 00:00:00 [facility] (FLUZONE/FLULAVAL/F LUARIX) Influenza Virus 2017-11-11 Completed [facility] IM 3+ 00:00:00 [facility] Influenza Virus 2017-11-11 Completed [facility] IM 3+ 00:00:00 [facility] Influenza Virus 2017-11-11 Completed [facility] IM 3+ 00:00:00 [facility] Influenza Virus 2017-11-11 Completed [facility] IM 3+ 00:00:00 [facility] Influenza Virus 2017-11-11 Completed [facility] IM 3+ 00:00:00 [facility] Influenza Virus 2017-11-11 Completed [facility] IM 3+ 00:00:00 [facility] Influenza Virus 2017-11-11 Completed [facility] IM 3+ 00:00:00 [facility] Influenza Virus 2017-11-11 Completed [facility] Vacc[facility] IM 3+ 00:00:00 [facility] Influenza Virus 2017-11-11 Completed [facility] IM 3+ 00:00:00 [facility] Influenza Virus 2017-11-11 Completed [facility] IM 3+ 00:00:00 [facility] Influenza Virus 2017-11-11 Completed [facility] Vacc[facility] IM 3+ 00:00:00 [facility] Influenza Virus 2017-11-11 Completed [facility] IM 3+ 00:00:00 [facility] Influenza Virus 2017-11-11 Completed [facility] IM 3+ 00:00:00 [facility] Influenza Virus 2017-11-11 Completed [facility] IM 3+ 00:00:00 [facility] Influenza Virus 2017-11-11 Completed [facility] IM 3+ 00:00:00 [facility] Influenza Virus 2017-11-11 Completed [facility] IM 3+ 00:00:00 [facility] Influenza Virus 2017-11-11 Completed [facility] IM 3+ 00:00:00 [facility] Influenza Virus 2017-11-11 Completed [facility] IM 3+ 00:00:00 [facility] Influenza Virus 2017-11-11 Completed [facility] IM 3+ 00:00:00 [facility] Influenza Virus 2017-11-11 Completed [facility] IM 3+ 00:00:00 [facility] Influenza Virus 2017-11-11 Completed [facility] IM 3+ 00:00:00 [facility] Influenza Virus 2017-11-11 Completed [facility] IM 3+ 00:00:00 [facility] Influenza Virus 2017-11-11 Completed [facility] IM 3+ 00:00:00 [facility] Influenza Virus 2017-11-11 Completed [facility] IM 3+ 00:00:00 [facility] Influenza Virus 2017-11-11 Completed [facility] IM 3+ 00:00:00 [facility] Influenza Virus 2017-11-11 Completed [facility] IM 3+ 00:00:00 [facility] Influenza Virus 2017-11-11 Completed [facility] IM 3+ 00:00:00 [facility] Influenza Virus 2017-11-11 Completed [facility] IM 3+ 00:00:00 [facility] Influenza Virus 2017-11-11 Completed [facility] IM 3+ 00:00:00 [facility] Influenza Virus 2017-11-11 Completed [facility] IM 3+ 00:00:00 [facility] Influenza Virus 2017-11-11 Completed [facility] IM 3+ 00:00:00 [facility] Influenza Virus 2017-11-11 Completed [facility] IM 3+ 00:00:00 [facility] Influenza Virus 2017-11-11 Completed [facility] IM 3+ 00:00:00 [facility] Influenza Virus 2017-11-11 Completed [facility] IM 3+ 00:00:00 [facility] Influenza Virus 2017-11-11 Completed [facility] IM 3+ 00:00:00 [facility] Influenza Virus 2017-11-11 Completed [facility] IM 3+ 00:00:00 [facility] Influenza Virus 2017-11-11 Completed [facility] IM 3+ 00:00:00 [facility] Influenza Virus 2017-11-11 Completed [facility] IM 3+ 00:00:00 [facility] Influenza Virus 2017-11-11 Completed [facility] IM 3+ 00:00:00 [facility] Influenza Virus 2017-11-11 Completed [facility] IM 3+ 00:00:00 [facility] Influenza Virus 2017-11-11 Completed [facility] IM 3+ 00:00:00 [facility] Influenza Virus 2017-11-11 Completed [facility] IM 3+ 00:00:00 [facility] Influenza Virus 2017-11-11 Completed [facility] IM 3+ 00:00:00 [facility] Influenza Virus 2017-11-11 Completed [facility] IM 3+ 00:00:00 [facility] Influenza Virus 2017-11-11 Completed [facility] IM 3+ 00:00:00 [facility] Influenza Virus 2017-11-11 Completed [facility] IM 3+ 00:00:00 [facility] Influenza Virus 2017-11-11 Completed [facility] IM 3+ 00:00:00 [facility] Influenza Virus 2017-11-11 Completed [facility] IM 3+ 00:00:00 [facility] Influenza Virus 2017-11-11 Completed [facility] IM 3+ 00:00:00 [facility] Influenza Virus 2017-11-11 Completed [facility] IM 3+ 00:00:00 [facility] Influenza Virus 2017-11-11 Completed [facility] IM 3+ 00:00:00 [facility] Influenza Virus 2017-11-11 Completed [facility] IM 3+ 00:00:00 [facility] Influenza Virus 2017-11-11 Completed [facility] IM 3+ 00:00:00 [facility] Influenza Virus 2017-11-11 Completed [facility] IM 3+ 00:00:00 [facility] Influenza Virus 2017-11-11 Completed [facility] IM 3+ 00:00:00 [facility] Influenza Virus 2017-11-11 Completed [facility] IM 3+ 00:00:00 [facility] Influenza Virus 2017-11-11 Completed [facility] IM 3+ 00:00:00 [facility] Influenza Virus 2017-11-11 Completed [facility] IM 3+ 00:00:00 [facility] Influenza Virus 2017-11-11 Completed [facility] IM 3+ 00:00:00 [facility] Influenza Virus 2017-11-11 Completed [facility] IM 3+ 00:00:00 [facility] Pneumococcal 2017-04-05 Completed [facility] f Polysaccharide, 00:00:00 [facility] PPSV23 (PNEUMOVAX) [facility] TDAP (ADACEL) 2017-04-05 Completed [facility] of VACCINE 00:00:00 [facility] Pneumococcal 2017-04-05 Completed [facility] o f Polysaccharide, 00:00:00 [facility] PPSV23 (PNEUMOVAX) Branch TDAP (ADACEL) 2017-04-05 Completed [facility] of VACCINE 00:00:00 [facility] Pneumococcal 2017-04-05 Completed [facility] o f Polysaccharide, 00:00:00 [facility] ical PPSV23 (PNEUMOVAX) Branch TDAP (ADACEL) 2017-04-05 Completed [facility] of VACCINE 00:00:00 [facility] Pneumococcal 2017-04-05 Completed [facility] o f Polysaccharide, 00:00:00 [facility] ical PPSV23 (PNEUMOVAX) Branch TDAP (ADACEL) 2017-04-05 Completed [facility] of VACCINE 00:00:00 [facility] Pneumococcal 2017-04-05 Completed [facility] o f Polysaccharide, 00:00:00 [place] [facility] PPSV23 (PNEUMOVAX) Branch TDAP (ADACEL) 2017-04-05 Completed [facility] of VACCINE 00:00:00 [facility] Pneumococcal 2017-04-05 Completed [facility] o f Polysaccharide, 00:00:00 [place] [facility] PPSV23 (PNEUMOVAX) Branch TDAP (ADACEL) 2017-04-05 Completed [facility] of VACCINE 00:00:00 [facility] Pneumococcal 2017-04-05 Completed [facility] o f Polysaccharide, 00:00:00 [place] [facility] PPSV23 (PNEUMOVAX) Branch TDAP (ADACEL) 2017-04-05 Completed [facility] of VACCINE 00:00:00 [facility] Pneumococcal 2017-04-05 Completed [facility] o f Polysaccharide, 00:00:00 [place] [facility] PPSV23 (PNEUMOVAX) Branch TDAP (ADACEL) 2017-04-05 Completed [facility] of VACCINE 00:00:00 [facility] Pneumococcal 2017-04-05 Completed [facility] o f Polysaccharide, 00:00:00 [place] [facility] PPSV23 (PNEUMOVAX) Branch TDAP (ADACEL) 2017-04-05 Completed [facility] of VACCINE 00:00:00 [facility] Pneumococcal 2017-04-05 Completed [facility] o f Polysaccharide, 00:00:00 [place] [facility] PPSV23 (PNEUMOVAX) Branch TDAP (ADACEL) 2017-04-05 Completed [facility] of VACCINE 00:00:00 [facility] Pneumococcal 2017-04-05 Completed [facility] o f Polysaccharide, 00:00:00 [place] [facility] PPSV23 (PNEUMOVAX) Branch TDAP (ADACEL) 2017-04-05 Completed [facility] of VACCINE 00:00:00 [facility] Pneumococcal 2017-04-05 Completed [facility] o f Polysaccharide, 00:00:00 [place] [facility] PPSV23 (PNEUMOVAX) Branch TDAP (ADACEL) 2017-04-05 Completed [facility] of VACCINE 00:00:00 [facility] Pneumococcal 2017-04-05 Completed [facility] o f Polysaccharide, 00:00:00 [place] [facility] PPSV23 (PNEUMOVAX) Branch TDAP (ADACEL) 2017-04-05 Completed [facility] of VACCINE 00:00:00 [facility] Pneumococcal 2017-04-05 Completed [facility] o f Polysaccharide, 00:00:00 [place] [facility] PPSV23 (PNEUMOVAX) Branch TDAP (ADACEL) 2017-04-05 Completed [facility] of VACCINE 00:00:00 [facility] Pneumococcal 2017-04-05 Completed [facility] o f Polysaccharide, 00:00:00 [place] [facility] PPSV23 (PNEUMOVAX) Branch TDAP (ADACEL) 2017-04-05 Completed [facility] of VACCINE 00:00:00 [facility] Pneumococcal 2017-04-05 Completed [facility] o f Polysaccharide, 00:00:00 [place] [facility] PPSV23 (PNEUMOVAX) Branch TDAP (ADACEL) 2017-04-05 Completed [facility] of VACCINE 00:00:00 [facility] Pneumococcal 2017-04-05 Completed [facility] o f Polysaccharide, 00:00:00 [place] [facility] PPSV23 (PNEUMOVAX) Branch TDAP (ADACEL) 2017-04-05 Completed [facility] of VACCINE 00:00:00 [facility] Pneumococcal 2017-04-05 Completed [facility] o f Polysaccharide, 00:00:00 [place] [facility] PPSV23 (PNEUMOVAX) Branch TDAP (ADACEL) 2017-04-05 Completed [facility] of VACCINE 00:00:00 [facility] Pneumococcal 2017-04-05 Completed [facility] o f Polysaccharide, 00:00:00 [place] [facility] PPSV23 (PNEUMOVAX) Branch TDAP (ADACEL) 2017-04-05 Completed [facility] of VACCINE 00:00:00 [facility] Pneumococcal 2017-04-05 Completed [facility] o f Polysaccharide, 00:00:00 [place] [facility] PPSV23 (PNEUMOVAX) Branch TDAP (ADACEL) 2017-04-05 Completed [facility] of VACCINE 00:00:00 [facility] Pneumococcal 2017-04-05 Completed [facility] o f Polysaccharide, 00:00:00 [place] [facility] PPSV23 (PNEUMOVAX) Branch TDAP (ADACEL) 2017-04-05 Completed [facility] of VACCINE 00:00:00 [facility] Pneumococcal 2017-04-05 Completed [facility] o f Polysaccharide, 00:00:00 [place] [facility] PPSV23 (PNEUMOVAX) Branch TDAP (ADACEL) 2017-04-05 Completed [facility] of VACCINE 00:00:00 [facility] Pneumococcal 2017-04-05 Completed [facility] o f Polysaccharide, 00:00:00 [place] [facility] PPSV23 (PNEUMOVAX) Branch TDAP (ADACEL) 2017-04-05 Completed [facility] of VACCINE 00:00:00 [facility] Pneumococcal 2017-04-05 Completed [facility] o f Polysaccharide, 00:00:00 [place] [facility] PPSV23 (PNEUMOVAX) Branch TDAP (ADACEL) 2017-04-05 Completed [facility] of VACCINE 00:00:00 [facility] Pneumococcal 2017-04-05 Completed [facility] o f Polysaccharide, 00:00:00 [place] [facility] PPSV23 (PNEUMOVAX) Branch TDAP (ADACEL) 2017-04-05 Completed [facility] of VACCINE 00:00:00 [facility] Pneumococcal 2017-04-05 Completed [facility] o f Polysaccharide, 00:00:00 [place] [facility] PPSV23 (PNEUMOVAX) Branch TDAP (ADACEL) 2017-04-05 Completed [facility] of VACCINE 00:00:00 [facility] Pneumococcal 2017-04-05 Completed [facility] o f Polysaccharide, 00:00:00 [place] [facility] PPSV23 (PNEUMOVAX) Branch TDAP (ADACEL) 2017-04-05 Completed [facility] of VACCINE 00:00:00 [facility] Pneumococcal 2017-04-05 Completed [facility] o f Polysaccharide, 00:00:00 [place] [facility] PPSV23 (PNEUMOVAX) Branch TDAP (ADACEL) 2017-04-05 Completed [facility] of VACCINE 00:00:00 [facility] Pneumococcal 2017-04-05 Completed [facility] o f Polysaccharide, 00:00:00 [place] [facility] PPSV23 (PNEUMOVAX) Branch TDAP (ADACEL) 2017-04-05 Completed [facility] of VACCINE 00:00:00 [facility] Pneumococcal 2017-04-05 Completed [facility] o f Polysaccharide, 00:00:00 [place] [facility] PPSV23 (PNEUMOVAX) Branch TDAP (ADACEL) 2017-04-05 Completed [facility] of VACCINE 00:00:00 [facility] Pneumococcal 2017-04-05 Completed [facility] o f Polysaccharide, 00:00:00 [place] [facility] PPSV23 (PNEUMOVAX) Branch TDAP (ADACEL) 2017-04-05 Completed [facility] of VACCINE 00:00:00 [facility] Pneumococcal 2017-04-05 Completed [facility] o f Polysaccharide, 00:00:00 [place] [facility] PPSV23 (PNEUMOVAX) Branch TDAP (ADACEL) 2017-04-05 Completed [facility] of VACCINE 00:00:00 [facility] Pneumococcal 2017-04-05 Completed [facility] o f Polysaccharide, 00:00:00 [place] [facility] PPSV23 (PNEUMOVAX) Branch TDAP (ADACEL) 2017-04-05 Completed [facility] of VACCINE 00:00:00 [facility] Pneumococcal 2017-04-05 Completed [facility] o f Polysaccharide, 00:00:00 [place] [facility] PPSV23 (PNEUMOVAX) Branch TDAP (ADACEL) 2017-04-05 Completed [facility] of VACCINE 00:00:00 [facility] Pneumococcal 2017-04-05 Completed [facility] o f Polysaccharide, 00:00:00 [place] [facility] PPSV23 (PNEUMOVAX) Branch TDAP (ADACEL) 2017-04-05 Completed [facility] of VACCINE 00:00:00 [facility] Pneumococcal 2017-04-05 Completed [facility] o f Polysaccharide, 00:00:00 [place] [facility] PPSV23 (PNEUMOVAX) Branch TDAP (ADACEL) 2017-04-05 Completed [facility] of VACCINE 00:00:00 [facility] Pneumococcal 2017-04-05 Completed [facility] o f Polysaccharide, 00:00:00 [place] [facility] PPSV23 (PNEUMOVAX) Branch TDAP (ADACEL) 2017-04-05 Completed [facility] of VACCINE 00:00:00 [facility] Pneumococcal 2017-04-05 Completed [facility] o f Polysaccharide, 00:00:00 [place] [facility] PPSV23 (PNEUMOVAX) Branch TDAP (ADACEL) 2017-04-05 Completed [facility] of VACCINE 00:00:00 [facility] Pneumococcal 2017-04-05 Completed [facility] o f Polysaccharide, 00:00:00 [place] [facility] PPSV23 (PNEUMOVAX) Branch TDAP (ADACEL) 2017-04-05 Completed [facility] of VACCINE 00:00:00 [facility] Pneumococcal 2017-04-05 Completed [facility] o f Polysaccharide, 00:00:00 [place] [facility] PPSV23 (PNEUMOVAX) Branch TDAP (ADACEL) 2017-04-05 Completed [facility] of VACCINE 00:00:00 [facility] Pneumococcal 2017-04-05 Completed [facility] o f Polysaccharide, 00:00:00 [place] [facility] PPSV23 (PNEUMOVAX) Branch TDAP (ADACEL) 2017-04-05 Completed [facility] of VACCINE 00:00:00 [facility] Pneumococcal 2017-04-05 Completed [facility] o f Polysaccharide, 00:00:00 [place] [facility] PPSV23 (PNEUMOVAX) Branch TDAP (ADACEL) 2017-04-05 Completed [facility] of VACCINE 00:00:00 [facility] Pneumococcal 2017-04-05 Completed [facility] o f Polysaccharide, 00:00:00 [place] [facility] PPSV23 (PNEUMOVAX) Branch TDAP (ADACEL) 2017-04-05 Completed [facility] of VACCINE 00:00:00 [facility] Pneumococcal 2017-04-05 Completed [facility] o f Polysaccharide, 00:00:00 [place] [facility] PPSV23 (PNEUMOVAX) Branch TDAP (ADACEL) 2017-04-05 Completed [facility] of VACCINE 00:00:00 [facility] Pneumococcal 2017-04-05 Completed [facility] o f Polysaccharide, 00:00:00 [place] [facility] PPSV23 (PNEUMOVAX) Branch TDAP (ADACEL) 2017-04-05 Completed [facility] of VACCINE 00:00:00 [facility] Pneumococcal 2017-04-05 Completed [facility] o f Polysaccharide, 00:00:00 [place] [facility] PPSV23 (PNEUMOVAX) Branch TDAP (ADACEL) 2017-04-05 Completed [facility] of VACCINE 00:00:00 [facility] Pneumococcal 2017-04-05 Completed [facility] o f Polysaccharide, 00:00:00 [place] [facility] PPSV23 (PNEUMOVAX) Branch TDAP (ADACEL) 2017-04-05 Completed [facility] of VACCINE 00:00:00 [facility] Pneumococcal 2017-04-05 Completed [facility] o f Polysaccharide, 00:00:00 [place] [facility] PPSV23 (PNEUMOVAX) Branch TDAP (ADACEL) 2017-04-05 Completed [facility] of VACCINE 00:00:00 [facility] Pneumococcal 2017-04-05 Completed [facility] o f Polysaccharide, 00:00:00 [place] [facility] PPSV23 (PNEUMOVAX) Branch TDAP (ADACEL) 2017-04-05 Completed [facility] of VACCINE 00:00:00 [facility] Pneumococcal 2017-04-05 Completed [facility] o f Polysaccharide, 00:00:00 [place] [facility] PPSV23 (PNEUMOVAX) Branch TDAP (ADACEL) 2017-04-05 Completed [facility] of VACCINE 00:00:00 [facility] Pneumococcal 2017-04-05 Completed [facility] o f Polysaccharide, 00:00:00 [place] [facility] PPSV23 (PNEUMOVAX) Branch TDAP (ADACEL) 2017-04-05 Completed [facility] of VACCINE 00:00:00 [facility] Pneumococcal 2017-04-05 Completed [facility] o f Polysaccharide, 00:00:00 [place] [facility] PPSV23 (PNEUMOVAX) Branch TDAP (ADACEL) 2017-04-05 Completed [facility] of VACCINE 00:00:00 [facility] Pneumococcal 2017-04-05 Completed [facility] o f Polysaccharide, 00:00:00 [place] [facility] PPSV23 (PNEUMOVAX) Branch TDAP (ADACEL) 2017-04-05 Completed [facility] of VACCINE 00:00:00 [facility] Pneumococcal 2017-04-05 Completed [facility] o f Polysaccharide, 00:00:00 [place] [facility] PPSV23 (PNEUMOVAX) Branch TDAP (ADACEL) 2017-04-05 Completed [facility] of VACCINE 00:00:00 [facility] Pneumococcal 2017-04-05 Completed [facility] o f Polysaccharide, 00:00:00 [place] [facility] PPSV23 (PNEUMOVAX) Branch TDAP (ADACEL) 2017-04-05 Completed [facility] of VACCINE 00:00:00 [facility] Pneumococcal 2017-04-05 Completed [facility] o f Polysaccharide, 00:00:00 [place] [facility] PPSV23 (PNEUMOVAX) Branch TDAP (ADACEL) 2017-04-05 Completed [facility] of VACCINE 00:00:00 [facility] Pneumococcal 2017-04-05 Completed [facility] o f Polysaccharide, 00:00:00 [place] [facility] PPSV23 (PNEUMOVAX) Branch TDAP (ADACEL) 2017-04-05 Completed [facility] of VACCINE 00:00:00 [facility] Pneumococcal 2017-04-05 Completed [facility] o f Polysaccharide, 00:00:00 [facility] ical PPSV23 (PNEUMOVAX) Branch TDAP (ADACEL) 2017-04-05 Completed [facility] of VACCINE 00:00:00 [facility] Pneumococcal 2017-04-05 Completed [facility] o f Polysaccharide, 00:00:00 [place] [facility] PPSV23 (PNEUMOVAX) Branch TDAP (ADACEL) 2017-04-05 Completed [facility] of VACCINE 00:00:00 [facility] Pneumococcal 2017-04-05 Completed [facility] o f Polysaccharide, 00:00:00 [facility] ical PPSV23 (PNEUMOVAX) Branch TDAP (ADACEL) 2017-04-05 Completed [facility] of VACCINE 00:00:00 [facility] Influenza Virus 2015-08-27 Completed Universit y of Vaccine Quad IM 3+ 00:00:00 [facility] Influenza Virus 2015-08-27 Completed Universit y of Vaccine Quad IM 3+ 00:00:00 [facility] Influenza Virus 2015-08-27 Completed Universit y of Vaccine Quad IM 3+ 00:00:00 [facility] Influenza Virus 2015-08-27 Completed Universit y of Vaccine Quad IM 3+ 00:00:00 [facility] Influenza Virus 2015-08-27 Completed [facility]it y of Vaccine Quad IM 3+ 00:00:00 [facility] Influenza Virus 2015-08-27 Completed [facility]it y of Vaccine Quad IM 3+ 00:00:00 [facility] Influenza Virus 2015-08-27 Completed [facility]it y of Vaccine Quad IM 3+ 00:00:00 [facility] Influenza Virus 2015-08-27 Completed [facility]it y of Vaccine Quad IM 3+ 00:00:00 [facility] Influenza Virus 2015-08-27 Completed [facility]it y of Vaccine Quad IM 3+ 00:00:00 [facility] Influenza Virus 2015-08-27 Completed [facility]it y of Vaccine Quad IM 3+ 00:00:00 [facility] Influenza Virus 2015-08-27 Completed [facility]it y of Vaccine Quad IM 3+ 00:00:00 [facility] Influenza Virus 2015-08-27 Completed Universit y of Vaccine Quad IM 3+ 00:00:00 [facility] Influenza Virus 2015-08-27 Completed Universit y of Vaccine Quad IM 3+ 00:00:00 [facility] Influenza Virus 2015-08-27 Completed Universit y of Vaccine Quad IM 3+ 00:00:00 [facility] Influenza Virus 2015-08-27 Completed Universit y of Vaccine Quad IM 3+ 00:00:00 [facility] Influenza Virus 2015-08-27 Completed Universit y of Vaccine Quad IM 3+ 00:00:00 [facility] Branch Influenza Virus 2015-08-27 Completed Universit y of Vaccine Quad IM 3+ 00:00:00 [facility] Influenza Virus 2015-08-27 Completed Universit y of Vaccine Quad IM 3+ 00:00:00 [facility] Influenza Virus 2015-08-27 Completed Universit y of Vaccine Quad IM 3+ 00:00:00 [facility] Influenza Virus 2015-08-27 Completed Universit y of Vaccine Quad IM 3+ 00:00:00 [facility] Influenza Virus 2015-08-27 Completed Universit y of Vaccine Quad IM 3+ 00:00:00 [facility] Influenza Virus 2015-08-27 Completed Universit y of Vaccine Quad IM 3+ 00:00:00 [facility] Influenza Virus 2015-08-27 Completed Universit y of Vaccine Quad IM 3+ 00:00:00 [facility] Influenza Virus 2015-08-27 Completed Universit y of Vaccine Quad IM 3+ 00:00:00 [facility] Influenza Virus 2015-08-27 Completed Universit y of Vaccine Quad IM 3+ 00:00:00 [facility] Influenza Virus 2015-08-27 Completed Universit y of Vaccine Quad IM 3+ 00:00:00 [facility] Influenza Virus 2015-08-27 Completed [facility]it y of Vaccine Quad IM 3+ 00:00:00 [facility] Influenza Virus 2015-08-27 Completed [facility]it y of Vaccine Quad IM 3+ 00:00:00 [facility] Influenza Virus 2015-08-27 Completed [facility]it y of Vaccine Quad IM 3+ 00:00:00 [facility] Influenza Virus 2015-08-27 Completed [facility]it y of Vaccine Quad IM 3+ 00:00:00 [facility] Influenza Virus 2015-08-27 Completed [facility]it y of Vaccine Quad IM 3+ 00:00:00 [facility] Influenza Virus 2015-08-27 Completed [facility]it y of Vaccine Quad IM 3+ 00:00:00 [facility] Influenza Virus 2015-08-27 Completed [facility]it y of Vaccine Quad IM 3+ 00:00:00 [facility] Influenza Virus 2015-08-27 Completed [facility]it y of Vaccine Quad IM 3+ 00:00:00 [facility] Influenza Virus 2015-08-27 Completed [facility]it y of Vaccine Quad IM 3+ 00:00:00 [facility] Influenza Virus 2015-08-27 Completed [facility]it y of Vaccine Quad IM 3+ 00:00:00 [facility] Influenza Virus 2015-08-27 Completed [facility]it y of Vaccine Quad IM 3+ 00:00:00 [facility] Influenza Virus 2015-08-27 Completed [facility]it y of Vaccine Quad IM 3+ 00:00:00 [facility] Influenza Virus 2015-08-27 Completed [facility]it y of Vaccine Quad IM 3+ 00:00:00 [facility] Influenza Virus 2015-08-27 Completed [facility]it y of Vaccine Quad IM 3+ 00:00:00 [facility] Influenza Virus 2015-08-27 Completed [facility]it y of Vaccine Quad IM 3+ 00:00:00 [facility] Influenza Virus 2015-08-27 Completed [facility]it y of Vaccine Quad IM 3+ 00:00:00 [facility] Influenza Virus 2015-08-27 Completed [facility]it y of Vaccine Quad IM 3+ 00:00:00 [facility] Influenza Virus 2015-08-27 Completed [facility]it y of Vaccine Quad IM 3+ 00:00:00 [facility] Influenza Virus 2015-08-27 Completed [facility]it y of Vaccine Quad IM 3+ 00:00:00 [facility] Influenza Virus 2015-08-27 Completed [facility]it y of Vaccine Quad IM 3+ 00:00:00 [facility] Influenza Virus 2015-08-27 Completed [facility]it y of Vaccine Quad IM 3+ 00:00:00 [facility] Influenza Virus 2015-08-27 Completed [facility]it y of Vaccine Quad IM 3+ 00:00:00 [facility] Influenza Virus 2015-08-27 Completed [facility]it y of Vaccine Quad IM 3+ 00:00:00 [facility] Influenza Virus 2015-08-27 Completed [facility]it y of Vaccine Quad IM 3+ 00:00:00 [facility] Influenza Virus 2015-08-27 Completed [facility]it y of Vaccine Quad IM 3+ 00:00:00 [facility] Influenza Virus 2015-08-27 Completed [facility]it y of Vaccine Quad IM 3+ 00:00:00 [facility] Influenza Virus 2015-08-27 Completed [facility]it y of Vaccine Quad IM 3+ 00:00:00 [facility] Influenza Virus 2015-08-27 Completed [facility]it y of Vaccine Quad IM 3+ 00:00:00 [facility] Influenza Virus 2015-08-27 Completed [facility]it y of Vaccine Quad IM 3+ 00:00:00 [facility] Influenza Virus 2015-08-27 Completed [facility]it y of Vaccine Quad IM 3+ 00:00:00 [facility] Influenza Virus 2015-08-27 Completed [facility]it y of Vaccine Quad IM 3+ 00:00:00 [facility] Influenza Virus 2015-08-27 Completed [facility]it y of Vaccine Quad IM 3+ 00:00:00 [facility] Influenza Virus 2015-08-27 Completed [facility]it y of Vaccine Quad IM 3+ 00:00:00 [facility] Influenza Virus 2015-08-27 Completed [facility]it y of Vaccine Quad IM 3+ 00:00:00 [facility] Pneumococcal 13 2014-11-12 Completed Universit y of Conjugate, PCV13 00:00:00 [facility] dical (Prevnar 13) Branch Pneumococcal 13 2014-11-12 Completed Universit y of Conjugate, PCV13 00:00:00 [place] [facility] (Prevnar 13) [facility] Pneumococcal 13 2014-11-12 Completed [facility]it y of Conjugate, PCV13 00:00:00 [place] [facility] (Prevnar 13) [facility] Pneumococcal 13 2014-11-12 Completed [facility]it y of Conjugate, PCV13 00:00:00 [place] [facility] (Prevnar 13) Branch Pneumococcal 13 2014-11-12 Completed [facility]it y of Conjugate, PCV13 00:00:00 [place] [facility] (Prevnar 13) Branch Pneumococcal 13 2014-11-12 Completed [facility]it y of Conjugate, PCV13 00:00:00 [facility] dical (Prevnar 13) Branch Pneumococcal 13 2014-11-12 Completed [facility]it y of Conjugate, PCV13 00:00:00 [place] [facility] (Prevnar 13) Branch Pneumococcal 13 2014-11-12 Completed [facility]it y of Conjugate, PCV13 00:00:00 [place] [facility] (Prevnar 13) Branch Pneumococcal 13 2014-11-12 Completed [facility]it y of Conjugate, PCV13 00:00:00 [place] [facility] (Prevnar 13) Branch Pneumococcal 13 2014-11-12 Completed [facility]it y of Conjugate, PCV13 00:00:00 [place] [facility] (Prevnar 13) Branch Pneumococcal 13 2014-11-12 Completed [facility]it y of Conjugate, PCV13 00:00:00 [place] [facility] (Prevnar 13) Branch Pneumococcal 13 2014-11-12 Completed [facility]it y of Conjugate, PCV13 00:00:00 [place] [facility] (Prevnar 13) Branch Pneumococcal 13 2014-11-12 Completed [facility] y of Conjugate, PCV13 00:00:00 [place] [facility] (Prevnar 13) Branch Pneumococcal 13 2014-11-12 Completed [facility]it y of Conjugate, PCV13 00:00:00 [place] [facility] (Prevnar 13) Branch Pneumococcal 13 2014-11-12 Completed [facility]it y of Conjugate, PCV13 00:00:00 [place] [facility] (Prevnar 13) Branch Pneumococcal 13 2014-11-12 Completed [facility]it y of Conjugate, PCV13 00:00:00 [place] [facility] (Prevnar 13) Branch Pneumococcal 13 2014-11-12 Completed [facility]it y of Conjugate, PCV13 00:00:00 [place] [facility] (Prevnar 13) Branch Pneumococcal 13 2014-11-12 Completed [facility]it y of Conjugate, PCV13 00:00:00 [place] [facility] (Prevnar 13) Branch Pneumococcal 13 2014-11-12 Completed [facility]it y of Conjugate, PCV13 00:00:00 [place] [facility] (Prevnar 13) Branch Pneumococcal 13 2014-11-12 Completed [facility] y of Conjugate, PCV13 00:00:00 [place] [facility] (Prevnar 13) Branch Pneumococcal 13 2014-11-12 Completed [facility] y of Conjugate, PCV13 00:00:00 [place] [facility] (Prevnar 13) Branch Pneumococcal 13 2014-11-12 Completed [facility]it y of Conjugate, PCV13 00:00:00 [place] [facility] (Prevnar 13) Branch Pneumococcal 13 2014-11-12 Completed [facility]it y of Conjugate, PCV13 00:00:00 [place] [facility] (Prevnar 13) Branch Pneumococcal 13 2014-11-12 Completed [facility]it y of Conjugate, PCV13 00:00:00 [place] [facility] (Prevnar 13) Branch Pneumococcal 13 2014-11-12 Completed [facility] y of Conjugate, PCV13 00:00:00 [place] [facility] (Prevnar 13) Branch Pneumococcal 13 2014-11-12 Completed [facility] y of Conjugate, PCV13 00:00:00 [place] [facility] (Prevnar 13) Branch Pneumococcal 13 2014-11-12 Completed [facility] y of Conjugate, PCV13 00:00:00 [place] [facility] (Prevnar 13) Branch Pneumococcal 13 2014-11-12 Completed [facility] y of Conjugate, PCV13 00:00:00 [place] [facility] (Prevnar 13) Branch Pneumococcal 13 2014-11-12 Completed [facility] y of Conjugate, PCV13 00:00:00 [place] [facility] (Prevnar 13) Branch Pneumococcal 13 2014-11-12 Completed [facility]it y of Conjugate, PCV13 00:00:00 [place] [facility] (Prevnar 13) Branch Pneumococcal 13 2014-11-12 Completed [facility]it y of Conjugate, PCV13 00:00:00 [place] [facility] (Prevnar 13) Branch Pneumococcal 13 2014-11-12 Completed [facility] y of Conjugate, PCV13 00:00:00 [place] [facility] (Prevnar 13) Branch Pneumococcal 13 2014-11-12 Completed [facility] y of Conjugate, PCV13 00:00:00 [place] [facility] (Prevnar 13) Branch Pneumococcal 13 2014-11-12 Completed [facility] y of Conjugate, PCV13 00:00:00 [place] [facility] (Prevnar 13) Branch Pneumococcal 13 2014-11-12 Completed [facility] y of Conjugate, PCV13 00:00:00 [place] [facility] (Prevnar 13) Branch Pneumococcal 13 2014-11-12 Completed [facility]it y of Conjugate, PCV13 00:00:00 [place] [facility] (Prevnar 13) Branch Pneumococcal 13 2014-11-12 Completed [facility] y of Conjugate, PCV13 00:00:00 [place] [facility] (Prevnar 13) Branch Pneumococcal 13 2014-11-12 Completed [facility]it y of Conjugate, PCV13 00:00:00 [place] [facility] (Prevnar 13) Branch Pneumococcal 13 2014-11-12 Completed [facility]it y of Conjugate, PCV13 00:00:00 [facility] (Prevnar 13) [facility] Pneumococcal 13 2014-11-12 Completed [facility] Conjugate, PCV13 00:00:00 [facility] (Prevnar 13) [facility] Pneumococcal 13 2014-11-12 Completed [facility] Conjugate, PCV13 00:00:00 [facility] (Prevnar 13) [facility] Pneumococcal 13 2014-11-12 Completed [facility] Conjugate, PCV13 00:00:00 [facility] (Prevnar 13) [facility] Pneumococcal 13 2014-11-12 Completed [facility] Conjugate, PCV13 00:00:00 [facility] (Prevnar 13) [facility] Pneumococcal 13 2014-11-12 Completed [facility] Conjugate, PCV13 00:00:00 [facility] (Prevnar 13) [facility] Pneumococcal 13 2014-11-12 Completed [facility] Conjugate, PCV13 00:00:00 [facility] (Prevnar 13) [facility] Pneumococcal 13 2014-11-12 Completed [facility] Conjugate, PCV13 00:00:00 [facility] (Prevnar 13) [facility] Pneumococcal 13 2014-11-12 Completed [facility] Conjugate, PCV13 00:00:00 [facility] (Prevnar 13) [facility] Pneumococcal 13 2014-11-12 Completed [facility] Conjugate, PCV13 00:00:00 [facility] (Prevnar 13) [facility] Pneumococcal 13 2014-11-12 Completed [facility] Conjugate, PCV13 00:00:00 [facility] (Prevnar 13) [facility] Pneumococcal 13 2014-11-12 Completed [facility] Conjugate, PCV13 00:00:00 [facility] (Prevnar 13) [facility] Pneumococcal 13 2014-11-12 Completed [facility] Conjugate, PCV13 00:00:00 [facility] (Prevnar 13) [facility] Pneumococcal 13 2014-11-12 Completed [facility] Conjugate, PCV13 00:00:00 [facility] (Prevnar 13) [facility] Pneumococcal 13 2014-11-12 Completed [facility] Conjugate, PCV13 00:00:00 [facility] (Prevnar 13) [facility] Pneumococcal 13 2014-11-12 Completed [facility] Conjugate, PCV13 00:00:00 [facility] (Prevnar 13) [facility] Pneumococcal 13 2014-11-12 Completed [facility] Conjugate, PCV13 00:00:00 [facility] (Prevnar 13) [facility] Pneumococcal 13 2014-11-12 Completed [facility] Conjugate, PCV13 00:00:00 [facility] (Prevnar 13) [facility] Pneumococcal 13 2014-11-12 Completed [facility] Conjugate, PCV13 00:00:00 [facility] (Prevnar 13) [facility] Pneumococcal 13 2014-11-12 Completed [facility] Conjugate, PCV13 00:00:00 [facility] Pneumococcal 13 2014-11-12 Completed [facility] Conjugate, PCV13 00:00:00 [facility] (Prevnar 13) [facility] Pneumococcal 13 2014-11-12 Completed [facility] Conjugate, PCV13 00:00:00 [facility] (Prevnar 13) Branch Hep B, Adol or Pedi 2014-03-08 Completed [facility] Dosage 00:00:00 [facility] Hep B, Adol or Pedi 2014-03-08 Completed [facility] Dosage 00:00:00 [facility] Hep B, Adol or Pedi 2014-03-08 Completed [facility] Dosage 00:00:00 [facility] Hep B, Adol or Pedi 2014-03-08 Completed [facility] Dosage 00:00:00 [facility] Hep B, Adol or Pedi 2014-03-08 Completed [facility] Dosage 00:00:00 [facility] Hep B, Adol or Pedi 2014-03-08 Completed [facility] Dosage 00:00:00 [facility] Hep B, Adol or Pedi 2014-03-08 Completed [facility] Dosage 00:00:00 [facility] Hep B, Adol or Pedi 2014-03-08 Completed [facility] Dosage 00:00:00 [facility] Hep B, Adol or Pedi 2014-03-08 Completed [facility] Dosage 00:00:00 [facility] Hep B, Adol or Pedi 2014-03-08 Completed [facility] Dosage 00:00:00 [facility] Hep B, Adol or Pedi 2014-03-08 Completed [facility] Dosage 00:00:00 [facility] Hep B, Adol or Pedi 2014-03-08 Completed [facility] Dosage 00:00:00 [facility] Hep B, Adol or Pedi 2014-03-08 Completed [facility] Dosage 00:00:00 [facility] Hep B, Adol or Pedi 2014-03-08 Completed [facility] Dosage 00:00:00 [facility] Hep B, Adol or Pedi 2014-03-08 Completed [facility] Dosage 00:00:00 [facility] Hep B, Adol or Pedi 2014-03-08 Completed [facility] Dosage 00:00:00 [facility] Hep B, Adol or Pedi 2014-03-08 Completed [facility] Dosage 00:00:00 [facility] Hep B, Adol or Pedi 2014-03-08 Completed [facility] Dosage 00:00:00 [facility] Hep B, Adol or Pedi 2014-03-08 Completed [facility] Dosage 00:00:00 [facility] Hep B, Adol or Pedi 2014-03-08 Completed [facility] Dosage 00:00:00 [facility] Hep B, Adol or Pedi 2014-03-08 Completed [facility] Dosage 00:00:00 [facility] Hep B, Adol or Pedi 2014-03-08 Completed [facility] Dosage 00:00:00 [facility] Hep B, Adol or Pedi 2014-03-08 Completed [facility] Dosage 00:00:00 [facility] Hep B, Adol or Pedi 2014-03-08 Completed [facility] Dosage 00:00:00 [facility] Hep B, Adol or Pedi 2014-03-08 Completed [facility] Dosage 00:00:00 [facility] Hep B, Adol or Pedi 2014-03-08 Completed [facility] Dosage 00:00:00 [facility] Hep B, Adol or Pedi 2014-03-08 Completed [facility] Dosage 00:00:00 [facility] Hep B, Adol or Pedi 2014-03-08 Completed [facility] Dosage 00:00:00 [facility] Hep B, Adol or Pedi 2014-03-08 Completed [facility] Dosage 00:00:00 [facility] Hep B, Adol or Pedi 2014-03-08 Completed [facility] Dosage 00:00:00 [facility] Hep B, Adol or Pedi 2014-03-08 Completed [facility] Dosage 00:00:00 [facility] Hep B, Adol or Pedi 2014-03-08 Completed [facility] Dosage 00:00:00 [facility] Hep B, Adol or Pedi 2014-03-08 Completed [facility] Dosage 00:00:00 [facility] Hep B, Adol or Pedi 2014-03-08 Completed [facility] Dosage 00:00:00 [facility] Hep B, Adol or Pedi 2014-03-08 Completed [facility] Dosage 00:00:00 [facility] Hep B, Adol or Pedi 2014-03-08 Completed [facility] Dosage 00:00:00 [facility] Hep B, Adol or Pedi 2014-03-08 Completed [facility] Dosage 00:00:00 [facility] Hep B, Adol or Pedi 2014-03-08 Completed [facility] Dosage 00:00:00 [facility] Hep B, Adol or Pedi 2014-03-08 Completed [facility] Dosage 00:00:00 [facility] Hep B, Adol or Pedi 2014-03-08 Completed [facility] Dosage 00:00:00 [facility] Hep B, Adol or Pedi 2014-03-08 Completed [facility] Dosage 00:00:00 [facility] Hep B, Adol or Pedi 2014-03-08 Completed [facility] Dosage 00:00:00 [facility] Hep B, Adol or Pedi 2014-03-08 Completed [facility] Dosage 00:00:00 [facility] Hep B, Adol or Pedi 2014-03-08 Completed [facility] Dosage 00:00:00 [facility] Hep B, Adol or Pedi 2014-03-08 Completed [facility] Dosage 00:00:00 [facility] Hep B, Adol or Pedi 2014-03-08 Completed [facility] Dosage 00:00:00 [facility] Hep B, Adol or Pedi 2014-03-08 Completed [facility] Dosage 00:00:00 [facility] Hep B, Adol or Pedi 2014-03-08 Completed [facility] Dosage 00:00:00 [facility] Hep B, Adol or Pedi 2014-03-08 Completed [facility] Dosage 00:00:00 [facility] Hep B, Adol or Pedi 2014-03-08 Completed [facility] Dosage 00:00:00 [facility] Hep B, Adol or Pedi 2014-03-08 Completed [facility] Dosage 00:00:00 [facility] Hep B, Adol or Pedi 2014-03-08 Completed [facility] Dosage 00:00:00 [facility] Hep B, Adol or Pedi 2014-03-08 Completed [facility] Dosage 00:00:00 [facility] Hep B, Adol or Pedi 2014-03-08 Completed [facility] Dosage 00:00:00 [facility] Hep B, Adol or Pedi 2014-03-08 Completed [facility] Dosage 00:00:00 [facility] Hep B, Adol or Pedi 2014-03-08 Completed [facility] Dosage 00:00:00 [facility] Hep B, Adol or Pedi 2014-03-08 Completed [facility] Dosage 00:00:00 [facility] Hep B, Adol or Pedi 2014-03-08 Completed [facility] Dosage 00:00:00 [facility] Hep B, Adol or Pedi 2014-03-08 Completed [facility] Dosage 00:00:00 [facility] Hep B, Adol or Pedi 2014-03-08 Completed [facility] Dosage 00:00:00 [facility] Hep B, Adol or Pedi 2013-01-03 Completed [facility] Dosage 00:00:00 [facility] Hep B, Adol or Pedi 2013-01-03 Completed [facility] Dosage 00:00:00 [facility] Hep B, Adol or Pedi 2013-01-03 Completed [facility] Dosage 00:00:00 [facility] Hep B, Adol or Pedi 2013-01-03 Completed [facility] Dosage 00:00:00 [facility] Hep B, Adol or Pedi 2013-01-03 Completed [facility] Dosage 00:00:00 [facility] Hep B, Adol or Pedi 2013-01-03 Completed [facility] Dosage 00:00:00 [facility] Hep B, Adol or Pedi 2013-01-03 Completed [facility] Dosage 00:00:00 [facility] Hep B, Adol or Pedi 2013-01-03 Completed [facility] Dosage 00:00:00 [facility] Hep B, Adol or Pedi 2013-01-03 Completed [facility] Dosage 00:00:00 [facility] Hep B, Adol or Pedi 2013-01-03 Completed [facility] Dosage 00:00:00 [facility] Hep B, Adol or Pedi 2013-01-03 Completed [facility] Dosage 00:00:00 [facility] Hep B, Adol or Pedi 2013-01-03 Completed [facility] Dosage 00:00:00 [facility] Hep B, Adol or Pedi 2013-01-03 Completed [facility] Dosage 00:00:00 [facility] Hep B, Adol or Pedi 2013-01-03 Completed [facility] Dosage 00:00:00 [facility] Hep B, Adol or Pedi 2013-01-03 Completed [facility] Dosage 00:00:00 [facility] Hep B, Adol or Pedi 2013-01-03 Completed [facility] Dosage 00:00:00 [facility] Hep B, Adol or Pedi 2013-01-03 Completed [facility] Dosage 00:00:00 [facility] Hep B, Adol or Pedi 2013-01-03 Completed [facility] Dosage 00:00:00 [facility] Hep B, Adol or Pedi 2013-01-03 Completed [facility] Dosage 00:00:00 [facility] Hep B, Adol or Pedi 2013-01-03 Completed [facility] Dosage 00:00:00 [facility] Hep B, Adol or Pedi 2013-01-03 Completed [facility] Dosage 00:00:00 [facility] Hep B, Adol or Pedi 2013-01-03 Completed [facility] Dosage 00:00:00 [facility] Hep B, Adol or Pedi 2013-01-03 Completed [facility] Dosage 00:00:00 [facility] Hep B, Adol or Pedi 2013-01-03 Completed [facility] Dosage 00:00:00 [facility] Hep B, Adol or Pedi 2013-01-03 Completed [facility] Dosage 00:00:00 [facility] Hep B, Adol or Pedi 2013-01-03 Completed [facility] Dosage 00:00:00 [facility] Hep B, Adol or Pedi 2013-01-03 Completed [facility] Dosage 00:00:00 [facility] Hep B, Adol or Pedi 2013-01-03 Completed [facility] Dosage 00:00:00 [facility] Hep B, Adol or Pedi 2013-01-03 Completed [facility] Dosage 00:00:00 [facility] Hep B, Adol or Pedi 2013-01-03 Completed [facility] Dosage 00:00:00 [facility] Hep B, Adol or Pedi 2013-01-03 Completed [facility] Dosage 00:00:00 [facility] Hep B, Adol or Pedi 2013-01-03 Completed [facility] Dosage 00:00:00 [facility] Hep B, Adol or Pedi 2013-01-03 Completed [facility] Dosage 00:00:00 [facility] Hep B, Adol or Pedi 2013-01-03 Completed [facility] Dosage 00:00:00 [facility] Hep B, Adol or Pedi 2013-01-03 Completed [facility] Dosage 00:00:00 [facility] Hep B, Adol or Pedi 2013-01-03 Completed [facility] Dosage 00:00:00 [facility] Hep B, Adol or Pedi 2013-01-03 Completed [facility] Dosage 00:00:00 [facility] Hep B, Adol or Pedi 2013-01-03 Completed [facility] Dosage 00:00:00 [facility] Hep B, Adol or Pedi 2013-01-03 Completed [facility] Dosage 00:00:00 [facility] Hep B, Adol or Pedi 2013-01-03 Completed [facility] Dosage 00:00:00 [facility] Hep B, Adol or Pedi 2013-01-03 Completed [facility] Dosage 00:00:00 [facility] Hep B, Adol or Pedi 2013-01-03 Completed [facility] Dosage 00:00:00 [facility] Hep B, Adol or Pedi 2013-01-03 Completed [facility] Dosage 00:00:00 [facility] Hep B, Adol or Pedi 2013-01-03 Completed [facility] Dosage 00:00:00 [facility] Hep B, Adol or Pedi 2013-01-03 Completed [facility] Dosage 00:00:00 [facility] Hep B, Adol or Pedi 2013-01-03 Completed [facility] Dosage 00:00:00 [facility] Hep B, Adol or Pedi 2013-01-03 Completed [facility] Dosage 00:00:00 [facility] Hep B, Adol or Pedi 2013-01-03 Completed [facility] Dosage 00:00:00 [facility] Hep B, Adol or Pedi 2013-01-03 Completed [facility] Dosage 00:00:00 [facility] Hep B, Adol or Pedi 2013-01-03 Completed [facility] Dosage 00:00:00 [facility] Hep B, Adol or Pedi 2013-01-03 Completed [facility] Dosage 00:00:00 [facility] Hep B, Adol or Pedi 2013-01-03 Completed [facility] Dosage 00:00:00 [facility] Hep B, Adol or Pedi 2013-01-03 Completed [facility] Dosage 00:00:00 [facility] Hep B, Adol or Pedi 2013-01-03 Completed [facility] Dosage 00:00:00 [facility] Hep B, Adol or Pedi 2013-01-03 Completed [facility] Dosage 00:00:00 [facility] Hep B, Adol or Pedi 2013-01-03 Completed [facility] Dosage 00:00:00 [facility] Hep B, Adol or Pedi 2013-01-03 Completed [facility] Dosage 00:00:00 [facility] Hep B, Adol or Pedi 2013-01-03 Completed [facility] Dosage 00:00:00 [facility] Hep B, Adol or Pedi 2013-01-03 Completed [facility] Dosage 00:00:00 [facility] Hep B, Adol or Pedi 2013-01-03 Completed [facility] Dosage 00:00:00 [facility] Influenza Virus 2012-08-17 Completed [facility] Vaccine 00:00:00 [facility] Influenza Virus 2012-08-17 Completed [facility] Vaccine 00:00:00 [facility] Influenza Virus 2012-08-17 Completed [facility] Vaccine 00:00:00 [facility] Influenza Virus 2012-08-17 Completed [facility] Vaccine 00:00:00 [facility] Influenza Virus 2012-08-17 Completed [facility] Vaccine 00:00:00 [facility] Influenza Virus 2012-08-17 Completed [facility] Vaccine 00:00:00 [facility] Influenza Virus 2012-08-17 Completed [facility] Vaccine 00:00:00 [facility] Influenza Virus 2012-08-17 Completed [facility] Vaccine 00:00:00 [facility] Influenza Virus 2012-08-17 Completed [facility] Vaccine 00:00:00 [facility] Influenza Virus 2012-08-17 Completed [facility] Vaccine 00:00:00 [facility] Influenza Virus 2012-08-17 Completed [facility] Vaccine 00:00:00 [facility] Influenza Virus 2012-08-17 Completed [facility] Vaccine 00:00:00 [facility] Influenza Virus 2012-08-17 Completed [facility] Vaccine 00:00:00 [facility] Influenza Virus 2012-08-17 Completed [facility] Vaccine 00:00:00 [facility] Influenza Virus 2012-08-17 Completed [facility] Vaccine 00:00:00 [facility] Influenza Virus 2012-08-17 Completed [facility] Vaccine 00:00:00 [facility] Influenza Virus 2012-08-17 Completed [facility] Vaccine 00:00:00 [facility] Influenza Virus 2012-08-17 Completed [facility] Vaccine 00:00:00 [facility] Influenza Virus 2012-08-17 Completed [facility] Vaccine 00:00:00 [facility] Influenza Virus 2012-08-17 Completed [facility] Vaccine 00:00:00 [facility] Influenza Virus 2012-08-17 Completed [facility] Vaccine 00:00:00 [facility] Influenza Virus 2012-08-17 Completed [facility] Vaccine 00:00:00 [facility] Influenza Virus 2012-08-17 Completed [facility] Vaccine 00:00:00 [facility] Influenza Virus 2012-08-17 Completed [facility] Vaccine 00:00:00 [facility] Influenza Virus 2012-08-17 Completed [facility] Vaccine 00:00:00 [facility] Influenza Virus 2012-08-17 Completed [facility] Vaccine 00:00:00 [facility] Influenza Virus 2012-08-17 Completed [facility] Vaccine 00:00:00 [facility] Influenza Virus 2012-08-17 Completed [facility] Vaccine 00:00:00 [facility] Influenza Virus 2012-08-17 Completed [facility] Vaccine 00:00:00 [facility] Influenza Virus 2012-08-17 Completed [facility] Vaccine 00:00:00 [facility] Influenza Virus 2012-08-17 Completed [facility] Vaccine 00:00:00 [facility] Influenza Virus 2012-08-17 Completed [facility] Vaccine 00:00:00 [facility] Influenza Virus 2012-08-17 Completed [facility] Vaccine 00:00:00 [facility] Influenza Virus 2012-08-17 Completed [facility] Vaccine 00:00:00 [facility] Influenza Virus 2012-08-17 Completed [facility] Vaccine 00:00:00 [facility] Influenza Virus 2012-08-17 Completed [facility] Vaccine 00:00:00 [facility] Influenza Virus 2012-08-17 Completed [facility] Vaccine 00:00:00 [facility] Influenza Virus 2012-08-17 Completed [facility] Vaccine 00:00:00 [facility] Influenza Virus 2012-08-17 Completed [facility] Vaccine 00:00:00 [facility] Influenza Virus 2012-08-17 Completed [facility] Vaccine 00:00:00 [facility] Influenza Virus 2012-08-17 Completed [facility] Vaccine 00:00:00 [facility] Influenza Virus 2012-08-17 Completed [facility] Vaccine 00:00:00 [facility] Influenza Virus 2012-08-17 Completed [facility] Vaccine 00:00:00 [facility] Influenza Virus 2012-08-17 Completed [facility] Vaccine 00:00:00 [facility] Influenza Virus 2012-08-17 Completed [facility] Vaccine 00:00:00 [facility] Influenza Virus 2012-08-17 Completed [facility] Vaccine 00:00:00 [facility] Influenza Virus 2012-08-17 Completed [facility] Vaccine 00:00:00 [facility] Influenza Virus 2012-08-17 Completed [facility] Vaccine 00:00:00 [facility] Influenza Virus 2012-08-17 Completed [facility] Vaccine 00:00:00 [facility] Influenza Virus 2012-08-17 Completed [facility] Vaccine 00:00:00 [facility] Influenza Virus 2012-08-17 Completed [facility] Vaccine 00:00:00 [facility] Influenza Virus 2012-08-17 Completed [facility] Vaccine 00:00:00 [facility] Influenza Virus 2012-08-17 Completed [facility] Vaccine 00:00:00 [facility] Influenza Virus 2012-08-17 Completed [facility] Vaccine 00:00:00 [facility] Influenza Virus 2012-08-17 Completed [facility] Vaccine 00:00:00 [facility] Influenza Virus 2012-08-17 Completed [facility] Vaccine 00:00:00 [facility] Influenza Virus 2012-08-17 Completed [facility] Vaccine 00:00:00 [facility] Influenza Virus 2012-08-17 Completed [facility] Vaccine 00:00:00 [facility] Influenza Virus 2012-08-17 Completed [facility] Vaccine 00:00:00 [facility] Influenza Virus 2012-08-17 Completed [facility] Vaccine 00:00:00 [facility] Influenza Virus 2010-09-20 Completed [facility] Vaccine 00:00:00 [facility] Influenza Virus 2010-09-20 Completed [facility] Vaccine 00:00:00 [facility] Influenza Virus 2010-09-20 Completed [facility] Vaccine 00:00:00 [facility] Influenza Virus 2010-09-20 Completed [facility] Vaccine 00:00:00 [facility] Influenza Virus 2010-09-20 Completed [facility] Vaccine 00:00:00 [facility] Influenza Virus 2010-09-20 Completed [facility] Vaccine 00:00:00 [facility] Influenza Virus 2010-09-20 Completed [facility] Vaccine 00:00:00 [facility] Influenza Virus 2010-09-20 Completed [facility] Vaccine 00:00:00 [facility] Influenza Virus 2010-09-20 Completed [facility] Vaccine 00:00:00 [facility] Influenza Virus 2010-09-20 Completed [facility] Vaccine 00:00:00 [facility] Influenza Virus 2010-09-20 Completed [facility] Vaccine 00:00:00 [facility] Influenza Virus 2010-09-20 Completed [facility] Vaccine 00:00:00 [facility] Influenza Virus 2010-09-20 Completed [facility] Vaccine 00:00:00 [facility] Influenza Virus 2010-09-20 Completed [facility] Vaccine 00:00:00 [facility] Influenza Virus 2010-09-20 Completed [facility] Vaccine 00:00:00 [facility] Influenza Virus 2010-09-20 Completed [facility] Vaccine 00:00:00 [facility] Influenza Virus 2010-09-20 Completed [facility] Vaccine 00:00:00 [facility] Influenza Virus 2010-09-20 Completed [facility] Vaccine 00:00:00 [facility] Influenza Virus 2010-09-20 Completed [facility] Vaccine 00:00:00 [facility] Influenza Virus 2010-09-20 Completed [facility] Vaccine 00:00:00 [facility] Influenza Virus 2010-09-20 Completed [facility] Vaccine 00:00:00 [facility] Influenza Virus 2010-09-20 Completed [facility] Vaccine 00:00:00 [facility] Influenza Virus 2010-09-20 Completed [facility] Vaccine 00:00:00 [facility] Influenza Virus 2010-09-20 Completed [facility] Vaccine 00:00:00 [facility] Influenza Virus 2010-09-20 Completed [facility] Vaccine 00:00:00 [facility] Influenza Virus 2010-09-20 Completed [facility] Vaccine 00:00:00 [facility] Influenza Virus 2010-09-20 Completed [facility] Vaccine 00:00:00 [facility] Influenza Virus 2010-09-20 Completed [facility] Vaccine 00:00:00 [facility] Influenza Virus 2010-09-20 Completed [facility] Vaccine 00:00:00 [facility] Influenza Virus 2010-09-20 Completed [facility] Vaccine 00:00:00 [facility] Influenza Virus 2010-09-20 Completed [facility] Vaccine 00:00:00 [facility] Influenza Virus 2010-09-20 Completed [facility] Vaccine 00:00:00 [facility] Influenza Virus 2010-09-20 Completed [facility] Vaccine 00:00:00 [facility] Influenza Virus 2010-09-20 Completed [facility] Vaccine 00:00:00 [facility] Influenza Virus 2010-09-20 Completed [facility] Vaccine 00:00:00 [facility] Influenza Virus 2010-09-20 Completed [facility] Vaccine 00:00:00 [facility] Influenza Virus 2010-09-20 Completed [facility] Vaccine 00:00:00 [facility] Influenza Virus 2010-09-20 Completed [facility] Vaccine 00:00:00 [facility] Influenza Virus 2010-09-20 Completed [facility] Vaccine 00:00:00 [facility] Influenza Virus 2010-09-20 Completed [facility] 00:[facility]:00 [place] [facility] Influenza Virus 2010-09-20 Completed Universit y of Vaccine 00:00:00 [facility] Influenza Virus 2010-09-20 Completed Universit y of Vaccine 00:00:00 [facility] Influenza Virus 2010-09-20 Completed Universit y of Vaccine 00:00:00 [facility] Influenza Virus 2010-09-20 Completed Universit y of Vaccine 00:00:00 [facility] Influenza Virus 2010-09-20 Completed Universit y of Vaccine 00:00:00 [facility] Influenza Virus 2010-09-20 Completed Universit y of Vaccine 00:00:00 [facility] Influenza Virus 2010-09-20 Completed Universit y of Vaccine 00:00:00 [facility] Influenza Virus 2010-09-20 Completed Universit y of Vaccine 00:00:00 [facility] Influenza Virus 2010-09-20 Completed Universit y of Vaccine 00:00:00 [facility] Influenza Virus 2010-09-20 Completed Universit y of Vaccine 00:00:00 [facility] Influenza Virus 2010-09-20 Completed Universit y of Vaccine 00:00:00 [facility] Influenza Virus 2010-09-20 Completed Universit y of Vaccine 00:00:00 [facility] Influenza Virus 2010-09-20 Completed Universit y of Vaccine 00:00:00 [facility] Influenza Virus 2010-09-20 Completed Universit y of Vaccine 00:00:00 [facility] Influenza Virus 2010-09-20 Completed Universit y of Vaccine 00:00:00 [facility] Influenza Virus 2010-09-20 Completed Universit y of Vaccine 00:00:00 [facility] Influenza Virus 2010-09-20 Completed Universit y of Vaccine 00:00:00 [facility] Influenza Virus 2010-09-20 Completed Universit y of Vaccine 00:00:00 [facility] Influenza Virus 2010-09-20 Completed Universit y of Vaccine 00:00:00 [facility] Influenza Virus 2010-09-20 Completed Universit y of Vaccine 00:00:00 [facility] Influenza Virus Unknown Completed Universit y of Vaccine Quad IM 3+ [facility] Branch Hep B, Adol or Pedi Unknown Completed Unive rsity of Dosage [facility] Hep B, Adol or Pedi Unknown Completed Unive rsity of Dosage [facility] Branch Influenza Virus Unknown Completed Universit y of Vaccine [facility] Influenza Virus Unknown Completed Universit y of Vaccine [facility] Pneumococcal 13 Unknown Completed Universit y of Conjugate, PCV13 [facility] dical (Prevnar 13) Branch Pneumococcal Unknown Completed University o Polysaccharide, [facility] PPSV23 (PNEUMOVAX) Branch TDAP (ADACEL) Unknown Completed University of VACCINE [facility] Influenza Virus Unknown Completed Universit y of Vaccine Quad IM 3+ [facility] Branch Influenza Virus Unknown Completed Universit y of Vaccine Quad IM 3+ [facility] Branch Influenza Virus Unknown Completed Universit y of Vaccine Quad .5 mL [facility] 6+ MO Branch (FLUZONE/FLULAVAL/F LUARIX) Influenza Virus Unknown Completed Universit y of Vaccine Quad .5 mL [facility] 6+ MO Branch (FLUZONE/FLULAVAL/F LUARIX) Influenza Virus Unknown Completed Universit y of Vaccine Quad .5 mL [facility] 6+ MO Branch (FLUZONE/FLULAVAL/F LUARIX) SARS-COV-2 COVID-19 Unknown Completed Unive rsity of MODERNA 12+ YRS [facility] ica VACCINE Branch SARS-COV-2 COVID-19 Unknown Completed Unive rsity of MODERNA 12+ YRS [facility] ica VACCINE Branch Influenza Virus Unknown Completed Universit y of Vaccine Quad IM, [facility] dical Preserv and ABX Branch Free 6 MO-64 YRS (FLUCELVAX) Influenza Virus Unknown Completed Universit y of Vaccine Quad IM, [facility] dical Preserv and ABX Branch Free 6 MO-64 YRS (FLUCELVAX) Pneumococcal 20 Unknown Completed Universit y of Conjugate, PCV20 [facility] dical (Prevnar 20) Branch Influenza Virus Unknown Completed Universit y of Vaccine Quad IM 3+ [facility] Branch Hep B, Adol or Pedi Unknown Completed Unive rsity of Dosage [facility] Hep B, Adol or Pedi Unknown Completed Unive rsity of Dosage [facility] Influenza Virus Unknown Completed Universit y of Vaccine [facility] Influenza Virus Unknown Completed [facility]it y of Vaccine [facility] Pneumococcal 13 Unknown Completed Universit y of Conjugate, PCV13 [facility] dical (Prevnar 13) Branch Pneumococcal Unknown Completed University o f Polysaccharide, [facility] ical PPSV23 (PNEUMOVAX) Branch TDAP (ADACEL) Unknown Completed University of VACCINE [facility] Branch Influenza Virus Unknown Completed Universit y of Vaccine Quad IM 3+ [facility] Influenza Virus Unknown Completed Universit y of Vaccine Quad IM 3+ [facility] Branch Influenza Virus Unknown Completed Universit y of Vaccine Quad .5 mL [facility] IM 6+ MO Branch (FLUZONE/FLULAVAL/F LUARIX) Influenza Virus Unknown Completed Universit y of Vaccine Quad .5 mL [facility] IM 6+ MO Branch (FLUZONE/FLULAVAL/F LUARIX) Influenza Virus Unknown Completed Universit y of Vaccine Quad .5 mL [facility] IM 6+ MO Branch (FLUZONE/FLULAVAL/F LUARIX) SARS-COV-2 COVID-19 Unknown Completed Unive rsity of MODERNA 12+ YRS [facility] ical VACCINE Branch SARS-COV-2 COVID-19 Unknown Completed Unive rsity of MODERNA 12+ YRS [facility] ical VACCINE Branch Influenza Virus Unknown Completed Universit y of Vaccine Quad IM, [facility] dical Preserv and ABX Branch Free 6 MO-64 YRS (FLUCELVAX) Influenza Virus Unknown Completed Universit y of Vaccine Quad IM, [facility] dical Preserv and ABX Branch Free 6 MO-64 YRS (FLUCELVAX) Pneumococcal 20 Unknown Completed Universit y of Conjugate, PCV20 [facility] dical (Prevnar 20) Branch Influenza Virus Unknown Completed Universit y of Vaccine Quad IM 3+ [facility] Branch Hep B, Adol or Pedi Unknown Completed Unive rsity of Dosage [facility] Branch Hep B, Adol or Pedi Unknown Completed Unive rsity of Dosage [facility] Branch Influenza Virus Unknown Completed Universit y of Vaccine [facility] Influenza Virus Unknown Completed Universit y of Vaccine [facility] Branch Pneumococcal 13 Unknown Completed Universit y of Conjugate, PCV13 [facility] dical (Prevnar 13) Branch Pneumococcal Unknown Completed University o f Polysaccharide, [facility] ical PPSV23 (PNEUMOVAX) Branch TDAP (ADACEL) Unknown Completed University of VACCINE [facility] Influenza Virus Unknown Completed Universit y of Vaccine Quad IM 3+ [facility] Influenza Virus Unknown Completed Universit y of Vaccine Quad IM 3+ [facility] Influenza Virus Unknown Completed Universit y of Vaccine Quad .5 mL [facility] IM 6+ MO Branch (FLUZONE/FLULAVAL/F LUARIX) Influenza Virus Unknown Completed Universit y of Vaccine Quad .5 mL [facility] IM 6+ MO Branch (FLUZONE/FLULAVAL/F LUARIX) Influenza Virus Unknown Completed Universit y of Vaccine Quad .5 mL [facility] IM 6+ MO Branch (FLUZONE/FLULAVAL/F LUARIX) SARS-COV-2 COVID-19 Unknown Completed Unive rsity of MODERNA 12+ YRS [facility] ical VACCINE Branch SARS-COV-2 COVID-19 Unknown Completed Unive rsity of MODERNA 12+ YRS [facility] ical VACCINE Branch Influenza Virus Unknown Completed Universit y of Vaccine Quad IM, [facility] dical Preserv and ABX Branch Free 6 MO-64 YRS (FLUCELVAX) Influenza Virus Unknown Completed Universit y of Vaccine Quad IM, [facility] dical Preserv and ABX Branch Free 6 MO-64 YRS (FLUCELVAX) Pneumococcal 20 Unknown Completed Universit y of Conjugate, PCV20 [facility] dical (Prevnar 20) Branch Influenza Virus Unknown Completed Universit y of Vaccine Quad IM 3+ [facility] YRS Branch Hep B, Adol or Pedi Unknown Completed Unive rsity of Dosage [facility] Hep B, Adol or Pedi Unknown Completed Unive rsity of Dosage [facility] Branch Influenza Virus Unknown Completed Universit y of Vaccine [facility] Branch Influenza Virus Unknown Completed Universit y of Vaccine [facility] Branch Pneumococcal 13 Unknown Completed Universit y of Conjugate, PCV13 [facility] dical (Prevnar 13) Branch Pneumococcal Unknown Completed University o f Polysaccharide, [facility] ica PPSV23 (PNEUMOVAX) Branch TDAP (ADACEL) Unknown Completed University of VACCINE [facility] Branch Influenza Virus Unknown Completed Universit y of Vaccine Quad IM 3+ [facility] Influenza Virus Unknown Completed Universit y of Vaccine Quad IM 3+ [facility] YRS Branch Influenza Virus Unknown Completed Universit y of Vaccine Quad .5 mL [facility] IM 6+ MO Branch (FLUZONE/FLULAVAL/F LUARIX) Influenza Virus Unknown Completed Universit y of Vaccine Quad .5 mL [facility] IM 6+ MO Branch (FLUZONE/FLULAVAL/F LUARIX) Influenza Virus Unknown Completed Universit y of Vaccine Quad .5 mL [facility] IM 6+ MO Branch (FLUZONE/FLULAVAL/F LUARIX) SARS-COV-2 COVID-19 Unknown Completed Unive rsity of MODERNA 12+ YRS [facility] ica VACCINE Branch SARS-COV-2 COVID-19 Unknown Completed Unive rsity of MODERNA 12+ YRS [facility] VACCINE Branch Influenza Virus Unknown Completed Universit y of Vaccine Quad IM, [facility] dical Preserv and ABX Branch Free 6 MO-64 YRS (FLUCELVAX) Influenza Virus Unknown Completed Universit y of Vaccine Quad IM, [facility] dical Preserv and ABX Branch Free 6 MO-64 YRS (FLUCELVAX) Pneumococcal 20 Unknown Completed Universit y of Conjugate, PCV20 [facility] dical (Prevnar 20) Branch Influenza Virus Unknown Completed Universit y of Vaccine Quad IM 3+ [facility] Branch Hep B, Adol or Pedi Unknown Completed Unive rsity of Dosage [facility] Hep B, Adol or Pedi Unknown Completed Unive rsity of Dosage [facility] Influenza Virus Unknown Completed Universit y of Vaccine [facility] Influenza Virus Unknown Completed Universit y of Vaccine [facility] Branch Pneumococcal 13 Unknown Completed Universit y of Conjugate, PCV13 [facility] dical (Prevnar 13) Branch Pneumococcal Unknown Completed University o Polysaccharide, [facility] PPSV23 (PNEUMOVAX) Branch TDAP (ADACEL) Unknown Completed University of VACCINE [facility] Influenza Virus Unknown Completed Universit y of Vaccine Quad IM 3+ [facility] Branch Influenza Virus Unknown Completed Universit y of Vaccine Quad IM 3+ [facility] Branch Influenza Virus Unknown Completed Universit y of Vaccine Quad .5 mL [facility] IM 6+ MO Branch (FLUZONE/FLULAVAL/F LUARIX) Influenza Virus Unknown Completed Universit y of Vaccine Quad .5 mL [facility] IM 6+ MO Branch (FLUZONE/FLULAVAL/F LUARIX) Influenza Virus Unknown Completed Universit y of Vaccine Quad .5 mL [facility] IM 6+ MO Branch (FLUZONE/FLULAVAL/F LUARIX) SARS-COV-2 COVID-19 Unknown Completed Unive rsity of MODERNA 12+ YRS [facility] ica VACCINE Branch SARS-COV-2 COVID-19 Unknown Completed Unive rsity of MODERNA 12+ YRS [facility] ica VACCINE Branch Influenza Virus Unknown Completed Universit y of Vaccine Quad IM, [facility] dical Preserv and ABX Branch Free 6 MO-64 YRS (FLUCELVAX) Influenza Virus Unknown Completed Universit y of Vaccine Quad IM, [facility] dical Preserv and ABX Branch Free 6 MO-64 YRS (FLUCELVAX) Pneumococcal 20 Unknown Completed Universit y of Conjugate, PCV20 [facility] dical (Prevnar 20) Branch Influenza Virus Unknown Completed Universit y of Vaccine Quad IM 3+ [facility] Branch Hep B, Adol or Pedi Unknown Completed Unive rsity of Dosage [facility] Hep B, Adol or Pedi Unknown Completed Unive rsity of Dosage [facility] Influenza Virus Unknown Completed Universit y of Vaccine [facility] Influenza Virus Unknown Completed Universit y of Vaccine [facility] Pneumococcal 13 Unknown Completed Universit y of Conjugate, PCV13 [facility] (Prevnar 13) Branch Pneumococcal Unknown Completed University o f Polysaccharide, [facility] PPSV23 (PNEUMOVAX) Branch TDAP (ADACEL) Unknown Completed University of VACCINE [facility] Influenza Virus Unknown Completed Universit y of Vaccine Quad IM 3+ [facility] Branch Influenza Virus Unknown Completed Universit y of Vaccine Quad IM 3+ [facility] Branch Influenza Virus Unknown Completed Universit y of Vaccine Quad .5 mL [facility] IM 6+ MO Branch (FLUZONE/FLULAVAL/F LUARIX) Influenza Virus Unknown Completed Universit y of Vaccine Quad .5 mL [facility] IM 6+ MO Branch (FLUZONE/FLULAVAL/F LUARIX) Influenza Virus Unknown Completed Universit y of Vaccine Quad .5 mL [facility] IM 6+ MO Branch (FLUZONE/FLULAVAL/F LUARIX) SARS-COV-2 COVID-19 Unknown Completed Unive rsity of MODERNA 12+ YRS [facility] VACCINE Branch SARS-COV-2 COVID-19 Unknown Completed Unive rsity of MODERNA 12+ YRS [facility] VACCINE Branch Influenza Virus Unknown Completed Universit y of Vaccine Quad IM, [facility] dical Preserv and ABX Branch Free 6 MO-64 YRS (FLUCELVAX) Influenza Virus Unknown Completed Universit y of Vaccine Quad IM, [facility] dical Preserv and ABX Branch Free 6 MO-64 YRS (FLUCELVAX) Pneumococcal 20 Unknown Completed Universit y of Conjugate, PCV20 [facility] dical (Prevnar 20) Branch Vital Signs Vital Name Observation Time Observation Value Comments Source Systolic blood 2023-02-04 15:10:00 120 mm[Hg] Univer sity of pressure [facility] Diastolic blood 2023-02-04 15:10:00 86 mm[Hg] Unive rsity of pressure [facility] Heart rate 2023-02-04 15:10:00 91 /min Universi ty of [facility] Body temperature 2023-02-04 15:10:00 36.33 Vanessa Univ ersity of [facility] Respiratory rate 2023-02-04 15:10:00 18 /min Univ ersity of [facility] Body height 2023-02-04 15:10:00 162.6 cm [facility] of [facility] Body weight 2023-02-04 15:10:00 94.076 kg [facility] BMI 2023-02-04 15:10:00 35.60 kg/m2 [facility] Systolic blood 2023-01-27 20:12:00 122 mm[Hg] Univer sity of [facility] Diastolic blood 2023-01-27 20:12:00 82 mm[Hg] Unive rsity of [facility] Heart rate 2023-01-27 20:12:00 113 /min [facility]i ty of [facility] Body temperature 2023-01-27 20:12:00 36.22 Vanessa Univ ersity of [facility] Branch Respiratory rate 2023-01-27 20:12:00 18 /min Univ ersity of [facility] Body height 2023-01-27 20:12:00 162.6 cm Universi ty of [facility] Body weight 2023-01-27 20:12:00 97.251 kg Universi ty of [facility] BMI 2023-01-27 20:12:00 36.80 kg/m2 Universi ty of [facility] Systolic blood 2022-07-17 13:56:00 136 mm[Hg] Univer sity of pressure [facility] Diastolic blood 2022-07-17 13:56:00 86 mm[Hg] Unive rsity of pressure [facility] Heart rate 2022-07-17 13:56:00 102 /min Universi ty of [facility] Body temperature 2022-07-17 13:56:00 36.72 Vanessa [facility] ersity of [facility] Respiratory rate 2022-07-17 13:56:00 20 /min [facility] ersity of [facility] Body height 2022-07-17 13:56:00 162.6 cm Universi ty of [facility] Body weight 2022-07-17 13:56:00 103.448 kg Universi ty of [facility] BMI 2022-07-17 13:56:00 39.15 kg/m2 Universi ty of [facility] Systolic blood 2022-07-02 14:21:00 130 mm[Hg] Univer sity of [facility] Diastolic blood 2022-07-02 14:21:00 84 mm[Hg] [facility] Heart rate 2022-07-02 14:21:00 97 /min Universi ty of [facility] Body temperature 2022-07-02 14:21:00 37.06 Vanessa [facility] Respiratory rate 2022-07-02 14:21:00 18 /min [facility] Body height 2022-07-02 14:21:00 162.6 cm Universi ty of [facility] Body weight 2022-07-02 14:21:00 102.967 kg Universi ty of [facility] BMI 2022-07-02 14:21:00 38.96 kg/m2 Universi ty of [facility] Oxygen saturation in 2022-07-02 14:21:00 97 /min [facility] Arterial blood by [facility] Pulse oximetry Branch Procedures Procedure Date / Time Performing Clinician Source Performed BCCS-RELATED DOCUMENTATION 2023-04-28 05:01:00 Doctor Unassigned , [facility] Branch COMP. METABOLIC PANEL 2023-02-04 16:28:00 [facility] ([id number]) [facility] CD4 SUBSET ASSAY 2023-02-04 16:28:00 Maryanne Gutiérrez [facility] URINALYSIS 2023-02-04 16:28:00 Maryanne Gutiérrez [place] [facility] GC & CHLAMYDIA AMPLIFIED 2023-02-04 16:28:00 Maryanne Gutiérrez Uni versity [facility] HUMAN IMMUNODEFICIENCY 2023-02-04 16:28:00 [facility] VIRUS 1 (HIV-1) BY Medical [facility] QUANTITATIVE NAAT PROTEIN CREAT RATIO URINE 2023-02-04 16:28:00 [facility] 2023-02-04 16:28:00 Maryanne Gutiérrezer sity [facility] SYPHILIS IGG/IGM 2023-02-04 16:28:00 Maryanne Gutiérrez [facility] ASSIGNMENT OF BENEFITS 2022-07-17 13:29:50 [facility], [facility] [facility] PNEUMOCOCCAL 20 CONJUGATE 2022-07-02 15:44:29 Christina Carr [facility] (PREVNAR 20) VACCINE Medical [facility] FLU VACC (), 6 2022-07-02 15:41:13 Christina Carr [facility] MO-64 YRS, .5ML, IM, QUAD Medica l Branch (FLUCELVAX) Encounters Start End Encounter Admission Attending Care Care Encounter Source Date/Time Date/Time Type Type Clinicians Facility Department ID 2023-08-05 2023-08-05 Outpatient R BROCK [facility] [id number] 10:30:00 10:30:[facility]23-08-02 2023-08-02 Case Nuzhat, UNIVERSIT [id number] Univers 00:00:00 00:00:00 Management Rola L Y HEALTH [id number] [id number] [id number] [address] 2023-07-30 2023-07-30 JEANNE EsparzaIT [id number] Univers 00:00:00 00:00:00 Management Nechelle Y HEALTH [id number] [id number] [id number] [address] 2023-07-19 2023-07-19 Outpatient R DEANDRE, [facility] [id number] Univers 09:30:00 09:30:00 DENISE bundy [facility] 2023-07-19 2023-07-19 Refnico Gutiérrez [facility] [id number] Univers 00:00:00 00:00:00 Maryanne Y HEALTH [id number] i [id number] [id number] [address] 2023-07-19 2023-07-19 Telephone Brock [facility] [id number] Univers 00:00:00 00:00:00 Maryanne Y HEALTH [id number] i [id number] [id number] [address] 2023-06-29 2023-06-29 Case Kim [facility] [id number] Univers 00:00:00 00:00:00 Management Nechelle Y HEALTH [id number] [id number] [id number] [address] 2023-05-25 2023-05-25 Case Kim [facility] [id number] Univers 00:00:00 00:00:00 Management Nechelle Y HEALTH [id number] [id number] [id number] [address] 2023-05-19 2023-05-19 Case Kim [facility] [id number] Univers 00:00:00 00:00:00 Management Nechelle Y HEALTH [id number] [id number] [id number] [address] 2023-04-28 2023-04-28 Orders Doctor DELONG [id number] Univers 00:00:00 00:00:00 Only Unassigned, JORGE L [id number] ity of [facility] 4.2.7.2.686 [place] [id number] [place] [id number] Branch 2023-04-12 2023-04-12 Case Harmeet, [facility] [id number] Univers 00:00:00 00:00:00 Management Arlette L Y HEALTH [id number] [id number] [id number] [address] 2023-02-26 2023-02-26 Patient Brock, [facility] [id number] [id number] Univers 00:00:00 00:00:00 Secure Msg Maryanne Y HEALTH [id number] [id number] [id number] [address] 2023-02-23 2023-02-23 [facility] [id number] Univers 00:00:00 00:00:00 Maryanne Y HEALTH [id number] i ty [id number] [id number] [address] 2023-02-19 2023-02-19 Telephone [facility] [id number] Univers 00:00:00 00:00:00 Maryanne Y HEALTH [id number] i ty [id number] [id number] [address] 2023-02-10 2023-02-10 Case Beatriz, [facility] [id number] [id number] Univers 00:00:00 00:00:00 Management Cathie L Y HEALTH 350.1.13.10 [place] [id number] [address] 2023-02-10 2023-02-10 [facility] 1.2.840.114 102 [id number] Univers 00:00:00 00:00:00 Maryanne Y HEALTH 350.1.13.10 i ty of [place] [id number] [place] [address] Me[place] 2023-02-04 2023-02-04 High [employer] Coach [facility] 1.2.840.114 1 [id number] Univers 11:15:00 11:30:00 Visit Maryanne Gutiérrez HEALTH 350.1.13.10 ity of [place] [id number] [facility] 316 [place] 2023-02-04 2023-02-04 Outpatient R BROCK, [facility] [id number] Univers 10:30:00 11:00:03 MARYANNE lo of [facility] 2023-02-04 2023-02-04 Office Brock [facility] 1.2.840.114 102 [id number] Univers 10:30:00 11:00:03 Visit [facility] 350.1.13.10 i ty [place] [id number] [address] 2023-02-04 2023-02-04 Case Mukund Shepherd, [facility] 1.2.840.114 1 [id number] Univers 00:00:00 00:00:00 Management Cathie R Y HEALTH 350.1.13.10 ity [place] [id number] [place] [address] Me[place] 2023-02-03 2023-02-03 Telephone Noland, [facility] 1.2.840.114 [id number] Univers 00:00:00 00:00:00 Rola L Y HEALTH 350.1.13.10 it[place] [id number] [address] 2023-01-27 2023-01-27 Outpatient R DEANDRE, [facility] [id number] Univers 15:00:00 15:36:12 DENISE bundy [facility] 2023-01-27 2023-01-27 [facility] 1.2.027.582 [id number] Univers 15:00:00 15:36:12 Visit Denise Rae PLUMBER APPRENTICE 350.1.13.10 ity of REGIONAL 4.2.7.2.686 Ibrahima as MATERNAL [phone] [facility] [address] [place] [address] 2023-01-27 2023-01-27 Case JEANNE HendersonIT 1.2.840.114 10 [id number] Univers 00:00:00 00:00:00 Management Cathie L Y HEALTH 350.1.13.10 it[place] [id number] [address] 2023-01-25 2023-01-25 [facility] 1.2.840.114 1 [id number] Univers 00:00:00 00:00:00 Dasha Rivas PLUMBER APPRENTICE 350.1.13.10 i ty of REGIONAL 4.2.7.2.686 Ibrahima as MATERNAL [id number] [facility] & CHILD [address] [place] [address] 2022-12-31 2022-12-31 Outpatient Izaiah [facility] [id number] Univers 10:00:00 10:00:00 MARYANNE lo [facility] 2022-11-20 2022-11-20 Case CHITO Alvarez 1.2.840.114 1 [id number] Univers 00:00:00 00:00:00 Management Nechelle Y HEALTH 350.1.13.10 ity [place] [id number] [address] 2022-11-19 2022-11-19 CHITO [place] 1.2.840.114 100 [id number] Univers 00:00:00 00:00:00 Maryanne HEALTH 350.1.13.10 i ty [place] [id number] [address] 2022-11-19 2022-11-19 Case CHITO Alvarez 1.2.840.114 1 [id number] Univers 00:00:00 00:00:00 Management Nechelle Y HEALTH 350.1.13.10 ity [place] [id number] [address] 2022-11-19 2022-11-19 Case CHITO Alvarez 1.2.840.114 1 [id number] Univers 00:00:00 00:00:00 Management Nechelle Y HEALTH 350.1.13.10 ity [place] [id number] [address] 2022-11-19 2022-11-19 Telephone Brock [facility] 1.2.840.114 1 [id number] Univers 00:00:00 00:00:00 Maryanne Y HEALTH 350.1.13.10 i ty [place] [id number] [address] 2022-11-18 2022-11-18 Refill [facility] 1.2.840.114 100 [id number] Univers 00:00:00 00:00:00 Maryanne Y HEALTH 350.1.13.10 i ty [place] [id number] [address] 2022-11-18 2022-11-18 Case [facility] 1.2.840.114 1 [id number] Univers 00:00:00 00:00:00 Management Nechelle Y HEALTH 350.1.13.10 ity [place] [id number] [address] 2022-11-12 2022-11-12 Bharat [facility]rez [facility] 1.2.840.114 100 [id number] Univers 00:00:00 00:00:00 Management Maryanne Y HEALTH 350.1.13.10 ity of [place] [id number] [address] 2022-11-12 2022-11-12 Refnico Gomezlourdes [facility] 1.2.840.114 100 [id number] Univers 00:00:00 00:00:00 Maryanne Y HEALTH 350.1.13.10 i ty [place] [id number] [address] 2022-11-12 2022-11-12 Jeb Brock [facility] 1.2.840.114 1 [id number] Univers 00:00:00 00:00:00 Maryanne Y HEALTH 350.1.13.10 i ty [place] 141.6902404 [address] 2022-11-11 2022-11-11 Telephone Brock [facility] 1.2.840.114 1 [id number] Univers 00:00:00 00:00:00 Maryanne Y HEALTH 350.1.13.10 i ty [place] [id number] [address] 2022-11-11 2022-11-11 Case Beatriz, [facility] 1.2.840.114 10 [id number] Univers 00:00:00 00:00:00 Management Cathie L Y HEALTH 350.1.13.10 ity of [place] [id number] [address] 2022-11-11 2022-11-11 Case Kim [facility] 1.2.840.114 1 [id number] Univers 00:00:00 00:00:00 Management Nechelle Y HEALTH 350.1.13.10 ity [place] [id number] [address] 2022-11-11 2022-11-11 Case Kim, [facility] 1.2.840.114 1 [id number] Univers 00:00:00 00:00:00 Management Nechelle Y HEALTH 350.1.13.10 ity [place] [id number] [address] 2022-09-29 2022-09-29 Outpatient R ZEENAT LAWS [facility] [id number] Univers 14:20:00 14:20:00 ZEENAT LAWS [facility] 2022-09-16 2022-09-16 Case Beatriz [facility] 1.2.840.114 98 [id number] Univers 00:00:00 00:00:00 Management Cathie L Y HEALTH 350.1.13.10 ity [place] [id number] [address] 2022-08-26 2022-08-26 Outpatient R LINDSEYKENNEDY [facility] [id number] Univers 09:00:00 09:00:00 DENISE lo o [facility] 2022-08-26 2022-08-26 Outpatient R DEANDRE [facility] [id number] Univers 09:00:00 09:00:00 DENISEALYSON lo o niharika [facility] 2022-08-19 2022-08-19 Outpatient R MAKEDA [facility] [id number] Univers 12:45:00 12:45:00 MATTNDA sarahy o [facility] 2022-08-19 2022-08-19 Case BeatrizJEANNEIT 1.2.840.114 97 [id number] Univers 00:00:00 00:00:00 Management [facility] 350.1.13.10 ity of [place] [id number] [address] 2022-08-18 2022-08-18 Outpatient R ZEENAT LAWS [facility] [id number] Univers 00:00:00 00:00:00 ZEENAT LAWS bryn [facility] 2022-08-10 2022-08-10 Outpatient R ASHFORD [facility] [id number] Univers 09:15:00 09:15:00 ALEXANDRIA lo o [facility] 2022-08-06 2022-08-06 Patient BrockJEANNEIT 1.2.840.114 [id number] Univers 00:00:00 00:00:00 Secure [facility] 350.1.13.10 ity of [place] [id number] [address] 2022-07-31 2022-07-31 Telephone [facility] 1.2.840.114 97 [id number] Univers 00:00:00 00:00:00 Denise Rae PLUMBER APPRENTICE 350.1.13.10 ity of REGIONAL 4.2.7.2.686 Ibrahima as MATERNAL [id number] [facility] ical & CHILD [address] [place] [address] 2022-07-29 2022-07-29 Case JEANEN HendersonIT 1.2.840.114 97 [id number] Univers 00:00:00 00:00:00 Management Cathie L Y HEALTH 350.1.13.10 ity [place] [id number] [address] 2022-07-28 2022-07-28 Telephone YOCASTA Carr 1.2.840.114 97 [id number] Univers 00:00:00 00:00:00 Christina COATS 350.1.13.10 it y of HOSPITAL 4.2.7.2.686 Ibrahima as [id number] [address] 2022-07-22 2022-07-22 JEANNE HartleyIT 1.2.840.114 97 [id number] Univers 00:00:00 00:00:00 Management Cathie L Y HEALTH 350.1.13.10 ity [place] [id number] [address] 2022-07-17 2022-07-17 Outpatient R ZEENAT LAWS [facility] [id number] Univers 09:00:00 09:41:25 ZEENAT LAWS [facility] 2022-07-17 2022-07-17 Office Provider, Ang-Rm[facility] 1 .2.840.114 [id number] Univers 09:00:00 09:41:25 Visit Alexandria Ashford PLUMBER APPRENTICE 350.1.13.10 ity of Zeenat Laws [facility] 4.2.7.2.686 [place] MATERNAL [id number] Med ical & CHILD 107 [facility] 2022-07-17 2022-07-17 [facility] [id number] Univers 08:30:00 08:30:00 ZEENAT LAWS [facility] 2022-07-17 2022-07-17 Outpatient R KELLY [facility] [id number] Univers 08:30:00 08:30:00 ZEENAT LAWSy of [facility] 2022-07-17 2022-07-17 Orders Doctor SINDI 1.2.840.114 [id number] Univers 00:00:00 00:00:00 Only Unassigned, JORGE L 350.1.13.10 ity of [place] [facility] 4.2.7.2.686 Ibrahima as [id number] [place] [address] [place] 2022-07-17 2022-07-17 Case Mukund Shepherd, [facility] 1.2.840.114 9 [id number] Univers 00:00:00 00:00:00 Management Cathie R Y HEALTH 350.1.13.10 ity of [place] [id number] [address] 2022-07-10 2022-07-10 Case Mukund Shepherd, [facility] 1.2.840.114 9 [id number] Univers 00:00:00 00:00:00 Management Cathie R Y HEALTH 350.1.13.10 ity [place] [id number] [address] 2022-07-09 2022-07-09 Case Mukund Shepherd, [facility] 1.2.840.114 9 [id number] Univers 00:00:00 00:00:00 Management Cathie R Y HEALTH 350.1.13.10 ity of [place] [id number] [address] 2022-07-06 2022-07-06 Case Mukund Shepherd, [facility] 1.2.840.114 9 [id number] Univers 00:00:00 00:00:00 Management Cathie R Y HEALTH 350.1.13.10 ity [place] [id number] [address] 2022-07-03 2022-07-03 Jeb Carr [facility] 1.2.840.114 [id number] Univers 00:00:00 00:00:00 Christina Y HEALTH 350.1.13.10 i ty of [place] 392.3731848 [address] 2022-07-03 2022-07-03 Patient Lilly, [facility] 1.2.840.114 96 [id number] Univers 00:00:00 00:00:00 Secure Msg Christina Y HEALTH 350.1.13.10 ity of [place] [id number] [address] 2022-07-02 2022-07-02 [employer] [facility] 1.2.840.114 9 [id number] Univers 11:45:00 12:00:00 Visit Brock Maryanne [facility] 350.1.13.10 ity of CLIN[place] [id number] [address] 2022-07-02 2022-07-02 Outpatient R BROCK [facility] [id number] Univers 09:30:00 11:03:35 [facility] 2022-07-02 2022-07-02 Office Brock [facility] 1.2.840.114 [id number] Univers 09:30:00 11:03:35 Visit [facility] 350.1.13.10 i ty of CL[place]ICS [place] [id number] [address] 2022-07-02 2022-07-02 Outpatient R BROCK [facility] [id number] Univers 09:30:00 11:03:35 MARYANNE [facility] 2022-07-02 2022-07-02 Outpatient R BROCK [facility] [id number] Univers 09:30:00 09:30:00 [facility] 2022-07-01 2022-07-01 Telephone JEANNE NolandIT 1.2.840.114 [id number] Univers 00:00:00 00:00:00 [facility] HEALTH 350.1.13.10 ity of CL[place] [id number] [address] 2022-06-30 2022-06-30 Case JEANNE AlvarezIT 1.2.840.114 9 [id number] Univers 00:00:00 00:00:00 Management Nechelle Y HEALTH 350.1.13.10 ity of [place] [id number] [address] 2022-05-06 2022-05-06 Bharat Henderson [facility] 1.2.840.114 95 [id number] Univers 00:00:00 00:00:00 Management Cathie L Y HEALTH 350.1.13.10 ity of CL[place] 497.6995464 [address] 2022-04-22 2022-04-22 Bharat Henderson, [facility] 1.2.840.114 94 [id number] Univers 00:00:00 00:00:00 Management Cathie L Y HEALTH 350.1.13.10 ity of CL[place] [id number] [address] 2022-03-25 2022-03-25 Bharat Henderson [facility] 1.2.840.114 94 [id number] Univers 00:00:00 00:00:00 Management Cathie L Y HEALTH 350.1.13.10 ity of [place] [id number] [address] 2021-12-30 2021-12-30 Case JEANNE AlvarezIT 1.2.840.114 9 [id number] Univers 00:00:00 00:00:00 Management Nechelle Y HEALTH 350.1.13.10 ity of CL[place] [id number] [address] 2021-12-30 2021-12-30 Case Kim [facility] 1.2.840.114 9 [id number] Univers 00:00:00 00:00:00 Management Nechelle Y HEALTH 350.1.13.10 ity of CL[place] [id number] [address] 2021-12-25 2021-12-25 [employer] Coach [facility] 1.2.840.114 9 [id number] Univers 11:30:00 11:45:00 Visit Maryanne Gutiérrez HEALTH 350.1.13.10 ity of CL[place] [id number] [address] 2021-12-25 2021-12-25 Outpatient R BROCK, [facility] [id number] Univers 11:30:00 11:30:00 MARYANNE ity of [facility] 2021-12-25 2021-12-25 Office Brock [facility] 1.2.840.114 [id number] Univers 09:30:00 10:00:00 Visit Maryanne Saul HEALTH 350.1.13.10 i ty of [place] [id number] [address] 2021-12-25 2021-12-25 Outpatient R GUTIÉRREZ, [facility] [id number] Univers 09:30:00 09:30:00 MARYANNE ity of [facility] 2021-12-25 2021-12-25 Case JEANNE AlvarezIT 1.2.840.114 9 [id number] Univers 00:00:00 00:00:00 Management Nechelle Y HEALTH 350.1.13.10 ity of [place] [id number] [address] 2021-12-08 2021-12-08 Case JEANNE AlvarezIT 1.2.840.114 9 [id number] Univers 00:00:00 00:00:00 Management Nechelle Y HEALTH 350.1.13.10 ity of CL[place] [id number] [address] 2021-12-08 2021-12-08 Case JEANNE AlvarezIT 1.2.840.114 9 [id number] Univers 00:00:00 00:00:00 Management Nechelle Y HEALTH 350.1.13.10 ity of CL[place] [id number] [address] 2021-09-24 2021-09-24 Case Harmeet [facility] 1.2.147.724 [id number] [id number] Univers 00:00:00 00:00:00 Management Arlette L Y HEALTH 350.1.13.10 ity of CLINICS [place] 777.1644482 [place] [address] [place] 2021-09-15 2021-09-15 Case Harmeet, [facility] 1.2.122.253 [id number] Univers 00:00:00 00:00:00 Management Arlette L Y HEALTH 350.1.13.10 ity of CL[place]ICS [place] [id number] [place] [address] [place] 2021-09-09 2021-09-09 Bharat Ga, [facility] 1.2.601.080 [id number] [id number] Univers 00:00:00 00:00:00 Management Arlette L Y HEALTH 350.1.13.10 ity of [place] [id number] [address] 2021-09-08 2021-09-08 Bharat Ga, [facility] 1.2.189.674 [id number] [id number] Univers 00:00:00 00:00:00 Management Arlette L Y HEALTH 350.1.13.10 ity of [place] [id number] [address] 2021-09-08 2021-09-08 Bharat Ga [facility] 1.2.001.340 [id number] Univers 00:00:00 00:00:00 Management Arlette L Y HEALTH 350.1.13.10 ity of [place] [id number] [address] 2021-06-18 2021-06-18 Outpatient Izaiah OSULLIVAN [facility] [id number] Univers 00:00:00 00:00:00 DENISE bundy [facility] 2021-06-12 2021-06-12 [employer] [facility] 1.2.840.114 8 [id number] Univers 10:38:00 11:24:13 Visit Maryanne Gutiérrez Y HEALTH 350.1.13.10 ity of CLINICS 4[place] [id number] [place] [address] [place] 2021-06-12 2021-06-12 Office Brock [facility] 1.2.840.114 [id number] Univers 09:41:43 10:11:43 Visit Maryanne Y HEALTH 350.1.13.10 i ty of [place] [id number] [address] 2021-06-12 2021-06-12 Outpatient R [facility] [id number] Univers 09:30:00 09:30:00 ity of [facility] 2021-06-12 2021-06-12 Case Harmeet, [facility] 1.2.583.707 [id number] Univers 00:00:00 00:00:00 Management Arlette L Y HEALTH 350.1.13.10 ity [place] [id number] [address] 2021-06-12 2021-06-12 Case Mukund Shepherd, [facility] 1.2.840.114 8 [id number] Univers 00:00:00 00:00:00 Management Cathie R Y HEALTH 350.1.13.10 ity of [place] [id number] [address] 2021-06-11 2021-06-11 Case Mukund Shepherd, [facility] 1.2.840.114 8 [id number] Univers 00:00:00 00:00:00 Management Cathie R Y HEALTH 350.1.13.10 ity of [place] [id number] [address] 2021-06-11 2021-06-11 Case Mukund Shepherd, [facility] 1.2.840.114 8 [id number] Univers 00:00:00 00:00:00 Management Cathie R Y HEALTH 350.1.13.10 ity of [place] [id number] [address] 2021-06-10 2021-06-10 Case Kim, [facility] 1.2.840.114 8 [id number] Univers 00:00:00 00:00:00 Management Nechelle Y HEALTH 350.1.13.10 ity of [place] [id number] [address] 2021-06-05 2021-06-05 Outpatient R [facility] [id number] Univers 00:00:00 00:00:00 DENISE bundy [facility] 2021-06-05 2021-06-05 Case Nuzhat, [facility] 1.2.840.114 86 [id number] Univers 00:00:00 00:00:00 Management Rola L Y HEALTH 350.1.13.10 ity of [place] [id number] [address] 2021-05-28 2021-05-28 [facility] 1.2.840.114 86 [id number] Univers 00:00:00 00:00:00 Management Cathie L Y HEALTH 350.1.13.10 ity of [place] [id number] [address] 2021-05-22 2021-05-22 Outpatient R DEANDRE, [facility] [id number] Univers 00:00:00 00:00:00 DENISE bundy [facility] 2021-05-07 2021-05-07 Case Nahunjosrmatt, [facility] 1.2.840.114 85 [id number] Univers 00:00:00 00:00:00 Management Cathie L Y HEALTH 350.1.13.10 ity of [place] [id number] [address] 2021-04-23 2021-04-23 [facility] 1.2.840.114 85 [id number] Univers 00:00:00 00:00:00 Management Cathie L Y HEALTH 350.1.13.10 ity of [place] [id number] [address] 2021-04-16 2021-04-16 Bharat Henderson [facility] 1.2.840.114 85 [id number] Univers 00:00:00 00:00:00 Management Cathie L Y HEALTH 350.1.13.10 ity of [place] [id number] [address] 2021-03-21 2021-03-21 Office Deandre [facility] 1.2.088.120 [id number] Univers 08:41:57 09:26:13 Visit Denise Rae PLUMBER APPRENTICE 350.1.13.10 ity of REGIONAL 4.2.7.2.686 Ibrahima as MATERNAL [id number] Med ical & CHILD [address] [place] [address] 2021-03-21 2021-03-21 Outpatient R DEANDRE [facility] [id number] Univers 09:00:00 09:00:00 DENISE smithy o f [facility] 2021-03-21 2021-03-21 Outpatient R [facility] [id number] Univers 08:30:00 08:30:00 ity of [facility] 2021-03-21 2021-03-21 Orders Doctor SINDI 1.2.840.114 [id number] Univers 00:00:00 00:00:00 Only Unassigned, JORGE L 350.1.13.10 ity of [place] [facility] 4.2.7.2.686 [place] [id number] [address] 2021-02-19 2021-02-19 Telephone JEANNE Wagner 1.2.840.114 84 [id number] Univers 00:00:00 00:00:00 Bruna Y HEALTH 350.1.13.10 ity [place] [id number] [address] 2021-02-19 2021-02-19 Case JEANNE Henderson 1.2.840.114 84 [id number] Univers 00:00:00 00:00:00 Management Cathie L Y HEALTH 350.1.13.10 ity of [place] [id number] [address] 2021-01-08 2021-01-08 Telephone JEANNE Henderson 1.2.840.114 [id number] Univers 00:00:00 00:00:00 Cathie L Y HEALTH 350.1.13.10 ity of [place] [id number] [address] 2021-01-02 2021-01-02 Patient Elio [facility] 1.2.840.114 [id number] Univers 00:00:00 00:00:00 Outreach Ramiro PRIMARY 350.1.13.10 i ty of [facility] [place].2.[place] [id number] [address] 2020-10-16 2020-10-16 [facility] 1.2.926.077 [id number] Univers 00:00:00 00:00:00 Management [facility] Y HEALTH 350.1.13.10 ity of [place] [id number] [address] 2020-10-08 2020-10-08 Telephone CHITO Alvarez 1.2.840.114 [id number] Univers 00:00:00 00:00:00 [facility] 350.1.13.10 ity of CL[place] [id number] [address] 2020-10-03 2020-10-03 [employer] [facility] 1.2.840.114 [id number] Univers 11:22:20 11:37:20 Visit Maryanne Gutiérrez [facility] 350.1.13.10 ity of [place] [phone] [address] 2020-10-03 2020-10-03 Office JEANNE Gutiérrez 1.2.840.114 [id number] Univers 10:04:21 11:16:18 Visit [facility] 350.1.13.10 i ty of [place] [id number] [address] 2020-10-03 2020-10-03 Outpatient R BROCK [facility] [id number] Univers 10:00:00 10:00:00 MARYANNE lo of [facility] 2020-10-03 2020-10-03 Telephone CHITO Alvarez 1.2.840.114 [id number] Univers 00:00:00 00:00:00 Nechelle Y HEALTH 350.1.13.10 ity of [place] [id number] [address] 2020-10-03 2020-10-03 Orders Doctor SINDI 1.2.840.114 [id number] Univers 00:00:00 00:00:00 Only Unassigned, JORGE L 350.1.13.10 ity of [facility] 4.2.7.2.686 [place] [phone] [address] 2020-10-02 2020-10-02 Case Mukund Shepherd, [facility] 1.2.840.114 [id number] Univers 00:00:00 00:00:00 Management Cathie R Y HE[facility] 350.1.13.10 [place] [id number] [address] 2020-10-02 2020-10-02 [facility]phone [facility] 1.2.840.114 [id number] Univers 00:00:00 00:00:00 Nechelle Y HEALTH 350.1.13.10 ity of [place] [id number] [address] 2020-09-30 2020-09-30 [facility]ules [facility] 1.2.840.114 [id number] Univers 00:00:00 00:00:00 Maryanne Y HEALTH 350.1.13.10 i ty [place] [id number] [address] 2020-06-25 2020-06-25 Telephone [facility] 1.2.840.114 [id number] Univers 00:00:00 00:00:00 Cathie L Y HEALTH 350.1.13.10 ity [place] [id number] [address] 2020-06-25 2020-06-25 Case Ga, [facility] 1.2.566.999 [id number] Univers 00:00:00 00:00:00 Management Arlette L Y HE[facility] 350.1.13.10 ity of [place] [phone] [address] 2020-06-06 2020-06-06 hBarat Ga [facility] 1.2.683.140 [id number] Univers 00:00:00 00:00:00 Management Arlette L [facility] 350.1.13.10 ity [place] [id number] [address] 2020-04-30 2020-04-30 [place] Beatriz [facility] 1.2.840.114 [id number] Univers 00:00:00 00:00:00 Cathie L Y HEALTH 350.1.13.10 ity of [place] [phone] [address] 2020-04-17 2020-04-17 [place] [facility] 1.2.840.114 [id number] Univers 00:00:00 00:00:00 Cathie L Y HE[facility] 350.1.13.10 ity of [place] [phone] [address] 2020-04-10 2020-04-10 Bharat Henderson [facility] 1.2.840.114 [id number] Univers 00:00:00 00:00:00 Management Cathie L Y HEALTH 350.1.13.10 ity of [place] [phone] [address] 2020-04-08 2020-04-08 JEANNE BarrettIT 1.2.775.394 [id number] Univers 00:00:00 00:00:00 Management Arlette L Y HEALTH 350.1.13.10 ity [place] [id number] [address] 2020-03-28 2020-03-28 [employer] Coach [facility] 1.2.840.114 [id number] Univers 10:05:22 10:20:22 Visit Maryanne Gutiérrez Y HEALTH 350.1.13.10 ity of [place] 4[place] [id number] [address] 2020-03-28 2020-03-28 Office Brock, [facility] 1.2.840.114 [id number] Univers 08:50:00 09:53:29 Visit Maryanne Y HEALTH 350.1.13.10 i ty of [place] 4[place] [phone] [address] 2020-03-28 2020-03-28 [facility] [id number] Univers 09:00:00 09:00:00 MARYANNE ity [facility] 2020-03-21 2020-03-21 Outpatient R [facility]UTIÉRREZ [facility] [facility] [id number] Univers 11:30:00 11:30:00 MARYANNE [facility] 2020-03-15 2020-03-15 Case Mukund Shepherd, UNIVERSIT [id number] Univers 00:00:00 00:00:00 Management Cathie R Y HEALTH [id number] [place] [id number] [address] 2020-02-29 2020-02-29 Outpatient R [facility] [id number] Univers 09:30:00 09:30:00 ity of [facility] 2020-02-22 2020-02-22 Outpatient R [facility] [id number] Univers 10:00:00 10:00:00 ity of [facility] 2020-02-22 2020-02-22 Case Harmeet UNIVERSIT [id number] Univers 00:00:00 00:00:00 Management Arlette L Y HEALTH [id number] [place] [id number] [address] 2020-02-22 2020-02-22 Case Harmeet, UNIVERSIT [id number] Univers 00:00:00 00:00:00 Management Arlette L Y HEALTH [id number] [place] [id number] [address] 2020-02-20 2020-02-20 Case Harmeet, UNIVERSIT [id number] Univers 00:00:00 00:00:00 Management Arlette L Y HEALTH [id number] [place] [id number] [address] 2019-06-27 2019-06-27 Telephone [facility] [id number] Univers 00:00:00 00:00:00 Cathie L Y HEALTH [id number] [place] [id number] [address] 2019-05-31 2019-05-31 Telephone [facility] [id number] Univers 00:00:00 00:00:00 Cathie L Y HEALTH 350.1.13.10 [place] [phone] [address] 2019-05-18 2019-05-18 High School Coach [facility] UN[facility]ERSIT [id number] [facility] 10:59:02 11:24:46 Visit Maryanne Gutiérrez Y HEALTH 350.1.13.10 it[place] [phone] [place] [address] [place] 2019-05-18 2019-05-18 Office Brock [facility] [id number] Univers 09:51:54 11:17:04 Visit Maryanne Y HEALTH 350.1.13.10 i ty [place] [phone] [address] 2019-05-18 2019-05-18 Case Mukund Shepherd, [facility] [id number] Univers 00:00:00 00:00:00 Management Cathie R Y HEALTH [id number] [place] [id number] [address] 2019-05-18 2019-05-18 Bharat Ga, [facility] [id number] Univers 00:00:00 00:00:00 Management Arlette L Y HEALTH [id number] [place] [id number] [address] 2019-05-17 2019-05-17 Telephone JEANNE Noland [id number] Univers 00:00:00 00:00:00 Rola Saul [facility] [id number] it[place] [id number] [address] 2019-05-15 2019-05-15 Case Nuzhat [facility] [id number] Univers 00:00:00 00:00:00 Management Rola Saul [facility] [id number] [place] [id number] [address] 2019-05-05 2019-05-05 Telephone CHITO Paul [id number] Univers 00:00:00 00:00:00 Philipp L [facility] 350.1.13.10 ity [place] [phone] [address] Results Test Description Test Time Test Comments Results Result Comments Source CD4 SUBSET ASSAY 2023-02-05 17:28:43 Test Item Value Reference Range Interpretation Comme nts CD4 % (test code = 8123-2) 52 % 31-60 CD4 Absolute (test code = 75349-0) 889 See_Comment [Automated message] The system which ge nerated this result transmit chiqui reference range: 410 - 1, 590 Cells/?L. The reference r vicky was not used to interpr et this result as normal/abnor mal. Lab Interpretation (test code = Normal 52589-3) [id number] 16:04:04 Test Item Value Reference Range Interpretation Comments Syphilis IgG/IgM (test Non-reactive Non-reactive code = 95416-8) PRITI (test code = PRITI) Non-reactive - No serologic evidence of T. pallidum infection. Cannot exclude incubating or early syphilis. Submit a second specimen in 2-4 weeks if syphilis is clinically suspected. Equivocal - Further testing to follow. Reactive - Further testing to follow. Lab Interpretation (test Normal code = 87381-7) [facility] IMMUNODEFICIENCY VIRUS 1 (HIV-1) BY QUANTITATIVE [id number] 14:59:54 Test Item Value Reference Range Interpretation Comments HIV-1 Quantitative Not Detected Not Detected Interpretation (test code = 4335191521) PRITI (test code = PRITI) The Aptima HIV-1 Quant assay is an FDA-approved nucleic acid amplification test (NAAT) for the quantitation of human immunodeficiency virus type 1 (HIV-1) RNA in human plasma from HIV-1 infected individuals. ?It is intended for use as an aid in monitoring the effects of antiretroviral treatment. ?It is not approved for use as a donor screening test for HIV-1 or as a diagnostic test to confirm the presence of HIV-1 infection. The quantitative range of this assay is 1.47 - 7.00 log copies/mL or 30 - 10,000,000 copies/mL. An interpretation of "Not Detected" does not rule out the presence of inhibitors in the patient specimen or HIV-1 RNA concentration below the level of detection of the test. ?Care should be taken when interpreting any single viral load determination. Detected, not Quantifiable: HIV-1 RNA detected, but at a level below 30 copies/mL (1.47 log copies/mL). ?HIV-1 RNA concentration is below the lower limit of quantitation of the assay. Indeterminate: Error indicated in the generation of the result. ?Please submit a new specimen for repeat testing if clinically indicated. Lab Interpretation Normal (test code = 70621-1) [facility]. METABOLIC PANEL ([id number])2023-02-04 19:04:32 Test Item Value Reference Range Interpretation Comments NA (test code = 138 mmol/L 135-145 5749836359) K (test code = 4.9 mmol/L 3.5-5.0 Slight 8592766932) hemolysis CL (test code = 107 mmol/L 98-108 9734557898) CO2 TOTAL (test code 21 mmol/L 23-31 L = 4019428316) AGAP (test code = 10 2-16 1438949331) BUN (test code = 11 mg/dL 7-23 Slight 2739438740) hemolysis GLUCOSE (test code = 93 mg/dL 70-110 9833743079) CREATININE (test code 0.72 mg/dL 0.50-1.04 = 4320206716) TOTAL BILI (test code 0.7 mg/dL 0.1-1.1 = 8101236905) CALCIUM (test code = 9.5 mg/dL 8.6-10.6 4221590379) T PROTEIN (test code 8.0 g/dL 6.3-8.2 = 4848689631) ALBUMIN (test code = 4.5 g/dL 3.5-5.0 5268528110) ALK PHOS (test code = 57 U/L 34-122 Slight 8950288109) hemolysis ALTv (test code = 23 U/L 5-35 1742-6) AST(SGOT) (test code 31 U/L 13-40 Slight = 1969874749) hemolysis eGFR (test code = 86.8 mL/min/1.73m2 9262577430) PRITI (test code = PRITI) Association of Glomerular Filtration Rate (GFR) and Staging of Kidney Disease* + -----+ --------+ +| GFR (mL/min/1.73 m2) ?| With Kidney Damage ?| ?Without Kidney Damage+ +------- +---- --+| ?>90 ?| ?Stage one ?| ? Normal ?+ ------+ ---------+--------- +| ?60-89 ?| ?Stage two ?| ? Decreased GFR ? + -----+ --------+ +| ?30-59 ?| ?Stage three ?| ? Stage three ? + -----+ --------+ +| ?15-29 ?| ?Stage four ? | ? Stage four ?+ ------+ ---------+--------- +| ?<15 (or dialysis) ? ?| ?Stage five ? | ? Stage five ?+ ------+ ---------+--------- + *Each stage assumes the associated GFR level has been in effect for at least three months. ?Stages 1 to 5, with or without kidney disease, indicate chronic kidney disease. Notes: Determination of stages one and two (with eGFR >59mL/min/1.73 m2) requires estimation of kidney damage for at least three months as defined by structural or functional abnormalities of the kidney, manifested by either:Pathological abnormalities or Markers of kidney damage (including abnormalities in the composition of the blood or urine or abnormalities in imaging tests). Lab Interpretation Abnormal (test code = 26535-6) [facility]
[2023-09-14] MEDS ORDERED: FAMOTIDINE 20 MG/2 ML VIAL IV ONE (03:38)
[2023-09-14] MEDS ORDERED: ONDANSETRON 4 MG/2 ML VIAL ONE (03:38)
[2023-09-14] MEDS ORDERED: NA CHLORIDE 0.9% 1,000 ML ONE (03:38)
[2023-09-14 04:01] LABS: Absolute Lymphocytes (CBC) 1.8 K/uL (0.7-4.9); Hematocrit 40.3 % (36.0-45.0); Lymphocytes % 24.1 % (15.3-44.8); MCV 84.3 fL (80-100); MPV 7.8 fL (7.6-11.3); Platelets 326 thou/uL (152-406); RBC Red Blood Cell Count 4.79 M/uL (3.86-4.86)
[2023-09-14 04:59] LABS: Albumin 3.7 g/dL (3.4-5.0); Bilirubin Total 0.3 mg/dL (0.2-1.0); Potassium 3.7 mEq/L (3.5-5.1); Protein, Total 8.2 g/dL (6.4-8.2)
[2023-09-14 05:01] LABS: Specific Gravity >= 1.030 (1.005-1.030); Urine Bilirubin Negative (Negative); Urine Blood Negative (Negative); Urine Clarity Clear (Clear); Urine Color Yellow (Yellow); Urine Glucose Negative (Negative); Urine Protein 1+ (Negative); Urine Urobilinogen 0.2 mg/dL (0.2-1.0)
[2023-09-14 05:10] LABS: Urine Bacteria None Seen /HPF (<20); Urine Mucus Slight /HPF (None Seen); Urine RBC <5 /HPF (None Seen)
[2023-09-14 05:31] LABS: Specific Gravity > 1.030 (1.005-1.030)
--- NOTE | 2023-09-14 06:22 | EDPHYS ---
Physician Documentation [facility] Name: Lauren Parker Age: 47 yrs Sex: Female : 1975 Arrival Date: 09/14/2023 Time: 02:18 Bed 3 Private MD: ED Physician Pineda Hurtado HPI: 09/14 03:05 This 47 yrs old Female presents to ER via Ambulatory with complaints of sp4 Abdominal Pain. 03:05 57-year-old female presents with episodic abdominal pain in the epigastric right upper sp4 quadrant area for the past 2 months usually after meals. Patient reports episodic vomiting as well. . 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 - Social history:: Smoking status: Patient denies any tobacco usage or history of. Patient uses alcohol, occasionally. Patient/guardian denies using street drugs. - Family history:: not pertinent. ROS: 03:05 Constitutional: Negative for fever, chills, and weight loss, Abdomen/GI: Positive sp4 abdominal pain, positive nausea, positive vomiting 03:05 All other systems are negative, Exam: 03:05 Constitutional: This is a well developed, well nourished patient who is awake, alert, sp4 and in no acute distress. Head/Face: Normocephalic, atraumatic. Eyes: Pupils equal round and reactive to light, extra-ocular motions intact. Lids and lashes normal. Conjunctiva and sclera are not injected. Cornea within normal limits. Periorbital areas with no swelling, redness, or edema. ENT: Nares patent. No nasal discharge, no septal abnormalities noted. Tympanic membranes are normal and external auditory canals are clear. Oropharynx with no redness, swelling, or masses, exudates, or evidence of obstruction, uvula midline. Mucous membranes moist. Neck: Trachea midline, no thyromegaly or masses palpated, and no cervical lymphadenopathy. Supple, full range of motion without nuchal rigidity, or vertebral point tenderness. Chest/axilla: Normal chest wall appearance and motion. Nontender with no deformity. No lesions are appreciated. Cardiovascular: Regular rate and rhythm with a normal S1 and S2. No gallops, murmurs, or rubs. Normal PMI, no JVD. No pulse deficits. Respiratory: Lungs have equal breath sounds bilaterally, clear to auscultation and percussion. No rales, rhonchi or wheezes noted. No increased work of breathing, no retractions or nasal flaring. Abdomen/GI: Soft, with normal bowel sounds. No distension or tympany. No guarding or rebound. Positive upper abdominal tenderness Back: No spinal tenderness. No costovertebral tenderness. Skin: Warm, dry with normal turgor. Normal color with no rashes, no lesions, and no evidence of cellulitis. MS/ Extremity: Pulses equal, no cyanosis. Neurovascular intact. Full, normal range of motion. Neuro: Awake and alert, GCS 15, oriented to person, place, time, and situation. Cranial nerves II-XII grossly intact. Motor strength 5/5 in all extremities. Sensory grossly intact. Psych: Awake, alert, with orientation to person, place and time. Behavior, mood, and affect are within normal limits Vital Signs: 02:53 BP 124 / 86; Pulse 90; Resp 19; Temp 97.3; Pulse Ox 99% ; Weight 83.91 kg; Pain 0/10; jj7 04:00 BP 138 / 84; Pulse 81; Resp 17 S; Pulse Ox 97% on R/A; ha1 04:53 BP 125 / 81; Pulse 84; Resp 15 S; Pulse Ox 96% ; ha1 05:45 BP 126 / 77; Pulse 86; Resp 17; Pulse Ox 94% ; jj7 06:45 BP 124 / 81; Pulse 78; Resp 16; Pulse Ox 97% ; jj7 02:53 Pain Scale: Adult jj7 MDM: 03:19 Patient medically screened. sp4 06:12 ED course: TECHNIQUE: Real-time ultrasound of the right upper quadrant with image sp4 documentation. COMPARISON: No relevant prior studies available. FINDINGS: Gallbladder: Cholelithiasis. No gallbladder wall thickening. No pericholecystic fluid. Common bile duct: Common bile duct is mildly dilated measuring 7.8 mm in diameter. No stones. IMPRESSION: 1. Cholelithiasis. No gallbladder wall thickening. No pericholecystic fluid. 2. Common bile duct is mildly dilated measuring 7.8 mm in diameter.. 06:20 ED course: CT - COMPARISON: No relevant prior studies available. FINDINGS: Lung bases: sp4 Unremarkable. No mass. No consolidation. ABDOMEN: Liver: Unremarkable. No mass. Gallbladder and bile ducts: Cholelithiasis. No ductal dilation. Pancreas: Unremarkable. No mass. No ductal dilation. Spleen: Unremarkable. No splenomegaly. Adrenals: Unremarkable. No mass. Kidneys and ureters: Unremarkable. No solid mass. No hydronephrosis. Stomach and bowel: Unremarkable. No obstruction. No mucosal thickening. PELVIS: Appendix: No findings to suggest acute appendicitis. Bladder: Unremarkable. Reproductive: Slight heterogeneity involving the lower uterine segment/cervix. ABDOMEN and PELVIS: Intraperitoneal space: Small amount of free fluid in the lower pelvis. No free air. Bones/joints: No acute fracture. No dislocation. Soft tissues: Unremarkable. Vasculature: Unremarkable. No abdominal aortic aneurysm. Lymph nodes: Unremarkable. No enlarged lymph nodes. IMPRESSION: 1. Cholelithiasis. 2. Additional non-emergent findings as above. . 06:23 Differential Diagnosis altered mental status, sepsis, flu. Data reviewed: vital signs, sp4 nurses notes, EMS record, lab test result(s), radiologic studies, doppler, ultrasound. Consideration of Admission/Observation Escalation of care including admission/observation considered. ED course: Patient stable for discharge home with follow-up with general surgeon for cholecystectomy.. 09/14 03:04 Order name: CBC with Diff; Complete Time: 06:10 sp4 09/14 03:04 Order name: CMP; Complete Time: 06:10 sp4 09/14 03:04 Order name: Lipase; Complete Time: 06:10 sp4 09/14 03:04 Order name: Test, Urine; Complete Time: 06:10 sp4 09/14 05:01 Order name: Urinalysis w/ reflexes; Complete Time: 06:10 EDMS 09/14 03:04 Order name: Abdomen Limited US sp4 09/14 03:04 Order name: CT Abd/Pelvis - IV Contrast Only 4 09/14 03:04 Order name: IV Saline Lock; Complete Time: 03:51 sp4 09/14 03:04 Order name: Labs collected and sent; Complete Time: 03:51 sp4 Administered Medications: 03:35 Drug: NS 0.9% IV 1000 ml IV at 1 bolus Per protocol; 1000 mL bolus Route: IV; Rate: 1 jj7 bolus; Site: right antecubital; 04:40 Follow up: IV Status: Completed infusion 03:35 Drug: Famotidine IVP 20 mg IVP once; dilute with 10 mL 0.9% NaCl; give over 2 minutes j Route: IVP; Site: right antecubital; 04:00 Follow up: Response: No adverse reaction 03:35 Drug: Ondansetron IVP 4 mg IVP once; over 2 minutes Route: IVP; Site: right antecubital;j 04:00 Follow up: Response: No adverse reaction Disposition Summary: 09/14/23 06:22 Discharge Ordered Notes: Location: Home sp4 Problem: new sp4 Symptoms: have improved sp4 Condition: Stable sp4 Diagnosis - Other cholelithiasis without obstruction sp4 - Cholelithiasis, biliary colic, postprandial pain sp4 Followup: sp4 - With: Tacos Gamez MD - When: 7 - 10 days - Reason: Recheck today's complaints Discharge Instructions: - Discharge Summary Sheet sp4 - Cholelithiasis sp4 Forms: - Patient Portal Instructions sp4 Prescriptions: - Ibuprofen 800 mg Oral Tablet - take 1 tablet ORAL route every 8 hours As needed take with food; 30 tablet; sp4 Refills: 0, Product Selection Permitted - promethazine 25 mg Oral Tablet - take 1 tablet ORAL route every 6 hours As needed; 20 tablet; Refills: 0, sp4 Product Selection Permitted Signatures: Dispatcher [employer] Lopez Wilkinson RN RN jj7 Pineda Hurtado MD MD sp4 Corrections: (The following items were deleted from the chart) 05:13 03:05 Urinalysis+U.LAB.BRZ ordered. BENIGNO PELAEZ
--- NOTE | 2023-09-14 06:22 | ER ---
Nurse's Notes [facility] Name: Lauren Parker Age: 47 yrs Sex: Female : 1975 Arrival Date: 09/14/2023 Time: 02:18 Bed 3 Private MD: Diagnosis: Other cholelithiasis without obstruction;Cholelithiasis, biliary colic, postprandial pain Presentation: 09/14 02:53 Chief complaint: Patient states: ABD PAIN THAT COMES AND GOES FOR A FEW MONTHS. jj7 CURRENTLY NOT HAVING ANY PAIN. WANTED TO GET CHECKED OUT BEFORE THE PAIN COMES BACK. Coronavirus screen: At this time, the client does not indicate any symptoms associated with coronavirus-19. Ebola Screen: No symptoms or risks identified at this time. Initial Sepsis Screen: Does the patient meet any 2 criteria? No. Patient's initial sepsis screen is negative. Does the patient have a suspected source of infection? No. Patient's initial sepsis screen is negative. Risk Assessment: Do you want to hurt yourself or someone else? Patient reports no desire to harm self or others. 02:53 Method Of Arrival: Ambulatory [facility] 02:53 Acuity: JANESSA 3 jj7 Triage Assessment: 02:59 General: Appears in no apparent distress. comfortable, Behavior is calm, cooperative, jj7 appropriate for age. Pain: Denies pain. GI: No deficits noted. Reports upper abdominal pain, vomiting. 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 - Social history:: Smoking status: Patient denies any tobacco usage or history of. Patient uses alcohol, occasionally. Patient/guardian denies using street drugs. - Family history:: not pertinent. Screenin:03 [facility] ED Fall Risk Assessment (Adult) History of falling in the last 3 months, jj7 including since admission No falls in past 3 months (0 pts) Confusion or Disorientation No (0 pts) Intoxicated or Sedated No (0 pts) Impaired Gait No (0 pts) Mobility Assist Device Used No (0 pt) Altered Elimination No (0 pt) Score/Fall Risk Level 0 - 2 = Low Risk Oriented to surroundings, Maintained a safe environment. Abuse screen: Denies threats or abuse. Nutritional screening: No deficits noted. Tuberculosis screening: No symptoms or risk factors identified. Assessment: 03:00 GI: Bowel sounds present X 4 quads. Abd is soft and non tender X 4 quads. jj7 03:03 Reassessment: SEE TRIAGE ASSESSMENT. jj7 04:00 Reassessment: Patient and/or family updated on plan of care and expected duration. Pain ha1 level reassessed. Patient is alert, oriented x 3, equal unlabored respirations, skin warm/dry/pink. Patient states symptoms have improved. Vital Signs: 02:53 BP 124 / 86; Pulse 90; Resp 19; Temp 97.3; Pulse Ox 99% ; Weight 83.91 kg; Pain 0/10; jj7 04:00 BP 138 / 84; Pulse 81; Resp 17 S; Pulse Ox 97% on R/A; ha1 04:53 BP 125 / 81; Pulse 84; Resp 15 S; Pulse Ox 96% ; ha1 05:45 BP 126 / 77; Pulse 86; Resp 17; Pulse Ox 94% ; jj7 06:45 BP 124 / 81; Pulse 78; Resp 16; Pulse Ox 97% ; jj7 02:53 Pain Scale: Adult jj7 ED Course: 02:21 Patient arrived in ED. gm2 02:59 Triage completed. jj7 03:02 Arm band placed on right wrist. jj7 03:03 Pineda Hurtado MD is Attending Physician. sp4 03:30 Patient has correct armband on for positive identification. Bed in low position. Call jj7 light in reach. Side rails up X 1. Adult w/ patient. Warm blanket given. 03:30 Inserted saline lock: 20 gauge in right antecubital area, using aseptic technique. jj7 Blood collected. 03:51 CBC with Diff Sent. jj7 03:51 CMP Sent. jj7 03:51 Lipase Sent. jj7 03:51 Test, Urine Sent. jj7 03:54 Abdomen Limited US In Process Unspecified. EDMS 05:12 Lopez Garcia RN is Primary Nurse. jj7 05:50 CT Abd/Pelvis - IV Contrast Only In Process Unspecified. EDMS 06:21 Tacos Gamez MD is Referral Physician. sp4 07:02 No provider procedures requiring assistance completed. IV discontinued, intact, jj7 bleeding controlled, No redness/swelling at site. Pressure dressing applied. Administered Medications: 03:35 Drug: NS 0.9% IV 1000 ml IV at 1 bolus Per protocol; 1000 mL bolus Route: IV; Rate: 1 jj7 bolus; Site: right antecubital; 04:40 Follow up: IV Status: Completed infusion jj7 03:35 Drug: Famotidine IVP 20 mg IVP once; dilute with 10 mL 0.9% NaCl; give over 2 minutes jj7 Route: IVP; Site: right antecubital; 04:00 Follow up: Response: No adverse reaction jj7 03:35 Drug: Ondansetron IVP 4 mg IVP once; over 2 minutes Route: IVP; Site: right antecubital;jj7 04:00 Follow up: Response: No adverse reaction jj7 Medication: 03:03 VIS not applicable for this client. jj7 Outcome: 06:22 Discharge ordered by MD. sp4 07:02 Discharged to home ambulatory, with family, jj7 07:02 Condition: improved 07:02 Discharge instructions given to patient, family, Instructed on discharge instructions, follow up and referral plans. medication usage, Demonstrated understanding of instructions, follow-up care, medications, Prescriptions given X 2, 07:07 Patient left the ED. jj7 Signatures: Dispatcher [employer] EDMS Maryellen Cardona RN RN ha1 Lopez Garcia RN RN jj7 Pineda Hurtado MD MD sp4 Ashely Henning gm2 Corrections: (The following items were deleted from the chart) 05:13 03:51 Urinalysis+U.LAB.BRZ drawn and sent. jj7 EDMS
[2023-09-14 07:17] VITALS: TEMP 97.3
[2023-09-14 07:28] VITALS: BP 125/81; O2SAT 96
--- NOTE | 2023-09-14 11:37 | RAD REPORT ---
EXAM DESCRIPTION: CT - Abdomen Pelvis W Contrast - 09/14/2023 5:48 am CLINICAL HISTORY: The patient is 47 years old and is Female; ABD PAIN TECHNIQUE: Axial computed tomography images of the abdomen and pelvis with intravenous contrast. S agittal and coronal reformatted images were created and reviewed. This CT exam was performed using one or more of the following dose reduction techniques: automated exposure control, adjustment of t he mA and/or kV according to patient size, and/or use of iterative reconstruction technique. COMPARISON: No relevant prior studies available. FINDINGS: Lung bases: Unremarkable. No mass. No consolidation. ABDOMEN: Liver: Unremarkable. No mass. Gallbladder and bile ducts: Cholelithiasis. No ductal dilation. Pancreas: Unremarkable. No mass. No ductal dilation. Spleen: Unremarkable. No splenomegaly. Adrenals: Unremarkable. No mass. Kidneys and ureters: Unremarkable. No solid mass. No hydronephrosis. Stomach and bowel: Unremarkable. No obstruction. No mucosal thickening. PELVIS: Appendix: No findings to suggest acute appendicitis. Bladder: Unremarkable. Reproductive: Slight heterogeneity involving the lower uterine segment/cervix. ABDOMEN and PELVIS: Intraperitoneal space: Small amount of free fluid in the lower pelvis. No free air. Bones/joints: No acute fracture. No dislocation. Soft tissues: Unremarkable. Vasculature: Unremarkable. No abdominal aortic aneurysm. Lymph nodes: Unremarkable. No enlarged lymph nodes. IMPRESSION: 1. Cholelithiasis. 2. Additional non-emergent findings as above. Electronically signed by: Ihsan Morgan MD 09/14/2023 06:15 AM SURVEY CREW CHIEF Due to temporary technical issues with the PACS/Fluency reporting system, reports are being signed by the in house radiologists without review as a courtesy to insure prompt reporting. The interpreting radiologist is fully responsible for the content of the report.
--- NOTE | 2023-09-15 10:22 | RAD REPORT ---
EXAM DESCRIPTION: US - Abdomen Exam Limited - 09/14/2023 3:52 am CLINICAL HISTORY: The patient is 47 years old and is Female; ABD PAIN TECHNIQUE: Real-time ultrasound of the right upper quadrant with image documentation. COMPARISON: No relevant prior studies available. FINDINGS: Gallbladder: Cholelithiasis. No gallbladder wall thickening. No pericholecystic fluid. Common bile duct: Common bile duct is mildly dilated measuring 7.8 mm in diameter. No stones. IMPRESSION: 1. Cholelithiasis. No gallbladder wall thickening. No pericholecystic fluid. 2. Common bile duct is mildly dilated measuring 7.8 mm in diameter. Electronically signed by: Ihsan Morgan MD 09/14/2023 05:01 AM VOLCANOLOGIST Due to temporary technical issues with the PACS/Fluency reporting system, reports are being signed by the in house radiologist without review as a courtesy to ensure prompt reporting. The interpreting r adiologist is fully responsible for the content of the report.
== END 2023-09-14 07:07 | disposition home or self-care (01) ==
LOC: ER 02:18
DX: K80.80 Other cholelithiasis without obstruction (principal); K80.50 Calculus of bile duct without cholangitis or cholecystitis without obstruction
CPT/HCPCS: 36415; 74177; 76705; 80053; 81001; 81025; 83690; 85025; 96361; 96374; 96375; 99284; J2405; J7030; Q9967